=== PATIENT | male | born 1975 | race Caucasian/White ===

== ENCOUNTER → 2017-05-07 09:02 | Outpatient (CLI) | payer BC, SELFPAY ==
[2017-05-07 09:56] LABS: Alanine Aminotransferase 44 U/L (12-78); Albumin Level 3.8 gm/dL (3.4-5.0); Alkaline Phosphatase 127 U/L (46-116); Aspartate Amino Transferase 21 U/L (15-37); Bilirubin,Total 0.7 mg/dL (0.2-1.0); Blood Urea Nitrogen 15 mg/dL (7-18); Carbon Dioxide 30 mmol/L (21.0-32.0); Chloride 100 mmol/L (98-107); Chol/HDL Ratio 3.5 (1-3.5); Cholesterol 161 mg/dL (140-200); Creatinine,Serum 0.96 mg/dL (0.70-1.30); Estimated Glomerular Filt Rate 87 ml/min (>60); GFR (African American) 105 ML/MIN (>60); Glucose 264 mg/dL (74-106); HDL Cholesterol 46 mg/dL (27-67); LDL Cholesterol 102 mg/dL (0-130); Sodium 135 mmol/L (136-145); Thyroid Stimulating Hormone 0.76 uIU/ml (0.358-3.740); Total Protein,Serum 7.8 gm/dL (6.4-8.2); Triglycerides 66 mg/dL (30-200); VLDL Cholesterol 13 mg/dL (0-40)
[2017-05-07 10:59] LABS: Hemoglobin A1C 7.4 % (0.0-7.0)
== END ==
PROVIDERS: PCP Family Medicine; Visit Provider Family Medicine
DX: E10.41 Type 1 diabetes mellitus with diabetic mononeuropathy (principal)
CPT/HCPCS: 36415; 80053; 80061; 83036; 84443

== ENCOUNTER → 2017-08-24 18:02 | Outpatient (REF) | payer BC, SELFPAY ==
[2017-08-24 18:46] LABS: Basophils # 0.1 K/mm3 (0-0.2); Basophils % 0.5 % (0.1-2.0); Eosinophils # 0.1 K/mm3 (0.0-0.4); Eosinophils % 0.5 % (0.1-12.0); Hematocrit 52.7 % (42.0-52.0); Hemoglobin 17.1 g/dL (14.1-18.0); Lymphocytes # 2.8 K/mm3 (0.7-4.5); Lymphocytes % 23.7 K/mm3 (10-50); Mean Corpuscular HGB Conc 32.4 g/dL (31.8-35.4); Mean Corpuscular Hemoglobin 29.4 pg (27.0-31.2); Mean Corpuscular Volume 90.8 fl (80-94); Mean Platelet Volume 7.9 fl (7.4-10.4); Monocytes # 0.6 K/mm3 (0.1-1.0); Monocytes % 5.1 % (1.7-9.3); Neutrophils # 8.2 K/mm3 (1.8-7.8); Neutrophils % 70.2 % (37.0-80.0); Platelet Count 301 K/mm3 (142-424); Red Blood Count 5.81 M/mm3 (4.60-6.20); White Blood Count 11.6 K/mm3 (4.8-10.8)
[2017-08-24 19:20] LABS: Alanine Aminotransferase 52 U/L (12-78); Albumin Level 4.5 gm/dL (3.4-5.0); Albumin/Globulin Ratio 1.2 (1.1-1.8); Alkaline Phosphatase 126 U/L (46-116); Anion Gap 14.3 mEq/L (5-15); Aspartate Amino Transferase 31 U/L (15-37); Bilirubin,Total 0.5 mg/dL (0.2-1.0); Blood Urea Nitrogen 23 mg/dL (7-18); Calcium 9.6 mg/dL (8.5-10.1); Carbon Dioxide 27 mmol/L (21.0-32.0); Chloride 103 mmol/L (98-107); Creatinine,Serum 0.92 mg/dL (0.70-1.30); Estimated Glomerular Filt Rate 91 ml/min (>60); GFR (African American) 110 ML/MIN (>60); Globulin 3.8 gm/dl (1.3-3.2); Glucose 56 mg/dL (74-106); Potassium 4.3 mmoL/L (3.5-5.1); Sodium 140 mmol/L (136-145); Total Protein,Serum 8.3 gm/dL (6.4-8.2)
[2017-08-24 19:44] LABS: Hemoglobin A1C 7.2 % (0.0-7.0)
[2017-08-26 10:32] LABS: Hep A Ab, IgM Negative (Negative); Hepatitis B Core Antibody IgM Negative (Negative); Hepatitis B Surface Antigen Negative (Negative)
[2017-08-26 17:09] LABS: Hepatitis C Antibody <0.1 s/co ratio (0.0-0.9); PSA, Free 0.22 ng/mL; Prostate Specific Ag 0.8 ng/mL (0.0-4.0)
== END ==
LOC: LAB 18:02
PROVIDERS: Visit Provider Nurse Practitioner Family
DX: E10.9 Type 1 diabetes mellitus without complications (principal); R53.83 Other fatigue
CPT/HCPCS: 80053; 80074; 82652; 83036; 84153; 84154; 85025

== ENCOUNTER → 2017-09-07 14:11 | Outpatient (REF) | payer BC, SELFPAY ==
[2017-09-07 18:45] LABS: Basophils % 0.4 % (0.1-2.0); Eosinophils # 0.9 K/mm3 (0.0-0.4); Eosinophils % 10.3 % (0.1-12.0); Hematocrit 47.5 % (42.0-52.0); Hemoglobin 15.7 g/dL (14.1-18.0); Lymphocytes # 1.7 K/mm3 (0.7-4.5); Lymphocytes % 19.4 K/mm3 (10-50); Mean Corpuscular HGB Conc 33.1 g/dL (31.8-35.4); Mean Corpuscular Hemoglobin 29.9 pg (27.0-31.2); Mean Corpuscular Volume 90.5 fl (80-94); Monocytes # 0.4 K/mm3 (0.1-1.0); Monocytes % 4.4 % (1.7-9.3); Neutrophils # 5.9 K/mm3 (1.8-7.8); Neutrophils % 65.6 % (37.0-80.0); Platelet Count 239 K/mm3 (142-424); Red Blood Count 5.25 M/mm3 (4.60-6.20); Red Cell Distribution Width 12.9 % (11.5-17.5); White Blood Count 8.9 K/mm3 (4.8-10.8)
[2017-09-07 19:16] LABS: C-Reactive Protein 1.2 mg/L (0.0-0.9)
[2017-09-07 20:10] LABS: Erythrocyte Sedimentation Rate 6 mm/hr (0-15)
[2017-09-09 18:13] LABS: Peripheral Smear Review Scanned Result
== END ==
LOC: LAB 14:11
PROVIDERS: Visit Provider Nurse Practitioner Family
DX: D72.829 Elevated white blood cell count, unspecified (principal)
CPT/HCPCS: 85025; 85651; 86140

== ENCOUNTER → 2018-03-11 11:03 | Outpatient (CLI) | payer BC, SELFPAY ==
[2018-03-11 12:15] LABS: Basophils % 0.5 % (0.1-2.0); Eosinophils # 0.1 K/mm3 (0.0-0.4); Eosinophils % 0.9 % (0.1-12.0); Hematocrit 52.5 % (42.0-52.0); Hemoglobin 16.7 g/dL (14.1-18.0); Lymphocytes # 2.1 K/mm3 (0.7-4.5); Lymphocytes % 27.2 % (10-50); Mean Corpuscular HGB Conc 31.9 g/dL (31.8-35.4); Mean Corpuscular Hemoglobin 29.3 pg (27.0-31.2); Mean Corpuscular Volume 91.9 fl (80-94); Mean Platelet Volume 7.1 fl (7.4-10.4); Monocytes # 0.4 K/mm3 (0.1-1.0); Monocytes % 5.1 % (1.7-9.3); Neutrophils # 5.2 K/mm3 (1.8-7.8); Neutrophils % 66.3 % (37.0-80.0); Platelet Count 277 K/mm3 (142-424); Red Blood Count 5.72 M/mm3 (4.60-6.20); Red Cell Distribution Width 13.5 % (11.5-17.5); White Blood Count 7.8 K/mm3 (4.8-10.8)
[2018-03-11 12:25] LABS: Hemoglobin A1C 7.8 % (0.0-7.0)
[2018-03-11 14:15] LABS: Alanine Aminotransferase 54 U/L (12-78); Albumin/Globulin Ratio 1.1 (1.1-1.8); Alkaline Phosphatase 114 U/L (46-116); Anion Gap 14.7 mEq/L (5-15); Aspartate Amino Transferase 28 U/L (15-37); Bilirubin,Total 0.8 mg/dL (0.2-1.0); Blood Urea Nitrogen 18 mg/dL (7-18); Calcium 9.2 mg/dL (8.5-10.1); Carbon Dioxide 28 mmol/L (21.0-32.0); Chloride 102 mmol/L (98-107); Chol/HDL Ratio 4.4 (1-3.5); Cholesterol 181 mg/dL (140-200); Creatinine,Serum 0.91 mg/dL (0.70-1.30); Estimated Glomerular Filt Rate 92 ml/min (>60); GFR (African American) 111 ML/MIN (>60); Globulin 3.5 gm/dl (1.3-3.2); Glucose 152 mg/dL (74-106); HDL Cholesterol 41 mg/dL (27-67); LDL Cholesterol 126 mg/dL (0-130); Potassium 4.7 mmoL/L (3.5-5.1); Sodium 140 mmol/L (136-145); T4 (Thyroxine) 8.2 ug/dl (4.7-13.3); Thyroid Stimulating Hormone 0.64 uIU/ml (0.358-3.740); Total Protein,Serum 7.5 gm/dL (6.4-8.2); Triglycerides 70 mg/dL (30-200); VLDL Cholesterol 14 mg/dL (0-40)
[2018-03-12 17:21] LABS: Microalbumin, Urine 6.2 ug/mL (Not Estab.)
[2018-03-13 11:05] LABS: Vitamin D 25 Hydroxy 55.2 ng/mL (30.0-100.0)
== END ==
PROVIDERS: Visit Provider Nurse Practitioner Family
DX: E11.9 Type 2 diabetes mellitus without complications (principal); R53.83 Other fatigue; E55.9 Vitamin D deficiency, unspecified
CPT/HCPCS: 36415; 80053; 80061; 82043; 82652; 83036; 84436; 84443; 85025

== ENCOUNTER → 2019-02-17 08:14 | Outpatient (CLI) | payer BC, SELFPAY ==
[2019-02-17 08:46] LABS: Basophils % 0.4 % (0.1-2.0); Eosinophils # 0.1 K/mm3 (0.0-0.4); Eosinophils % 1.5 % (0.1-12.0); Hematocrit 49.6 % (42.0-52.0); Hemoglobin 15.9 g/dL (14.1-18.0); Lymphocytes # 2.4 K/mm3 (0.7-4.5); Lymphocytes % 31.4 % (10-50); Mean Corpuscular Hemoglobin 29.5 pg (27.0-31.2); Mean Corpuscular Volume 92.2 fl (80-94); Monocytes # 0.4 K/mm3 (0.1-1.0); Monocytes % 4.7 % (1.7-9.3); Neutrophils # 4.8 K/mm3 (1.8-7.8); Neutrophils % 61.9 % (37.0-80.0); Platelet Count 267 K/mm3 (142-424); Red Blood Count 5.38 M/mm3 (4.60-6.20); Red Cell Distribution Width 13.4 % (11.5-17.5); White Blood Count 7.7 K/mm3 (4.8-10.8)
[2019-02-17 09:20] LABS: Hemoglobin A1C 7.2 % (0.0-7.0)
[2019-02-17 10:43] LABS: Alanine Aminotransferase 47 U/L (12-78); Albumin Level 3.6 gm/dL (3.4-5.0); Albumin/Globulin Ratio 1.1 (1.1-1.8); Alkaline Phosphatase 134 U/L (46-116); Anion Gap 14.6 mEq/L (5-15); Aspartate Amino Transferase 21 U/L (15-37); Bilirubin,Total 0.3 mg/dL (0.2-1.0); Blood Urea Nitrogen 20 mg/dL (7-18); Carbon Dioxide 28 mmol/L (21.0-32.0); Chloride 100 mmol/L (98-107); Chol/HDL Ratio 5.5 (1-3.5); Cholesterol 169 mg/dL (140-200); Creatinine,Serum 0.87 mg/dL (0.70-1.30); Estimated Glomerular Filt Rate 96 ml/min (>60); GFR (African American) 116 ML/MIN (>60); Globulin 3.3 gm/dl (1.3-3.2); Glucose 214 mg/dL (74-106); HDL Cholesterol 31 mg/dL (27-67); LDL Cholesterol 103 mg/dL (0-130); Potassium 4.6 mmoL/L (3.5-5.1); Sodium 138 mmol/L (136-145); T4 (Thyroxine) 7.3 ug/dl (4.7-13.3); Thyroid Stimulating Hormone 1.03 uIU/ml (0.358-3.740); Total Protein,Serum 6.9 gm/dL (6.4-8.2); Triglycerides 176 mg/dL (30-200); VLDL Cholesterol 35 mg/dL (0-40)
[2019-02-18 10:36] LABS: Microalbumin, Urine <3.0 ug/mL (Not Estab.)
[2019-02-19 14:49] LABS: Vitamin D 25 Hydroxy 44.5 ng/mL (30.0-100.0)
== END ==
PROVIDERS: Visit Provider Nurse Practitioner Family
DX: E11.9 Type 2 diabetes mellitus without complications (principal); R53.83 Other fatigue; Z79.4 Long term (current) use of insulin
CPT/HCPCS: 36415; 80053; 80061; 82043; 82652; 83036; 84436; 84443; 85025

== ENCOUNTER → 2019-02-24 09:15 | Outpatient (CLI) | payer BC, SELFPAY ==
--- NOTE | 2019-02-24 09:17 | XR_ITS ---
PROCEDURE: XR CHEST 2V CLINICAL HISTORY: elevated alk phos COMPARISON: No exams were available for comparison FINDINGS: The cardiomediastinal silhouette and pulmonary vascularity are within normal limits. The lungs are clear without infiltrates, suspicious nodules, or pleural effusions. No acute bony abnormalities. IMPRESSION: No acute findings. Dictated by: Dr. Jamie Stephen MD 02/24/2019 09:[address] Jamie Stephen MD in [place] 02/24/2019 09:48
--- NOTE | 2019-02-24 09:17 | XR_ITS ---
PROCEDURE: XR SHOULDER LT MIN 2V CLINICAL INDICATION: shoulder pain COMPARISON: No exams were available for comparison FINDINGS: The clavicle is intact and the AC joint appears normal. The humeral head does right somewhat high in the glenoid, suggest clinical correlation for possible rotator cuff pathology. There are no soft tissue calcifications. IMPRESSION: Somewhat high-riding humeral head as noted above, no other significant abnormality noted Dictated by: Dr. Jamie Stephen MD 02/24/2019 09:[address] Jamie Stephen MD in [facility] 02/24/2019 09:50
== END ==
PROVIDERS: PCP Nurse Practitioner Family; Visit Provider Nurse Practitioner Family
DX: R74.8 Abnormal levels of other serum enzymes (principal); M25.512 Pain in left shoulder
CPT/HCPCS: 71046; 73030

== ENCOUNTER 2019-04-06 16:30 | Outpatient (RCR) | payer BC, SELFPAY ==
--- NOTE | 2019-03-22 17:48 | HMH.PTOPEV ---
PT Outpatient Evaluation Rehab PT Outpatient Evaluation Start: 03/22/19 17:15 Freq: Status: Active Protocol: Document 03/22/19 17:15 VALENTINO (Rec: 03/22/19 17:48 VALENTINO [id number]) Electronically Signed By Nasir Berger, PT 03/22/19 17:15 Outpatient Therapy Subjective History Subjective History Patient is a 43 year old male presenting to outpatient PT with reports of B shoulder pain L>R starting approximately 5-6 years ago of insidous onset. Most recent imaging indicates L high- riding humeral head. Comorbidities include HTN, OA and diabetes. Chief Complaint Pain Symptom Type Ache,Throb,Sharp Symptoms Relieved By Rest/Positioning Symptoms Aggravated By Physical Activity Prior Functional Limitations None Current Functional Limitations Reaching,Lifting,Housework, Recreation Activity Symptom Description Intermittent Level of pain today (0-10) 0 Pain scale - at its best (0-10) 0 Pain scale - at its worst (0-10) 8 Shoulder/Elbow Eval Shoulder Objective Measurements Palpation Tenderness tenderness shoulder exam standard bilateral tenderness over the SA bursa shoulder bilateral exam standard Shoulder Palpation Findings Tenderness Shoulder Palpation Overall Comment B upper trap, ACJ, infraspinatus Posture Shoulder Posture Sitting Position (L) Forward,(R) Forward Shoulder Posture Standing Position (L) Forward,(R) Forward Scapula Posture Sitting Position (L) Protracted,(R) Protracted Scapular Posture Standing Position (L) Protracted,(R) Protracted Flexibilty Deficits Pectoralis Minor Muscle Length (R) Moderate Tightness,(L) Moderate Tightness Upper Trapezius Muscle Length (R) Moderate Tightness,(L) Moderate Tightness Shoulder ROM Left Shoulder Abduction Active Range of 152 Motion (degrees) Shoulder Flexion Active Range of Motion 122 (degrees) Query Text: Shoulder External Rotation Active Range 80 of Motion (degrees) Shoulder Internal Rotation Active Range 52 of Motion (degrees) pain with active ROM shoulder exam bilateral standard Right Shoulder Abduction Active Range of 135 Motion (degrees) Shoulder Flexion Active Range of Motion 154 (degrees) Query Text: Shoulder External Rotation Active Range 54 of Motion (degrees)
== END 2019-04-06 17:24 | disposition home or self-care (01) ==
LOC: PT 16:30
PROVIDERS: Visit Provider Orthopaedic Surgery
DX: M75.102 Unspecified rotator cuff tear or rupture of left shoulder, not specified as traumatic (principal); M75.101 Unspecified rotator cuff tear or rupture of right shoulder, not specified as traumatic
CPT/HCPCS: 97110; 97163

== ENCOUNTER → 2019-05-29 08:28 | Outpatient (CLI) | payer BC, SELFPAY ==
[2019-05-29 09:07] LABS: Basophils % 0.5 % (0.1-2.0); Eosinophils # 0.1 K/mm3 (0.0-0.4); Eosinophils % 1.4 % (0.1-12.0); Hematocrit 50.6 % (42.0-52.0); Hemoglobin 16.3 g/dL (14.1-18.0); Lymphocytes # 2.2 K/mm3 (0.7-4.5); Lymphocytes % 31.4 % (10-50); Mean Corpuscular HGB Conc 32.2 g/dL (31.8-35.4); Mean Corpuscular Hemoglobin 29.9 pg (27.0-31.2); Mean Corpuscular Volume 92.8 fl (80-94); Mean Platelet Volume 7.9 fl (7.4-10.4); Monocytes # 0.4 K/mm3 (0.1-1.0); Monocytes % 5.1 % (1.7-9.3); Neutrophils # 4.4 K/mm3 (1.8-7.8); Neutrophils % 61.6 % (37.0-80.0); Platelet Count 271 K/mm3 (142-424); Red Blood Count 5.45 M/mm3 (4.60-6.20); Red Cell Distribution Width 13.1 % (11.5-17.5); White Blood Count 7.1 K/mm3 (4.8-10.8)
[2019-05-29 10:10] LABS: Alanine Aminotransferase 36 U/L (12-78); Albumin Level 4.3 g/dl (3.5-5.0); Albumin/Globulin Ratio 1.4 (1.1-1.8); Alkaline Phosphatase 108 U/L (38-126); Anion Gap 10.3 mEq/L (5-15); Aspartate Amino Transferase 39 U/L (17-59); Bilirubin,Total 0.7 mg/dl (0.2-1.3); Blood Urea Nitrogen 23 mg/dl (9-20); Calcium 9.6 mg/dl (8.4-10.2); Carbon Dioxide 28 mmol/L (22.0-30.0); Chloride 104 mmol/L (98-107); Chol/HDL Ratio 3.5 (1-3.5); Cholesterol 169 mg/dl (140-200); Estimated Glomerular Filt Rate 93 ml/min (>60); GFR (African American) 112 ML/MIN (>60); HDL Cholesterol 48 mg/dl (40-60); Potassium 4.3 mmoL/L (3.5-5.1); Sodium 138 mmol/L (136-145); Total Protein,Serum 7.3 g/dl (6.3-8.2); Triglycerides 126 mg/dl (30-150); VLDL Cholesterol 25 mg/dL (0-40)
[2019-05-29 10:13] LABS: Glucose 43 mg/dl (74-100)
[2019-05-29 10:17] LABS: Hemoglobin A1C 6.1 % (4.0-6.0)
[2019-05-29 10:21] LABS: Direct LDL Cholesterol 111.18 mg/dL (100-129)
[2019-05-29 10:27] LABS: T4 (Thyroxine) 6.1 ug/dl (5.53-11.0)
[2019-05-30 10:51] LABS: Vitamin D 25 Hydroxy 42.7 ng/mL (30.0-100.0)
== END ==
PROVIDERS: Visit Provider Physician Assistant
DX: E11.9 Type 2 diabetes mellitus without complications (principal); Z79.4 Long term (current) use of insulin; Z79.899 Other long term (current) drug therapy
CPT/HCPCS: 36415; 80053; 80061; 82652; 83036; 84436; 84443; 85025

== ENCOUNTER → 2019-09-15 08:17 | Outpatient (CLI) | payer BC, SELFPAY ==
[2019-09-15 08:30] LABS: Basophils # 0.1 K/mm3 (0-0.2); Basophils % 0.7 % (0.1-2.0); Eosinophils # 0.1 K/mm3 (0.0-0.4); Eosinophils % 1.8 % (0.1-12.0); Hemoglobin 16.4 g/dL (14.1-18.0); Lymphocytes # 2.6 K/mm3 (0.7-4.5); Lymphocytes % 32.1 % (10-50); Mean Corpuscular HGB Conc 34.1 g/dL (31.8-35.4); Mean Corpuscular Hemoglobin 31.1 pg (27.0-31.2); Mean Corpuscular Volume 91.1 fl (80-94); Mean Platelet Volume 7.5 fl (7.4-10.4); Monocytes # 0.5 K/mm3 (0.1-1.0); Monocytes % 5.7 % (1.7-9.3); Neutrophils # 4.8 K/mm3 (1.8-7.8); Neutrophils % 59.8 % (37.0-80.0); Platelet Count 256 K/mm3 (142-424); Red Blood Count 5.27 M/mm3 (4.60-6.20); Red Cell Distribution Width 13.3 % (11.5-17.5); White Blood Count 8.1 K/mm3 (4.8-10.8)
[2019-09-15 08:59] LABS: Hemoglobin A1C 6.9 % (4.0-6.0)
[2019-09-15 09:15] LABS: Chloride 104 mmol/L (98-107); Sodium 140 mmol/L (136-145)
[2019-09-15 09:16] LABS: Potassium 4.6 mmoL/L (3.5-5.1)
[2019-09-15 09:18] LABS: Alanine Aminotransferase 37 U/L (12-78); Albumin Level 3.9 g/dl (3.5-5.0); Albumin/Globulin Ratio 1.3 (1.1-1.8); Alkaline Phosphatase 109 U/L (38-126); Anion Gap 10.6 mEq/L (5-15); Aspartate Amino Transferase 31 U/L (17-59); Bilirubin,Total 0.5 mg/dl (0.2-1.3); Blood Urea Nitrogen 17 mg/dl (9-20); Carbon Dioxide 30 mmol/L (22.0-30.0); Cholesterol 157 mg/dl (140-200); Estimated Glomerular Filt Rate 106 ml/min (>60); GFR (African American) 128 ML/MIN (>60); Total Protein,Serum 6.9 g/dl (6.3-8.2); Triglycerides 114 mg/dl (30-150); VLDL Cholesterol 23 mg/dL (0-40)
[2019-09-15 09:19] LABS: Calcium 9.2 mg/dl (8.4-10.2); Chol/HDL Ratio 4.4 (1-3.5); Glucose 103 mg/dl (74-100); HDL Cholesterol 36 mg/dl (40-60)
[2019-09-15 09:29] LABS: Direct LDL Cholesterol 97.69 mg/dL (100-129); Microalbumin < 6.000 mg/L (0-16.7)
[2019-09-15 09:36] LABS: T4 (Thyroxine) 6.2 ug/dl (5.53-11.0)
[2019-09-15 10:30] LABS: Creatinine,Urine Random 146 mg/dL (Not Estab.)
== END ==
PROVIDERS: Visit Provider Nurse Practitioner Family
DX: E11.9 Type 2 diabetes mellitus without complications (principal); F32.9 Major depressive disorder, single episode, unspecified; Z79.4 Long term (current) use of insulin
CPT/HCPCS: 36415; 80053; 80061; 82043; 82570; 83036; 84436; 84443; 85025

== ENCOUNTER 2019-11-09 16:02 | Emergency (ER) | payer BC, SELFPAY ==
[2019-11-09 16:15] VITALS: BP 145/93; PULSE 110; RESP 18; TEMP 36.7; O2SAT 96; BMI 34.8
--- NOTE | 2019-11-09 16:53 | HMH.EDUTC ---
[facility] [place] Impression: Knee swelling Knee pain Qualifiers: Chronicity: acute Laterality: right Qualified Code(s): M25.561 - Pain in right knee Disposition: Home, Self-Care Condition on Discharge: Good Instructions: DI for Knee Pain Additional Instructions: Rest the extremity, Elevate the extremity as tolerated while you are resting. Follow up with Dr. Martinez (orthopedics) if you are not getting better within 48 to 72 hours. I put in a referral but you need to call her office and schedule an appointment. Follow up with your regular doctor. GO TO THE ER FOR ANY WORSENING SYMPTOMS Prescriptions: Sulfamethoxazole/Trimethoprim [Bactrim DS tablet] 1 each PO BID 10 Days #20 tab Transmission Status: Received by [id number] cephALEXin [Keflex 500mg Cap] 500 mg PO Q6H 10 Days #40 cap Transmission Status: Received by [id number] methylPREDNISolone [Medrol] 4 mg PO DIRECTED 6 Days #21 tab.ds.pk Transmission Status: Received by [id number] Referrals: Checo Alicia APRN [Primary Care Provider] - Diane Martinez MD [Physician] - Time of Disposition: 16:57 Medical Decision Making - Medical Records Medical records reviewed: No: I reviewed the patient's medical records. - Marcin Inquiry Pt receiving controlled substance: No Vital Signs: 11/09/19 16:15 11/09/19 17:29 Temperature 98.1 F 98.1 F Temperature Source Oral Oral Pulse Rate 110 H Pulse Rate [Radial] 110 H Respiratory Rate 18 18 Blood Pressure 145/93 H Blood Pressure [Right Arm] 145/93 H Blood Pressure Mean [Right Arm] 110 Blood Pressure Source Automatic Cuff Blood Pressure Source [Right Arm] Automatic Cuff Blood Pressure Position Sitting Blood Pressure Position [Right Arm] Sitting 02 Sat by Pulse Oximetry 96 Oxygen Delivery Method Room Air Room Air Orders (Tests/Meds): ED MEDICATIONS Discontinued Medications Generic Name Dose Route Start Last Admin Trade Name Freq PRN Reason Stop Dose Admin Ceftriaxone Sodium 1 gm 11/09/19 17:07 11/09/19 17:21 Ceftriaxone 1gm Vial IM 11/09/19 17:08 1 gm ONCE ONE Administration Protocol Lidocaine HCl 0 ml 11/09/19 17:07 11/09/19 17:21 Lidocaine 1% 5ml Pf Vial IM 11/09/19 17:08 2.1 ml ONCE ONE Administration Methylprednisolone Sodium Succinate 125 mg 11/09/19 17:07 11/09/19 17:21 Methylprednisolone Sod Succ 125mg Vial IM 11/09/19 17:08 125 mg ONCE ONE [place] [facility] [place] - General Stated complaint: R Knee swollen Time Seen by Provider: 11/09/19 16:53 Mode of Arrival: Ambulatory Source of Information: Patient Limitations: No Limitations Description of Symptoms (Recalled from Triage Doc. by RN): right knee pain. swollen. states he has been crawling aroun on it this past week. HEENT Symptoms (Recalled from RN notes): No Resp Symptoms (Recalled from RN notes): No Skin Symptoms (Recalled from RN notes): Yes MS Symptoms (Recalled from RN notes): No Functional Status (Recalled from RN notes): wnl - History of Present Illness Provider Complaint: He states that he is having right knee pain and swelling. The joint has felt warm to touch also. His symptoms began 2 days ago. He denies any fever or chills. - Related Data Home Medications Medication Instructions Recorded Confirmed cholecalciferol (vitamin D3) 50 2,000 unit PO DAILY cap 08/24/17 11/01/19 mcg (2,000 unit) capsule cinnamon bark 500 mg capsule 1,000 mg PO DAILY cap 08/24/17 11/01/19 sour guardado extract 1,000 mg 1,200 mg PO DAILY cap 08/24/17 11/01/19 capsule vitamin B12 500 mcg-folic acid 400 5 tab PO DAILY tab 08/24/17 11/01/19 mcg tablet Previous Rx's Medication Instructions Recorded aspirin 81 mg tablet,delayed 81 mg PO DAILY #90 tab 06/08/19 release cetirizine 10 mg tablet 10 mg PO QDAY 90 Days #90 tab 08/02/19 insulin glargine 100 unit/mL 72 unit SQ QHS #10 ml 09/13/19 subcutaneous solution i
[2019-11-09 17:29] VITALS: BP 145/93; PULSE 110; RESP 18; TEMP 36.7; O2SAT 96
== END 2019-11-09 17:35 | disposition home or self-care (01) ==
PROVIDERS: Emergency Provider Nurse Practitioner Family; PCP Nurse Practitioner Family
DX: M25.461 Effusion, right knee (principal); M25.561 Pain in right knee; I10 Essential (primary) hypertension; E11.9 Type 2 diabetes mellitus without complications; E78.5 Hyperlipidemia, unspecified; Z88.0 Allergy status to penicillin; Z79.899 Other long term (current) drug therapy
CPT/HCPCS: 96372; 99201

== ENCOUNTER → 2019-11-13 10:51 | Outpatient (CLI) | payer BC, SELFPAY ==
[2019-11-13 12:24] LABS: Prostate Specific Ag Screen 0.6 ng/ml (0.0-4.0)
[2019-11-14 15:50] LABS: Estradiol 31.9 pg/mL (7.6-42.6)
[2019-11-18 21:27] LABS: Testosterone, Total, LC/MS 431.8 ng/dL (264.0-916.0); Testosterone,Free 5.3 pg/mL (6.8-21.5)
== END ==
PROVIDERS: Visit Provider Urology
DX: R35.1 Nocturia (principal); Z12.5 Encounter for screening for malignant neoplasm of prostate
CPT/HCPCS: 36415; 82670; 84402; 84403; G0103

== ENCOUNTER → 2019-11-26 14:36 | Outpatient (CLI) | payer BC, SELFPAY ==
[2019-11-26 14:57] LABS: Uric Acid 3.3 mg/dl (3.5-8.5)
[2019-11-26 15:03] LABS: Basophils % 0.5 % (0.1-2.0); Eosinophils # 0.2 K/mm3 (0.0-0.4); Eosinophils % 1.9 % (0.1-12.0); Hematocrit 51.8 % (42.0-52.0); Hemoglobin 16.5 g/dL (14.1-18.0); Lymphocytes # 1.5 K/mm3 (0.7-4.5); Lymphocytes % 19.4 % (10-50); Mean Corpuscular HGB Conc 31.8 g/dL (31.8-35.4); Mean Corpuscular Hemoglobin 29.5 pg (27.0-31.2); Mean Corpuscular Volume 92.8 fl (80-94); Mean Platelet Volume 7.9 fl (7.4-10.4); Monocytes # 0.5 K/mm3 (0.1-1.0); Monocytes % 6.4 % (1.7-9.3); Neutrophils # 5.5 K/mm3 (1.8-7.8); Neutrophils % 71.7 % (37.0-80.0); Platelet Count 311 K/mm3 (142-424); Red Blood Count 5.59 M/mm3 (4.60-6.20); Red Cell Distribution Width 13.4 % (11.5-17.5); White Blood Count 7.7 K/mm3 (4.8-10.8)
[2019-11-26 15:05] LABS: Erythrocyte Sedimentation Rate 10 mm/hr (0-15)
== END ==
PROVIDERS: Visit Provider Physician Assistant
DX: M25.561 Pain in right knee (principal); M25.461 Effusion, right knee; L02.415 Cutaneous abscess of right lower limb; T14.8XXA Other injury of unspecified body region, initial encounter; E11.9 Type 2 diabetes mellitus without complications; Z79.4 Long term (current) use of insulin
CPT/HCPCS: 84550; 85025; 85651; 87070; 87077; 87186; 87205

== ENCOUNTER → 2020-01-11 07:49 | Outpatient (CLI) | payer BC, SELFPAY ==
--- NOTE | 2020-01-11 07:52 | XR_ITS ---
PROCEDURE: XR ELBOW LT MIN 3V CLINICAL INDICATION: Elbow pain COMPARISON: No exams were available for comparison FINDINGS: No fracture or dislocation. No lytic or blastic change. There is normal mineralization. The joint spaces are well-preserved. No significant degenerative/arthritic changes. No erosive changes evident. Other findings:None. IMPRESSION: Negative left elbow Dictated by: Gera Cleary MD 01/11/2020 15:19 Gera Cleary MD in [place] 01/11/2020 15:19
--- NOTE | 2020-01-11 07:52 | XR_ITS ---
PROCEDURE: XR KNEE RT 4V CLINICAL INDICATION: RT knee pain COMPARISON: No exams were available for comparison FINDINGS: No fracture or dislocation. No lytic or blastic change. There is normal mineralization. The joint spaces are well-preserved. No significant degenerative/arthritic changes. No erosive changes evident. Other findings:May be a small suprapatellar effusion IMPRESSION: Possible small suprapatellar effusion otherwise negative right knee Dictated by: Gera Cleary MD 01/11/2020 15:18 Gera Cleary MD in [place] 01/11/2020 15:18
== END ==
PROVIDERS: PCP Emergency Medicine; Visit Provider Orthopaedic Surgery
DX: M25.522 Pain in left elbow (principal); M25.561 Pain in right knee
CPT/HCPCS: 73080; 73564; 87070; 87205

== ENCOUNTER → 2020-04-11 09:21 | Outpatient (CLI) | payer OTHER, SELFPAY ==
--- NOTE | 2020-04-11 | CA_ITS ---
APPROVED REPORT Exam: Exercise Treadmill Technologist: Michela Alvarado, Ht: 5 ft 11 in Wt: 265 lbs BSA: 2.38 m2 HR: 91 bpm BP: 133/86 mmHg Medical History Medications: Lisinopril,,,,, Simvastatin,,,,, Effexor,,,,, Lexapro,,,,, Allopurinol,,,,, VenALafaxine,,,,, Stress Test Details Test: Barrington HR Resting HR: 100 bpm Max Heart Rate (APMHR): 177 bpm Max HR Achieved: 152 bpm Target HR (85% APMHR): 150 bpm % of APMHR: 85 Recovery HR: 108 bpm BP Resting BP: 134/81 mmHg Max BP: 162/98 mmHg Recovery BP: 154.0/90.0 mmHg ECG Resting ECG: Sinus Rhythm Clinical Exercise duration: 06:49 min Highest Stage Achieved: Exercise capacity: 7.0 METs Stress ECG Conclusion Barrington Protocol completed. Exercised 06:49. Stopped due to shortness of breath, resolved in recovery. Met's: 7.0 Max BP: 162/98 Max HR: 152 % of PM: 86% Symptoms: No CP, (+) SOB during peak exercise. Arrhythmias/Ectopy: No Ectopy ST-T Changes: Less than 1.5mm ST depression. Conclusion: 1.) GTX only 2.) average exercise capacity 3.) No Ectopy 4.) appropriate BP response 5.) Less than 1.5mm ST depression Electronically signed by : Jose Sargent, 04/14/2020 08:43:21
== END ==
PROVIDERS: PCP Family Medicine; Visit Provider Family Medicine
DX: R06.09 Other forms of dyspnea (principal)
CPT/HCPCS: 93017

== ENCOUNTER → 2020-06-04 12:44 | Outpatient (CLI) | payer OTHER, SELFPAY ==
--- NOTE | 2020-06-04 12:47 | CA_ITS ---
APPROVED REPORT EXAM: Comprehensive 2D, Doppler, and color-flow Echocardiogram Knife Machine Operator: Geovanna Bhagat RVT Ht: 5 ft 11 in Wt: 268lbs BSA: 2.39 BP: 132/84 mmHg Indications: SOA,DM,HTN,HLD,ASTHMA 2D Dimensions LVOT 2.40 cm (M/F) 1.5-2.5 LA Volume 21.20 mL LA Volume Index 8.87 mL/m2 (M/F) 16-34 M-Mode Dimensions RVDd 3.08 cm (0.9-2.6) LA Diam 3.39 cm (1.9-4.0) LVDd 4.48 cm (3.5-5.7) Ao Diam 2.86 cm (2.0-3.7) LVDs 2.89 cm (3.5-5.7) IVSd 1.67 cm (0.6-1.1) PWd 1.00 cm (0.6-1.1) EF (Teich) 65.10% FS 35.50% EDV (Teich) 91.50 mL ESV (Teich) 31.90 mL LV Diastology E Decel Time 153.00 (160-240 msec) E/A Ratio 1.0 MED E' 6.20 (< 7 cm/sec) E'/MED E' Ratio 10.94 (>14) LAT E' 8.40 (<10 cm/sec) E/LAT E' Ratio 8.07 (>14) Mitral Valve MV E Max David. 68.00 (40-130 cm/s) MV A Velocity 67.00 (40-130 cm/s) E/A Ratio 1.01 MV Decel. Time 153.00 (160-240 ms) MV PHT 45.00 ms Pulmonary Valve PV Peak Velocity 84.00 (50-150 cm/s) Left Ventricle Left atrium is normal size, left ventricle is normal size, there is no concentric left ventricular hypertrophy, visually estimated ejection fraction 55% with no regional wall motion abnormality, diastolic parameters are inconclusive. Right Ventricle Right atrium and right ventricle are mildly enlarged with normal contractility. Aortic Valve Aortic valve is grossly normal, there is no aortic stenosis or aortic insufficiency. Mitral Valve Mitral valve is grossly normal, there is trace mitral regurgitation. Tricuspid Valve Tricuspid grossly normal, there is trace tricuspid regurgitation, tricuspid regurgitation jet velocity is inadequate for calculation of the right ventricular systolic pressure. Pulmonic Valve Pulmonic valve is poorly visualized. Great Vessels Aortic root is normal size. No significant pericardial effusion noted. Conclusion 1. Normal left ventricular size, preserved left ventricular systolic function, visually estimated ejection fraction 55% with no regional wall motion abnormality, diastolic parameters are inconclusive. 2. Mildly enlarged right ventricle with normal contractility. 3. Trace mitral and tricuspid regurgitation. 4. No significant pericardial effusion noted. Electronically signed by : Thanh Lawton, 06/05/2020 15:07:13
== END ==
PROVIDERS: PCP Nurse Practitioner Family; Visit Provider Nurse Practitioner Family
DX: R06.02 Shortness of breath (principal)
CPT/HCPCS: 93306

== ENCOUNTER → 2020-06-12 14:52 | Outpatient (CLI) | payer OTHER, SELFPAY ==
--- NOTE | 2020-06-12 15:30 | PC.NURSE ---
PFT completed on Pt without incident. Albuterol 0.083% given per written protocol, Pt tolerated tx well.
== END ==
PROVIDERS: PCP Nurse Practitioner Family; Visit Provider Nurse Practitioner Family
DX: R06.02 Shortness of breath (principal)
CPT/HCPCS: 94060; 94726; 94729

== ENCOUNTER → 2020-07-09 15:15 | Outpatient (CLI) | payer OTHER, SELFPAY ==
[2020-07-09 16:02] LABS: Uric Acid 3.5 mg/dl (3.5-8.5)
[2020-07-09 16:07] LABS: C-Reactive Protein 12.4 mg/L (0-4)
[2020-07-09 16:18] LABS: Coronavirus 19 IgG Antibody Positive (Negative); Coronavirus 19 IgM Antibody Negative (Negative)
[2020-07-09 21:28] LABS: Erythrocyte Sedimentation Rate 8 mm/hr (0-15)
[2020-07-11 11:16] LABS: RA Latex Turbid. <10.0 IU/mL (0.0-13.9)
[2020-07-11 17:32] LABS: Cytoplasmic (C-ANCA) <1:20 titer (Neg:<1:20); Perinuclear (P-ANCA) <1:20 titer (Neg:<1:20)
[2020-07-12 18:59] LABS: Antinuclear Antibodies, IFA Negative (.)
[2020-07-27 10:51] LABS: Antinuclear Antibodies (ANA) NEGATIVE
== END ==
PROVIDERS: Visit Provider Internal Medicine Pulmonary Disease
DX: R06.00 Dyspnea, unspecified (principal); J84.9 Interstitial pulmonary disease, unspecified; J98.4 Other disorders of lung; Z86.16 Personal history of COVID-19
CPT/HCPCS: 36415; 84550; 85651; 86038; 86140; 86225; 86235; 86256; 86328; 86431

== ENCOUNTER → 2020-07-18 07:32 | Outpatient (CLI) | payer OTHER, SELFPAY ==
--- NOTE | 2020-07-18 07:32 | CT_ITS ---
PROCEDURE INFORMATION: Exam: CT Chest Without Contrast; Diagnostic; High Resolution Exam date and time: 07/18/2020 7:32 AM Age: 44 years old Clinical indication: Dyspnea; Patient HX: SOA x 1 year. Scans done supine on inspiration and expiration; Prone on inspiration TECHNIQUE: Imaging protocol: Diagnostic computed tomography of the chest without contrast. Exam was performed with high resolution protocol. Radiation optimization: All CT scans at this facility use at least one of these dose optimization techniques: automated exposure control; mA and/or kV adjustment per patient size (includes targeted exams where dose is matched to clinical indication); or iterative reconstruction. COMPARISON: CR XR CHEST 2V 02/24/2019 9:21 AM FINDINGS: Lungs: Atelectatic changes within both lung bases without focal pneumonia. 5 mm pleural based nodule present within the left lower lobe. Other scattered nodules present within the upper lobes bilaterally measuring 1-2 mm. Scattered granulomatous densities present within both lungs. Pleural space: There is no evidence of pneumothorax. There are no pleural effusions present. Heart: Unremarkable. No cardiomegaly. No pericardial effusion. Aorta: Unremarkable. No aortic aneurysm. Lymph nodes: Calcified mediastinal and right hilar lymph nodes present, likely related to granulomatous changes. Diaphragm: There is nonspecific elevation of the right hemidiaphragm. Bones/joints: The thoracic spine demonstrates mild degenerative changes at multiple levels. Soft tissues: Unremarkable. IMPRESSION: 1. Atelectatic changes within both lung bases without focal pneumonia. 2. There is no evidence of pneumothorax. 3. 5 mm pleural based nodule present within the left lower lobe.For patients at low risk (minimal or absent history of smoking and of other known risk factors), no routine follow-up is indicated. For patients at high risk (history of smoking or of other known risk factors), consider optional CT Chest at 12 months. (Reference: Tara) 4. Calcified mediastinal and right hilar lymph nodes present, likely related to granulomatous changes. REFERENCES: Tara H, et al. Guidelines for Management of Incidental Pulmonary Nodules Detected on CT Images: From the Fleischner Society 2017. Radiology. 2017;284(1):228-243.
== END ==
LOC: RAD 07:32
PROVIDERS: PCP Nurse Practitioner Family; Visit Provider Internal Medicine Pulmonary Disease
DX: R06.00 Dyspnea, unspecified (principal); R06.02 Shortness of breath; J84.9 Interstitial pulmonary disease, unspecified; J98.4 Other disorders of lung
CPT/HCPCS: 71250

== ENCOUNTER → 2020-10-01 14:39 | Outpatient (CLI) | payer OTHER, SELFPAY ==
[2020-10-01 15:30] LABS: Creatine Kinase 251 U/L (55-170)
[2020-10-03 12:06] LABS: Anti-Centromere B Antibodies <0.2 AI (0.0-0.9); Anti-DNA (DS) Ab Qn <1 IU/mL (0-9); Antiribosomal P Antibodies <0.2 AI (0.0-0.9); Antiscleroderma-70 Antibodies <0.2 AI (0.0-0.9); RNP Antibodies 0.4 AI (0.0-0.9); Sjogren's Anti-SS-A <0.2 AI (0.0-0.9); Sjogren's Anti-SS-B <0.2 AI (0.0-0.9)
[2020-10-03 17:18] LABS: Cytoplasmic (C-ANCA) <1:20 titer (Neg:<1:20); Perinuclear (P-ANCA) <1:20 titer (Neg:<1:20)
[2020-10-03 23:44] LABS: Anti-Cyclic Citrullinated Pept 8 units (0-19)
[2020-10-10 13:34] LABS: Aspergillus fumigatus IgG Negative (Negative); Pigeon Serum Abs Negative (Negative)
== END ==
LOC: LAB 14:39
PROVIDERS: Visit Provider Internal Medicine Pulmonary Disease
DX: J84.9 Interstitial pulmonary disease, unspecified (principal); J84.10 Pulmonary fibrosis, unspecified; J44.9 Chronic obstructive pulmonary disease, unspecified; J98.4 Other disorders of lung
CPT/HCPCS: 36415; 82085; 82550; 83516; 86200; 86225; 86235; 86256; 86331; 86602; 86606; 86609

== ENCOUNTER → 2020-10-07 09:18 | Outpatient (CLI) | payer OTHER, SELFPAY ==
--- NOTE | 2020-10-07 09:19 | NM_ITS ---
PROCEDURE: NM PUL VENT AND PERFUSE CLINICAL INDICATION: dyspnea COMPARISON: CT CT HR CHEST X3 from 07/18/2020 TECHNIQUE: Dose 35.7 mCi technetium DTPA inhaled 7.64 mCi technetium MAA IV FINDINGS: There is normal perfusion with no segmental or subsegmental defect. Right hemidiaphragm is somewhat elevated as seen on previous chest CT. Ventilation images are unremarkable. IMPRESSION: Normal VQ scan. No evidence of pulmonary embolus. Dictated by: Gera Cleary MD 10/07/2020 17:55 Gera Cleary MD in [place] 10/07/2020 17:55
--- NOTE | 2020-10-07 11:15 | HMH.ITSHM ---
Current Home Medications as stated by this patient Raghav Alicia or medical center representative. []VITAMIN B12 VENLAFAXINE SIMVASTATIN PAROXETINE MONTELUKAST LISINOPRIL INSULIN DICLOFENAC CETIRIZINE ASA ALLOPURINOL
--- NOTE | 2020-10-07 11:21 | XR_ITS ---
PROCEDURE: XR CHEST 2V CLINICAL HISTORY: DYSPNEA, VQ SCAN ALSO DONE TODAY COMPARISON: CR XR CHEST 2V from 02/24/[address] HR CHEST X3 from 07/18/2020 FINDINGS: The cardiomediastinal silhouette and pulmonary vascularity are within normal limits. Lungs are clear. No acute bony abnormalities. IMPRESSION: No acute findings. Dictated by: Gera Cleary MD 10/07/2020 12:27 Gera Cleary MD in [place] 10/07/2020 12:27
== END ==
LOC: RAD 09:18
PROVIDERS: PCP Nurse Practitioner Family; Visit Provider Internal Medicine Pulmonary Disease
DX: R06.00 Dyspnea, unspecified (principal); Z86.16 Personal history of COVID-19
CPT/HCPCS: 71046; 78582; A9540; A9567

== ENCOUNTER → 2020-10-23 14:16 | Outpatient (CLI) | payer BC, SELFPAY | LOC: RT 14:17 | PROVIDERS: PCP Nurse Practitioner Family; Visit Provider Internal Medicine Pulmonary Disease | DX: R06.00 Dyspnea, unspecified (principal) | CPT/HCPCS: 94070; 95070; J7674 ==

== ENCOUNTER → 2021-05-11 19:19 | Outpatient (CLI) | payer BC, SELFPAY ==
[2021-05-11 17:49] LABS: Alanine Aminotransferase 46 U/L (12-78); Albumin Level 4.4 g/dl (3.5-5.0); Albumin/Globulin Ratio 1.5 (1.1-1.8); Alkaline Phosphatase 126 U/L (38-126); Anion Gap 9.7 mEq/L (5-15); Aspartate Amino Transferase 45 U/L (17-59); Bilirubin,Total 0.5 mg/dl (0.2-1.3); Blood Urea Nitrogen 17 mg/dl (9-20); Calcium 9.2 mg/dl (8.4-10.2); Carbon Dioxide 30 mmol/L (22.0-30.0); Chloride 103 mmol/L (98-107); Chol/HDL Ratio 6.3 (1-3.5); Cholesterol 183 mg/dl (140-200); Estimated Glomerular Filt Rate 105 ml/min (>60); GFR (African American) 127 ML/MIN (>60); Glucose 179 mg/dl (74-100); HDL Cholesterol 29 mg/dl (40-60); Potassium 4.7 mmoL/L (3.5-5.1); Sodium 138 mmol/L (136-145); Total Protein,Serum 7.4 g/dl (6.3-8.2)
[2021-05-11 17:52] LABS: Basophils # 0.1 K/mm3 (0-0.2); Basophils % 0.9 % (0.1-2.0); Eosinophils # 0.1 K/mm3 (0.0-0.4); Eosinophils % 0.9 % (0.1-12.0); Hematocrit 49.5 % (42.0-52.0); Hemoglobin 16.3 g/dL (14.1-18.0); Lymphocytes # 2.5 K/mm3 (0.7-4.5); Lymphocytes % 24.9 % (10-50); Mean Corpuscular HGB Conc 32.9 g/dL (31.8-35.4); Mean Corpuscular Hemoglobin 30.7 pg (27.0-31.2); Mean Corpuscular Volume 93.4 fl (80-94); Mean Platelet Volume 8.7 fl (7.4-10.4); Monocytes # 0.6 K/mm3 (0.1-1.0); Monocytes % 5.5 % (1.7-9.3); Neutrophils # 6.7 K/mm3 (1.8-7.8); Neutrophils % 67.9 % (37.0-80.0); Platelet Count 271 K/mm3 (142-424); Red Cell Distribution Width 13.4 % (11.5-17.5); White Blood Count 9.9 K/mm3 (4.8-10.8)
[2021-05-11 17:59] LABS: Triglycerides 598 mg/dl (30-150)
[2021-05-11 18:00] LABS: Direct LDL Cholesterol 82.56 mg/dL (100-129)
[2021-05-11 18:06] LABS: Free T4 (Free Thyroxine) 1.14 ng/dl (0.78-2.19)
[2021-05-11 18:20] LABS: Thyroid Stimulating Hormone 0.65 uIU/mL (0.465-4.68)
[2021-05-11 18:27] LABS: Hemoglobin A1C 6.7 % (4.0-6.0)
[2021-05-11 18:50] LABS: 25-OH Vitamin D, Total 37.6 ng/mL (30-100)
== END ==
PROVIDERS: Visit Provider Nurse Practitioner Family
DX: E10.9 Type 1 diabetes mellitus without complications (principal); Z79.4 Long term (current) use of insulin
CPT/HCPCS: 80053; 80061; 82306; 83036; 84436; 84439; 84443; 85025

== ENCOUNTER → 2021-08-26 07:02 | Outpatient (CLI) | payer OTHER, SELFPAY ==
[2021-08-26 07:39] LABS: Basophils # 0.1 K/mm3 (0-0.2); Basophils % 0.7 % (0.1-2.0); Eosinophils # 0.2 K/mm3 (0.0-0.4); Hematocrit 46.9 % (42.0-52.0); Hemoglobin 15.6 g/dL (14.1-18.0); Lymphocytes # 2.4 K/mm3 (0.7-4.5); Lymphocytes % 26.7 % (10-50); Mean Corpuscular HGB Conc 33.3 g/dL (31.8-35.4); Mean Corpuscular Hemoglobin 30.2 pg (27.0-31.2); Mean Corpuscular Volume 90.6 fl (80-94); Mean Platelet Volume 7.3 fl (7.4-10.4); Monocytes # 0.5 K/mm3 (0.1-1.0); Monocytes % 5.4 % (1.7-9.3); Neutrophils # 5.9 K/mm3 (1.8-7.8); Neutrophils % 65.2 % (37.0-80.0); Platelet Count 293 K/mm3 (142-424); Red Blood Count 5.18 M/mm3 (4.60-6.20); Red Cell Distribution Width 13.4 % (11.5-17.5); White Blood Count 9.1 K/mm3 (4.8-10.8)
[2021-08-26 08:18] LABS: Alanine Aminotransferase 40 U/L (12-78); Albumin/Globulin Ratio 1.4 (1.1-1.8); Alkaline Phosphatase 148 U/L (38-126); Anion Gap 10.2 mEq/L (5-15); Aspartate Amino Transferase 37 U/L (17-59); Blood Urea Nitrogen 25 mg/dl (9-20); Calcium 8.8 mg/dl (8.4-10.2); Carbon Dioxide 29 mmol/L (22.0-30.0); Chloride 102 mmol/L (98-107); Chol/HDL Ratio 7.2 (1-3.5); Cholesterol 216 mg/dl (140-200); Estimated Glomerular Filt Rate 81 ml/min (>60); GFR (African American) 98 ML/MIN (>60); Globulin 2.9 g/dL (1.3-3.2); Glucose 269 mg/dl (74-100); HDL Cholesterol 30 mg/dl (40-60); Potassium 5.2 mmoL/L (3.5-5.1); Sodium 136 mmol/L (136-145); Total Protein,Serum 6.9 g/dl (6.3-8.2); Uric Acid 3.8 mg/dl (3.5-8.5)
[2021-08-26 08:20] LABS: Bilirubin,Total 0.1 mg/dl (0.2-1.3)
[2021-08-26 08:22] LABS: Triglycerides 425 mg/dl (30-150)
[2021-08-26 08:28] LABS: Direct LDL Cholesterol 98.67 mg/dL (100-129)
[2021-08-26 08:43] LABS: Creatinine,Urine Random 102 mg/dL (Not Estab.)
[2021-08-26 08:47] LABS: Thyroid Stimulating Hormone 1.47 uIU/mL (0.465-4.68)
[2021-08-26 08:51] LABS: Microalbumin < 6.000 mg/L (0-16.7)
[2021-08-26 09:23] LABS: Vitamin B12 > 1000 pg/mL (239-931)
[2021-08-27 09:13] LABS: Testosterone,Total 485 ng/dL (264-916)
[2021-08-28 14:11] LABS: Antinuclear Antibodies, IFA Negative (.)
[2021-09-03 20:14] LABS: HLA-B27 Negative (.)
== END ==
PROVIDERS: PCP Nurse Practitioner Family; Visit Provider Nurse Practitioner Family
DX: I10 Essential (primary) hypertension (principal); E10.9 Type 1 diabetes mellitus without complications; R53.82 Chronic fatigue, unspecified; E79.0 Hyperuricemia without signs of inflammatory arthritis and tophaceous disease; M25.50 Pain in unspecified joint; M54.50 Low back pain, unspecified
CPT/HCPCS: 36415; 80053; 80061; 82043; 82570; 82607; 82746; 83036; 84403; 84439; 84443; 84550; 85025; 86038; 86812

== ENCOUNTER → 2021-09-28 19:16 | Outpatient (CLI) | payer OTHER, SELFPAY | PROVIDERS: PCP Nurse Practitioner Family; Visit Provider Nurse Practitioner Family | DX: G47.30 Sleep apnea, unspecified (principal); I10 Essential (primary) hypertension; R40.0 Somnolence; E66.9 Obesity, unspecified | CPT/HCPCS: 95806 ==

== ENCOUNTER → 2021-12-31 10:24 | Outpatient (CLI) | payer OTHER, SELFPAY ==
--- NOTE | 2021-12-31 10:31 | XR_ITS ---
PROCEDURE INFORMATION: Exam: XR Chest Exam date and time: 12/31/2021 10:37 AM Age: 46 years old Clinical indication: Shortness of breath; Patient HX: SOA; Additional info: Difficulty breathing with exertion TECHNIQUE: Imaging protocol: Radiologic exam of the chest. Views: 2 views. COMPARISON: CR XR CHEST 2V 10/07/2020 11:24 AM FINDINGS: Lungs: Unremarkable. No consolidation. Pleural spaces: Unremarkable. No pleural effusion. No pneumothorax. Heart/Mediastinum: Unremarkable. No cardiomegaly. Bones/joints: Unremarkable. IMPRESSION: No acute findings.
--- NOTE | 2021-12-31 10:31 | XR_ITS ---
PROCEDURE INFORMATION: Exam: XR Left Ankle Exam date and time: 12/31/2021 10:37 AM Age: 46 years old Clinical indication: Patient HX: Left ankle pain, no injury TECHNIQUE: Imaging protocol: Radiologic exam of the Left ankle. Views: 3 or more views. COMPARISON: No relevant prior studies available. FINDINGS: Bones/joints: Normal. Soft tissues: Normal. IMPRESSION: No acute findings.
[2021-12-31 11:22] LABS: Microscopic, Urine URINE MICROSCOPIC (MICROSCOPIC)
[2021-12-31 11:23] LABS: Basophils # 0.1 K/mm3 (0-0.2); Basophils % 1.1 % (0.1-2.0); Eosinophils # 0.2 K/mm3 (0.0-0.4); Eosinophils % 2.7 % (0.1-12.0); Hemoglobin 15.9 g/dL (14.1-18.0); Lymphocytes # 2.4 K/mm3 (0.7-4.5); Lymphocytes % 29.4 % (10-50); Mean Corpuscular HGB Conc 31.7 g/dL (31.8-35.4); Mean Corpuscular Volume 94.6 fl (80-94); Mean Platelet Volume 7.7 fl (7.4-10.4); Monocytes # 0.4 K/mm3 (0.1-1.0); Monocytes % 4.6 % (1.7-9.3); Neutrophils % 62.2 % (37.0-80.0); Platelet Count 290 K/mm3 (142-424); Red Blood Count 5.28 M/mm3 (4.60-6.20); Red Cell Distribution Width 13.8 % (11.5-17.5)
[2021-12-31 11:24] LABS: Appearance,Urine CLEAR (Clear); Bilirubin,Urine Negative (Negative); Blood, Urine Negative (Negative); Color,Urine YELLOW (Yellow); Glucose,Urine (UA) 1+ (Negative); Ketones,Urine Negative (Negative); Leukocyte Esterase,Urine Negative (Negative); Nitrate,Urine Negative (Negative); PH,Urine 6.5 (5.0-8.5); Protein,Urine Negative (Negative); Specific Gravity, Urine 1.015 (1.005-1.030); Urobilinogen,Urine 0.2 EU/dl (0.2)
[2021-12-31 11:29] LABS: Chloride 100 mmol/L (98-107); Potassium 4.5 mmoL/L (3.5-5.1); Sodium 137 mmol/L (136-145)
[2021-12-31 11:32] LABS: Alanine Aminotransferase 52 U/L (12-78); Albumin Level 4.4 g/dl (3.5-5.0); Albumin/Globulin Ratio 1.4 (1.1-1.8); Alkaline Phosphatase 134 U/L (38-126); Anion Gap 11.5 mEq/L (5-15); Aspartate Amino Transferase 42 U/L (17-59); Bilirubin,Total 0.8 mg/dl (0.2-1.3); Blood Urea Nitrogen 19 mg/dl (9-20); Calcium 9.4 mg/dl (8.4-10.2); Carbon Dioxide 30 mmol/L (22.0-30.0); Cholesterol 181 mg/dl (140-200); Estimated Glomerular Filt Rate 91 ml/min (>60); GFR (African American) 110 ML/MIN (>60); Globulin 3.1 g/dL (1.3-3.2); Glucose 172 mg/dl (74-100); Total Protein,Serum 7.5 g/dl (6.3-8.2); Triglycerides 138 mg/dl (30-150); VLDL Cholesterol 28 mg/dL (0-40)
[2021-12-31 11:33] LABS: Chol/HDL Ratio 4.5 (1-3.5); HDL Cholesterol 40 mg/dl (40-60)
[2021-12-31 11:38] LABS: Uric Acid 3.1 mg/dl (3.5-8.5)
[2021-12-31 11:39] LABS: Bacteria,Urine Trace /lpf; C-Reactive Protein 9.8 mg/L (0-4); Creatinine,Urine Random 120 mg/dL (Not Estab.)
[2021-12-31 11:42] LABS: Microalbumin < 6.000 mg/L (0-16.7)
[2021-12-31 11:44] LABS: Direct LDL Cholesterol 97.05 mg/dL (100-129)
[2021-12-31 11:47] LABS: Erythrocyte Sedimentation Rate 5 mm/hr (0-15)
[2021-12-31 11:50] LABS: Hemoglobin A1C 6.8 % (4.0-6.0)
[2021-12-31 12:03] LABS: Thyroid Stimulating Hormone 0.76 uIU/mL (0.465-4.68)
[2021-12-31 12:09] LABS: Prostate Specific Ag Screen 0.6 ng/ml (0.0-4.0)
[2021-12-31 12:45] LABS: Vitamin B12 > 1000 pg/mL (239-931)
[2022-01-08 16:54] LABS: Testosterone, Total, LC/MS 670 ng/dL (.)
[2022-01-10 23:25] LABS: 1,25 Dihydroxy Vitamin D 57 pg/mL (.); 1,25-Dihydroxy, Vitamin D-2 <10 pg/mL (.); 1,25-Dihydroxy, Vitamin D-3 49 pg/mL (.)
[2022-01-10 23:27] LABS: Rheumatoid Factor IGA < 7; Rheumatoid Factor IGM < 7
== END ==
LOC: LAB 10:25
PROVIDERS: PCP Family Medicine; Visit Provider Family Medicine
DX: M25.572 Pain in left ankle and joints of left foot (principal); R00.0 Tachycardia, unspecified; I10 Essential (primary) hypertension; M19.90 Unspecified osteoarthritis, unspecified site; E53.8 Deficiency of other specified B group vitamins; E55.9 Vitamin D deficiency, unspecified; E78.5 Hyperlipidemia, unspecified; E11.9 Type 2 diabetes mellitus without complications; M10.9 Gout, unspecified; R94.31 Abnormal electrocardiogram [ECG] [EKG]; Z12.5 Encounter for screening for malignant neoplasm of prostate
CPT/HCPCS: 36415; 71046; 73610; 80053; 80061; 81001; 82043; 82570; 82607; 82652; 82746; 83036; 84403; 84443; 84550; 85025; 85651; 86140; 86431; G0103

== ENCOUNTER → 2022-03-25 10:28 | Outpatient (CLI) | payer OTHER, SELFPAY ==
[2022-03-25 13:58] LABS: Hemoglobin A1C 6.6 % (4.0-6.0)
[2022-03-26 12:34] LABS: Ceruloplasmin 23.7 mg/dL (16.0-31.0)
[2022-03-29 18:09] LABS: Albumin 4.1 g/dL (2.9-4.4); Alpha-1-Globulin 0.2 g/dL (0.0-0.4); Alpha-2-Globulin 0.9 g/dL (0.4-1.0); Gamma Globulin 1.2 g/dL (0.4-1.8); Protein, Total 7.4 g/dL (6.0-8.5)
== END ==
PROVIDERS: PCP Family Medicine; Visit Provider Nurse Practitioner Family
DX: E10.9 Type 1 diabetes mellitus without complications (principal); G47.19 Other hypersomnia; M79.604 Pain in right leg; M79.605 Pain in left leg; M79.641 Pain in right hand; M79.642 Pain in left hand; R25.1 Tremor, unspecified; Z68.37 Body mass index [BMI] 37.0-37.9, adult; Z79.4 Long term (current) use of insulin
CPT/HCPCS: 36415; 82390; 82746; 83036; 84155; 84165; 86334

== ENCOUNTER → 2022-05-11 20:12 | Outpatient (CLI) | payer OTHER, SELFPAY | LOC: SL 20:19 | PROVIDERS: PCP Family Medicine; Visit Provider Nurse Practitioner Family | DX: G47.33 Obstructive sleep apnea (adult) (pediatric) (principal); R09.02 Hypoxemia; R40.0 Somnolence; R06.83 Snoring | CPT/HCPCS: 95810 ==

== ENCOUNTER 2022-05-14 14:18 | Outpatient (RCR) | payer OTHER, SELFPAY | END 2022-05-14 15:30 | disposition home or self-care (01) | LOC: OT 14:18 | PROVIDERS: Visit Provider Nurse Practitioner Family | DX: G56.03 Carpal tunnel syndrome, bilateral upper limbs (principal) | CPT/HCPCS: 97763 ==

== ENCOUNTER → 2022-06-02 18:09 | Outpatient (CLI) | payer OTHER, SELFPAY ==
[2022-06-02 19:04] LABS: Blood Urea Nitrogen 12 mg/dl (9-20); Estimated Glomerular Filt Rate 91 ml/min (>60); GFR (African American) 110 ML/MIN (>60)
== END ==
PROVIDERS: PCP Family Medicine; Visit Provider Internal Medicine
DX: Z01.812 Encounter for preprocedural laboratory examination (principal)
CPT/HCPCS: 82565; 84520

== ENCOUNTER 2022-06-04 07:00 | Outpatient (CLI) | payer OTHER, SELFPAY ==
[2022-06-04 07:34] VITALS: BMI 37.6
[2022-06-04 07:35] VITALS: BP 154/89; PULSE 90; RESP 18; TEMP 36.5; O2SAT 98
[2022-06-04 07:56] LABS: POC Glucose,Bedside 241 (70-110)
[2022-06-04 08:04] LABS: Chloride 101 mmol/L (98-107); Sodium 135 mmol/L (136-145)
[2022-06-04 08:05] LABS: Potassium 4.3 mmoL/L (3.5-5.1)
[2022-06-04 08:07] LABS: Blood Urea Nitrogen 22 mg/dl (9-20); Creatinine Clearance Estimated 180 mL/min (50-200); Estimated Glomerular Filt Rate 91 ml/min (>60); GFR (African American) 110 ML/MIN (>60)
[2022-06-04 08:08] LABS: Anion Gap 10.3 mEq/L (5-15); Calcium 8.7 mg/dl (8.4-10.2); Carbon Dioxide 28 mmol/L (22.0-30.0); Glucose 243 mg/dl (74-100)
--- NOTE | 2022-06-04 08:11 | PC.NURSE ---
per ephraim ALLEN--give the metoprolol.
[2022-06-04 08:15] VITALS: PULSE 81
[2022-06-04 08:39] VITALS: PULSE 90
[2022-06-04 08:45] VITALS: BP 127/68; PULSE 67; RESP 17; O2SAT 100
[2022-06-04 08:54] VITALS: BP 117/68; PULSE 71; RESP 18; O2SAT 98
[2022-06-04 09:00] VITALS: BP 129/73; PULSE 63; RESP 16; O2SAT 100
== END 2022-06-04 09:00 | disposition home or self-care (01) ==
LOC: RAD 07:01
PROVIDERS: PCP Family Medicine; Visit Provider Nurse Practitioner Family
DX: R06.09 Other forms of dyspnea (principal); R07.89 Other chest pain; E10.9 Type 1 diabetes mellitus without complications; E78.5 Hyperlipidemia, unspecified; I10 Essential (primary) hypertension; R94.31 Abnormal electrocardiogram [ECG] [EKG]; Z79.4 Long term (current) use of insulin
CPT/HCPCS: 75574; 80048; 82962; Q9967

== ENCOUNTER → 2022-06-18 09:57 | Outpatient (CLI) | payer OTHER, SELFPAY ==
--- NOTE | 2022-06-18 09:57 | FL_ITS ---
FINAL REPORT CLINICAL HISTORY: .CHEST PAIN - SENSATION OF SOMETHING STUCK IN THROAT ALL THE TIME. FINDINGS: BARIUM SWALLOW HISTORY: Chest pain, sensation of something stuck in throat. TECHNIQUE: The patient ingested barium contrast. Spot and overhead films were performed. A total of 27 images were saved. FINDINGS: The esophagus is unremarkable. There is no gastroesophageal reflux demonstrated. No mucosal defects are seen. Motility appears normal. No changes of esophagitis are evident. 13 mm barium tablet passes easily through the esoophagus and into the stomach. FLUOROSCOPY TIME: 44 seconds. IMPRESSION: Unremarkable esophagram. Reviewed, Interpreted and Dictated by Arabella Echols MD Transcribed by Chiqui Guerrero PA-C Authenticated and [facility]
== END ==
PROVIDERS: PCP Nurse Practitioner Family; Visit Provider Physician Assistant
DX: R06.09 Other forms of dyspnea (principal); R07.89 Other chest pain; E10.9 Type 1 diabetes mellitus without complications; E78.5 Hyperlipidemia, unspecified; I10 Essential (primary) hypertension; R94.31 Abnormal electrocardiogram [ECG] [EKG]
CPT/HCPCS: 74220

== ENCOUNTER → 2022-07-24 08:37 | Outpatient (CLI) | payer OTHER, SELFPAY ==
[2022-07-24 09:04] LABS: Basophils # 0.1 K/mm3 (0-0.2); Basophils % 0.7 % (0.1-2.0); Eosinophils # 0.2 K/mm3 (0.0-0.4); Eosinophils % 1.9 % (0.1-12.0); Hematocrit 49.4 % (42.0-52.0); Hemoglobin 15.8 g/dL (14.1-18.0); Lymphocytes # 2.5 K/mm3 (0.7-4.5); Lymphocytes % 27.6 % (10-50); Mean Corpuscular HGB Conc 31.9 g/dL (31.8-35.4); Mean Corpuscular Hemoglobin 29.4 pg (27.0-31.2); Mean Corpuscular Volume 92.1 fl (80-94); Mean Platelet Volume 7.4 fl (7.4-10.4); Monocytes # 0.5 K/mm3 (0.1-1.0); Monocytes % 5.6 % (1.7-9.3); Neutrophils # 5.9 K/mm3 (1.8-7.8); Neutrophils % 64.2 % (37.0-80.0); Platelet Count 297 K/mm3 (142-424); Red Blood Count 5.36 M/mm3 (4.60-6.20); Red Cell Distribution Width 13.4 % (11.5-17.5); White Blood Count 9.2 K/mm3 (4.8-10.8)
[2022-07-24 09:35] LABS: Hemoglobin A1C 6.3 % (4.0-6.0)
[2022-07-24 09:42] LABS: Alanine Aminotransferase 29 U/L (12-78); Albumin Level 4.1 g/dl (3.5-5.0); Albumin/Globulin Ratio 1.4 (1.1-1.8); Alkaline Phosphatase 139 U/L (38-126); Anion Gap 13.4 mEq/L (5-15); Aspartate Amino Transferase 34 U/L (17-59); Bilirubin,Total 0.2 mg/dl (0.2-1.3); Blood Urea Nitrogen 18 mg/dl (9-20); Calcium 8.9 mg/dl (8.4-10.2); Carbon Dioxide 30 mmol/L (22.0-30.0); Chloride 103 mmol/L (98-107); Chol/HDL Ratio 5.2 (1-3.5); Cholesterol 171 mg/dl (140-200); Estimated Glomerular Filt Rate 91 ml/min (>60); GFR (African American) 110 ML/MIN (>60); Glucose 70 mg/dl (74-100); HDL Cholesterol 33 mg/dl (40-60); Potassium 4.4 mmoL/L (3.5-5.1); Sodium 142 mmol/L (136-145); Total Protein,Serum 7.1 g/dl (6.3-8.2); Triglycerides 334 mg/dl (30-150); VLDL Cholesterol 67 mg/dL (0-40)
[2022-07-24 09:53] LABS: Direct LDL Cholesterol 85.72 mg/dL (100-129)
[2022-07-24 09:58] LABS: 25-OH Vitamin D, Total 62.4 ng/mL (30-100)
== END ==
PROVIDERS: PCP Nurse Practitioner Family; Visit Provider Family Medicine
DX: E11.9 Type 2 diabetes mellitus without complications (principal); E78.5 Hyperlipidemia, unspecified; E55.9 Vitamin D deficiency, unspecified; Z79.4 Long term (current) use of insulin
CPT/HCPCS: 36415; 80053; 80061; 82306; 83036; 85025

== ENCOUNTER 2022-10-20 07:43 | Day surgery (SDC) | payer OTHER, SELFPAY ==
[2022-09-22 13:04] VITALS: BMI 38.7
[2022-10-20 08:03] VITALS: BP 137/78; PULSE 85; RESP 18; O2SAT 95
--- NOTE | 2022-10-20 08:53 | P.PNANES_ITS ---
[facility] Disclaimer: The information contained in this section may have been updated after the patient was seen, as this information can be updated by other users. Medical History Abnormal electrocardiography Arthritis DDD (degenerative disc disease) Depression Dyspnea on exertion Head injury HTN (hypertension) Hyperlipidemia ILD (interstitial lung disease) Knee swelling Major depressive disorder Removal of gregorio Restrictive lung disease Scalp laceration Sinus pressure Sinus tachycardia Vitamin B12 deficiency Vitamin D deficiency Surgical History History of vasectomy Family History (Updated 09/22/22 @ 12:57 by Amber Rubio RN) Other Family history of cancer Family history of diabetes mellitus type I Prostate cancer Social History (Updated 09/22/22 @ 12:57 by Amber Rubio RN) Smoking Status: Never smoker alcohol intake: never substance use type: denies use current occupational status: employed Travel in the last 8 weeks: None household members: family housing: house marital status: number of children: 2 education level: high school service: No mcfp: No current occupational exposures/hazards: Yes caffeine: Yes special reed needs: No agree to transfusion: No do you feel safe at home: Yes victim of physical abuse: No victim of emotional abuse: No victim of sexual abuse: No would you like helpful sources: No [facility] Anesthesia Checklist Patient Identification Patient Identification: Verbal (Name & ) Structural Data Admitted From: Home Planned Operative Procedure/s: egd/colonoscopy Consent for Planned Operative Procedure(s) Verified: Yes Additional verifications Anesthesia Reactions: No Hx Blood Transfusions: No Blood Transfusion Reaction: No Airway Assessment Mallampati Score:: Class II C-Spine Mobility Assessed: Yes TMJ Mobility Assessed: Yes Dentition: Good Dentition Neurological Assessment Level of Consciousness: Awake, Alert and Appropriate Anesthesia Plan Anesthesia Risk discussed: Yes Anesthesia Plan: Verified ASA Class: II Anesthesia Type: MAC
[2022-10-20 09:03] VITALS: O2SAT 97
--- NOTE | 2022-10-20 09:25 | HMH.SCOPE ---
Procedure: Date: 10/20/22 Patient Date of :: 1975 Procedure Performed:: Colonoscopy Indications:: The patient is a 47 year old who presents for screening colonoscopy Performing Provider:: Louis Belcher MD Referring Provider:: Vickie Talley APRN Sedation:: See RN records Procedure:: After placing the patient in the left lateral decubitus position, the colonoscopy was gently inserted into the rectum and under direct visualization advanced to the cecum which was identified by transillumination in the right lower quadrant, identification of the ileocecal valve, appendiceal orifice, and cecal strap. Color, texture, mucosa, and anatomy of the colon were carefully examined with the scope. Preparation was excellent. Findings:: Anal canal: normal Rectum: hemorrhoids Sigmoid colon: normal without polyps or inflammatory changes Descending colon: normal without polyps or inflammatory changes Splenic flexure: normal Transverse colon: normal without polyps or inflammatory changes Hepatic flexure: normal Ascending colon: normal without polyps or inflammatory changes Cecum: normal Terminal ileum: not visualized Impression: Normal appearing colon Recommendations:: Repeat colonoscopy in 10 years for screening or sooner if clinically indicated Complications:: none Estimated blood obtained (mL): 0 Colonoscopy Component Colonoscopy Component Was a colonoscopy performed during today's procedure?: Yes Recommended follow up colonoscopy of at least 10 years?: Yes
[2022-10-20 09:26] VITALS: BP 109/73; PULSE 74; RESP 18; TEMP 36.1; O2SAT 94
--- NOTE | 2022-10-20 09:28 | HMH.SCOPE ---
Procedure: Date: 10/20/22 Patient Date of :: 1975 Procedure Performed:: EGD Indications:: The patient is a 47 year old who presents for EGD evaluation of GERD, dysphagia to liquids and pills, globus sensation. The patient has an unremarkable barium esophagram. There has been some clinical improvement in symptoms with PPI use Performing Provider:: Louis Belcher MD Referring Provider:: Emani Driscoll APRN Sedation:: See RN records Procedure:: The gastroscope was gently passed through the incisoral orifice into the oral cavity and under direct visualization the esophagus was intubated. The endoscope was passed down the esophagus, through the stomach, and into the duodenum. Color, texture, mucosa, and anatomy of the esophagus, stomach, and duodenum were carefully examined with the scope. Findings:: Oropharynx: normal Esophagus: normal. Biopsies obtained. Empiric dilatation performed with 54F bougie dilatation EG Junction: intact at 40 cm Cardia: normal Fundus: normal Body: normal. Biopsy obtained Antrum: gastritis. Biopsy obtained Duodenal bulb: normal Duodenum (second and third portion): normal Impression: Mild distal gastritis Recommendations:: Await pathology results Complications:: None Estimated blood obtained (mL): 0 Colonoscopy Component Colonoscopy Component Was a colonoscopy performed during today's procedure?: No
[2022-10-20 09:36] VITALS: BP 103/64; PULSE 71; RESP 17; O2SAT 93
[2022-10-20 09:46] VITALS: BP 111/65; PULSE 70; RESP 18; O2SAT 95
[2022-10-20 09:56] VITALS: BP 124/70; PULSE 71; RESP 17; O2SAT 96
[2022-10-22 06:51] LABS: POC Glucose,Bedside 132 (70-110)
== END 2022-10-20 10:01 | disposition home or self-care (01) ==
PROVIDERS: PCP Nurse Practitioner Family; Visit Provider Internal Medicine
PROC: 0DJ08ZZ Inspection of Upper Intestinal Tract, Via Natural or Artificial Opening Endoscopic (ICD-10-PCS; CPT 43235; principal; 2022-10-20 09:00)
DX: Z12.11 Encounter for screening for malignant neoplasm of colon (principal); R13.10 Dysphagia, unspecified; K21.9 Gastro-esophageal reflux disease without esophagitis; K31.9 Disease of stomach and duodenum, unspecified; K64.8 Other hemorrhoids; E11.9 Type 2 diabetes mellitus without complications
CPT/HCPCS: 43239; 43248; 45378; 82962; J2704

== ENCOUNTER → 2022-11-06 10:04 | Outpatient (CLI) | payer OTHER, SELFPAY ==
[2022-11-06 10:47] LABS: Basophils # 0.1 K/mm3 (0-0.2); Basophils % 0.8 % (0.1-2.0); Eosinophils # 0.1 K/mm3 (0.0-0.4); Eosinophils % 2.3 % (0.1-12.0); Hematocrit 49.9 % (42.0-52.0); Hemoglobin 15.7 g/dL (14.1-18.0); Lymphocytes # 2.1 K/mm3 (0.7-4.5); Lymphocytes % 32.1 % (10-50); Mean Corpuscular HGB Conc 31.3 g/dL (31.8-35.4); Mean Corpuscular Hemoglobin 28.9 pg (27.0-31.2); Mean Corpuscular Volume 92.4 fl (80-94); Mean Platelet Volume 8.1 fl (7.4-10.4); Monocytes # 0.4 K/mm3 (0.1-1.0); Monocytes % 5.5 % (1.7-9.3); Neutrophils # 3.8 K/mm3 (1.8-7.8); Neutrophils % 59.3 % (37.0-80.0); Platelet Count 302 K/mm3 (142-424); Red Blood Count 5.41 M/mm3 (4.60-6.20); Red Cell Distribution Width 14.2 % (11.5-17.5); White Blood Count 6.4 K/mm3 (4.8-10.8)
[2022-11-06 10:55] LABS: Hemoglobin A1C 6.7 % (4.0-6.0)
[2022-11-06 11:19] LABS: Free T4 (Free Thyroxine) 0.93 ng/dl (0.78-2.19)
[2022-11-06 12:02] LABS: Thyroid Stimulating Hormone 0.62 uIU/mL (0.465-4.68)
[2022-11-06 12:38] LABS: Folate > 20.00 ng/mL; Vitamin B12 > 1000 pg/mL (239-931)
[2022-11-08 08:52] LABS: Chol/HDL Ratio 4.3 (1-3.5); Cholesterol 165 mg/dl (140-200); HDL Cholesterol 38 mg/dl (40-60); Triglycerides 76 mg/dl (30-150); Uric Acid 3.4 mg/dl (3.5-8.5); VLDL Cholesterol 15 mg/dL (0-40)
[2022-11-08 09:03] LABS: Direct LDL Cholesterol 97.73 mg/dL (100-129)
[2022-11-08 10:26] LABS: Vitamin B12 > 1000 pg/mL (239-931)
[2022-11-08 10:27] LABS: Hemoglobin A1C 6.7 % (4.0-6.0)
[2022-11-13 19:12] LABS: Free Testosterone (Direct) 6.8 pg/mL (6.8-21.5); Testosterone, Total, LC/MS 568.3 ng/dL (264.0-916.0)
[2022-11-14 11:25] LABS: Antinuclear Antibodies (ANA) Negative
[2022-11-16 00:05] LABS: 1,25 Dihydroxy Vitamin D 61 pg/mL (.); 1,25-Dihydroxy, Vitamin D-2 <10 pg/mL (.); 1,25-Dihydroxy, Vitamin D-3 55 pg/mL (.)
== END ==
PROVIDERS: Nurse Practitioner Family; PCP Nurse Practitioner Family; Visit Provider Nurse Practitioner Family
DX: E10.9 Type 1 diabetes mellitus without complications (principal); R53.83 Other fatigue; M10.9 Gout, unspecified; E78.5 Hyperlipidemia, unspecified; E53.8 Deficiency of other specified B group vitamins; M19.90 Unspecified osteoarthritis, unspecified site; E66.9 Obesity, unspecified; Z68.38 Body mass index [BMI] 38.0-38.9, adult; Z79.4 Long term (current) use of insulin
CPT/HCPCS: 36415; 80061; 82607; 82652; 82746; 83036; 84439; 84443; 84550; 85025; 86038; 86140; 86225; 86235

== ENCOUNTER 2023-01-07 14:49 | Emergency (ER) | payer OTHER, SELFPAY ==
--- NOTE | 2023-01-07 14:54 | XR_ITS ---
FINAL REPORT CLINICAL HISTORY: FALL COMPARISON: 12/31/2021 FINDINGS: Left ankle Three views were obtained. There is a vertical fracture of the posterior malleolus with intra-articular extension. This is seen on the lateral view only. There is soft tissue swelling, more evident than previous. IMPRESSION: Fracture as above. Reviewed, Interpreted and Dictated by Cl Corley MD Transcribed by Mitzi Bah Authenticated and [facility]
[2023-01-07 16:00] VITALS: BP 138/98; PULSE 89; RESP 18; TEMP 37; O2SAT 100; BMI 40.1
--- NOTE | 2023-01-07 16:10 | EXP.UTC ---
Discharge Plan Disposition Patient Disposition: Home, Self-Care Condition: Good Prescriptions Prescriptions: New ibuprofen [IBU] 800 mg tablet 800 mg PO Q8HP PRN (Reason: Moderate Pain) Qty: 30 0RF No Action (DME) Dexcom G7 Sensor Device See Rx Instructions .ROUTE .COMPLEX Qty: 1 12RF Rx Instructions: CHANGE EVERY 10 DAYS armodafinil [Nuvigil] 150 mg tablet 150 mg PO AM Qty: 30 1RF sour massey extract [Tart Massey Extract] 1,000 mg capsule 1,200 mg PO DAILY fluticasone propionate [Flonase Allergy Relief] 50 mcg/actuation spray,suspension 1 spray INTRANASAL QDAY PRN (Reason: allergies) Rx Instructions: administer into each nostril albuterol sulfate 90 mcg/actuation HFA aerosol inhaler 2 inh inhalation Q4-6H PRN (Reason: shortness of breath or wheezing) Qty: 8.5 1RF diclofenac sodium 75 mg tablet,delayed release (DR/EC) 75 mg PO BID PRN (Reason: pain) Qty: 60 0RF losartan 50 mg tablet 50 mg PO DAILY fluoxetine [Prozac] 40 mg capsule 40 mg PO DAILY cyanocobalamin (vitamin B-12) [Vitamin B-12] 2,500 mcg tablet, sublingual 2,500 mcg sublingual DAILY (DME) blood-glucose meter [Accu-Chek Sherrill Plus Meter] Mis See Rx Instructions .Route Rx Instructions: As directed cetirizine [Zyrtec] 10 mg tablet 10 mg PO QDAY (DME) Accu-Chek Sherrill Plus test strp Strip See Rx Instructions .Route Rx Instructions: As directed aspirin [Adult Low Dose Aspirin] 81 mg tablet,delayed release (DR/EC) 81 mg PO DAILY (DME) lancets [Accu-Chek Fastclix Lancet Drum] Misc See Rx Instructions .Route Rx Instructions: As directed simvastatin 5 mg tablet 5 mg PO DAILY pantoprazole 40 mg tablet,delayed release (DR/EC) 40 mg PO DAILY allopurinol 300 mg tablet 300 mg PO DAILY Novolin R FlexPen 100 unit/mL (3 mL) insulin pen 70 unit SQ QID omega-3 acid ethyl esters [Lovaza] 1 gram capsule 2 cap PO DAILY Levemir FlexTouch U100 Insulin 100 unit/mL (3 mL) insulin pen 100 unit SQ HS fenofibrate nanocrystallized 145 mg tablet 145 mg PO DAILY cholecalciferol (vitamin D3) 50 mcg (2,000 unit) capsule 2,000 unit PO DAILY (DME) Dexcom G7 Dining Car [employer] Misc See Rx Instructions .ROUTE .COMPLEX Rx Instructions: USE DIRECTED Referrals Follow up/Referrals: Blake Guevara DO [Staff Physician] - See instructions Vickie Talley APRN [Primary Care Provider] - See instructions Activity Restrictions/Add. Instructions Additional Instructions/Restrictions: Rest the extremity, apply ice for 15 minutes as tolerated three or four times per day, Elevate the extremity as tolerated while you are resting. Take ibuprofen for pain. I sent in a prescription to your pharmacy. Follow up with Dr. Guevara (orthopedics). I put in a referral but you need to call his office and schedule an appointment. His office phone number will be on this paperwork. Follow up with your regular doctor. 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 When he slipped he twisted his left ankle and foot outwards. He is now having left lower leg pain and left ankle pain and swelling. Trying to walk or bear weight on the affected extremity makes his pain worse. He denies any other injury. Related Data Home Medications Medication Instructions Recorded Confirmed sour massey extract 1,000 mg 1,200 mg PO DAILY . 08/24/17 12/13/22 capsule (Tart Massey Extract) fluticasone propio
[2023-01-07 17:45] VITALS: BP 138/98; PULSE 89; RESP 18; TEMP 37; O2SAT 100
== END 2023-01-07 17:45 | disposition home or self-care (01) ==
PROVIDERS: Emergency Provider Nurse Practitioner Family; PCP Nurse Practitioner Family
DX: S82.302A Unspecified fracture of lower end of left tibia, initial encounter for closed fracture (principal); I10 Essential (primary) hypertension; E78.5 Hyperlipidemia, unspecified; J84.9 Interstitial pulmonary disease, unspecified; W01.198A Fall on same level from slipping, tripping and stumbling with subsequent striking against other object, initial encounter
CPT/HCPCS: 73610; 99204; 99212; G0463

== ENCOUNTER → 2023-01-13 13:43 | Outpatient (CLI) | payer OTHER, SELFPAY ==
--- NOTE | 2023-01-13 13:58 | CT_ITS ---
FINAL REPORT TECHNIQUE: Thin section axial CT images with coronal and sagittal reformats were performed. This study was performed with techniques to keep radiation doses as low as reasonably achievable (ALARA). Individualized dose reduction techniques using automated exposure control or adjustment of mA and/or kV according to the patient''s size were employed. CLINICAL HISTORY: lt tib fracture FINDINGS: There is a nondisplaced fracture of the distal tibia oriented in the coronal plane. Fracture line extends to the tibiotalar joint. No other fracture is identified. There is circumferential edema at the ankle. IMPRESSION: Nondisplaced fracture of the distal tibia. Reviewed, Interpreted and Dictated by Dave Zavala III, MD Transcribed by Mitzi Bah Authenticated and [facility]
== END ==
PROVIDERS: PCP Nurse Practitioner Family; Visit Provider Orthopaedic Surgery
DX: S82.302A Unspecified fracture of lower end of left tibia, initial encounter for closed fracture (principal)
CPT/HCPCS: 73700

== ENCOUNTER 2023-01-19 07:32 | Day surgery (SDC) | payer OTHER, SELFPAY ==
[2023-01-18 10:35] VITALS: BMI 39.0
[2023-01-19] VITALS (7 sets, daily range): BP systolic 119–159; BP diastolic 64–99; PULSE 79–95; RESP 12–18; TEMP 36.2–36.5; O2SAT 94–97
--- NOTE | 2023-01-19 07:49 | XR_ITS ---
FINAL REPORT CLINICAL HISTORY: HTN COMPARISON: 12/31/2021 FINDINGS: TWO-VIEW CHEST The heart size is normal. The mediastinum is normal. The lungs are clear. There is no pneumothorax. IMPRESSION: No acute cardiopulmonary process. Reviewed, Interpreted and Dictated by Cl Corley MD Transcribed by Mitzi Bah Authenticated and [facility]
[2023-01-19 08:21] LABS: Basophils # 0.1 K/mm3 (0-0.2); Basophils % 0.9 % (0.1-2.0); Chloride 106 mmol/L (98-107); Eosinophils # 0.2 K/mm3 (0.0-0.4); Eosinophils % 2.2 % (0.1-12.0); Hematocrit 48.1 % (42.0-52.0); Hemoglobin 15.8 g/dL (14.1-18.0); Lymphocytes # 2.6 K/mm3 (0.7-4.5); Lymphocytes % 30.5 % (10-50); Mean Corpuscular HGB Conc 32.8 g/dL (31.8-35.4); Mean Corpuscular Hemoglobin 30.9 pg (27.0-31.2); Mean Corpuscular Volume 94.3 fl (80-94); Mean Platelet Volume 7.9 fl (7.4-10.4); Monocytes # 0.5 K/mm3 (0.1-1.0); Monocytes % 6.3 % (1.7-9.3); Platelet Count 347 K/mm3 (142-424); Sodium 142 mmol/L (136-145); White Blood Count 8.4 K/mm3 (4.8-10.8)
--- NOTE | 2023-01-19 08:22 | ECG_ITS ---
APPROVED REPORT Exam: Resting ECG HR:86 bpm ECG Measurements Heart Rate 86 AXES NH 174 P 43 QRSd 93 QRS 46 QT 350 T 46 QTc 393 Conclusion SINUS RHYTHM NORMAL ECG UNCONFIRMED REPORT Electronically signed by : Izaiah Chaparro MD 01/19/2023 17:32:58
[2023-01-19 08:24] LABS: Alanine Aminotransferase 50 U/L (12-78); Albumin Level 4.6 g/dl (3.5-5.0); Albumin/Globulin Ratio 1.4 (1.1-1.8); Alkaline Phosphatase 119 U/L (38-126); Aspartate Amino Transferase 43 U/L (17-59); Bilirubin,Total 0.5 mg/dl (0.2-1.3); Blood Urea Nitrogen 20 mg/dl (9-20); Calcium 9.2 mg/dl (8.4-10.2); Carbon Dioxide 30 mmol/L (22.0-30.0); Creatinine Clearance Estimated 166 mL/min (50-200); Estimated Glomerular Filt Rate 80 ml/min (>60); GFR (African American) 97 ML/MIN (>60); Globulin 3.4 g/dL (1.3-3.2); Glucose 69 mg/dl (74-100)
[2023-01-19] MEDS: LACTATED RINGERS 1000ML 1,000 ML 25 ML IV (09:01)
[2023-01-19 09:06] LABS: POC Glucose,Bedside 66 (70-110)
[2023-01-19] MEDS: DEXTROSE 5%-LACTATED RINGERS 1,000 ML 25 ML IV (09:54)
--- NOTE | 2023-01-19 10:11 | SUR.PREOP ---
0905- Contlucinda Adams updating on FSBS= 66. Ordered D5LR to bolus 500cc.
[2023-01-19] MEDS: BUPIVACAINE 0.5% 30ML VIAL 150 MG (10:42)
[2023-01-19] MEDS: CLINDAMYCIN PHOSPHATE 900 MG in 0.9 % SODIUM CHLORIDE 50 ML 50 MG IV (10:42)
[2023-01-19] MEDS: LIDOCAINE 1% 30ML PF VIAL 30 ML (10:43)
--- NOTE | 2023-01-19 11:03 | EXP.ANES.CKL ---
[facility] Disclaimer: The information contained in this section may have been updated after the patient was seen, as this information can be updated by other users. Medical History Abnormal electrocardiography Arthritis BMI 37.0-37.9, adult DDD (degenerative disc disease) Depression Dyspnea on exertion Head injury HTN (hypertension) Hyperlipidemia ILD (interstitial lung disease) Knee swelling Major depressive disorder Removal of gregorio Restrictive lung disease Scalp laceration Sinus pressure Sinus tachycardia Vitamin B12 deficiency Vitamin D deficiency Surgical History History of colonoscopy History of vasectomy Family History Other Family history of cancer Family history of diabetes mellitus type I Prostate cancer Social History Smoking Status: Never smoker alcohol intake: never substance use type: denies use current occupational status: employed Travel in the last 8 weeks: None household members: family housing: house marital status: number of children: 2 education level: high school service: No residential: No current occupational exposures/hazards: Yes caffeine: Yes special reed needs: No agree to transfusion: No do you feel safe at home: Yes victim of physical abuse: No victim of emotional abuse: No victim of sexual abuse: No would you like helpful sources: No [facility] Anesthesia Checklist Patient Identification Patient Identification: Verbal (Name & ) Structural Data Admitted From: Home Planned Operative Procedure/s: orif l tibia Consent for Planned Operative Procedure(s) Verified: Yes NPO Status Verified Time NPO: 00:00 Additional verifications Anesthesia Reactions: No Hx Blood Transfusions: No Blood Transfusion Reaction: No Airway Assessment Mallampati Score:: Class I C-Spine Mobility Assessed: Yes TMJ Mobility Assessed: Yes Dentition: Good Dentition Neurological Assessment Level of Consciousness: Awake, Alert and Appropriate Anesthesia Plan Anesthesia Risk discussed: Yes Anesthesia Plan: Verified ASA Class: III Anesthesia Type: General
--- NOTE | 2023-01-19 11:17 | XR_ITS ---
FINAL REPORT CLINICAL HISTORY: ORIF IN OR, 0.7mi. 1.67mgy FINDINGS: FLUOROSCOPY LESS THAN 1 HOUR HISTORY: Fluoroscopy guidance. FINDINGS: Fluoroscopic guidance was provided for left ankle ORIF. Three spot films were obtained. A total of 0.7 minutes of fluoroscopy time were used. DAP: 1.67 mGy IMPRESSION: As above. Reviewed, Interpreted and Dictated by Cl Corley MD Transcribed by America Valdez Authenticated and [facility]
--- NOTE | 2023-01-19 11:27 | P.PNANES_ITS ---
[facility] Anesthesia Record Part I Anesthesia Record I Intake, IV Amount: 1,400 Hydration: Adequate Estimated blood loss (mL): 0 Urine output (mL): 0 Blood Pressure: 158/95 SaO2: 95 Pulse Rate: 81 Airway Patency: Patent Respiratory Rate: 12 Temperature: 97.2 F Patient is:: Drowsy and Stable Stable to PACU at:: 11:27
--- NOTE | 2023-01-19 11:31 | P.OP_ITS ---
Date of procedure: 01/19/23 Pre-op Diagnosis:: Left distal tibia fracture Post-op Diagnosis:: Same Procedure performed:: Open reduction internal fixation left distal tibia fracture Surgeon:: Blake Guevara DO MANAGEMENT ACCOUNTS MANAGER:: Ronald Adams Anesthesia: GETA Estimated blood loss (mL): 5 Clinical Note:: Implants 4.0 mm Synthes cannulated screws Operative findings:: See dictation Operative note:: Patient was identified preoperatively. Left leg marked with yes my initials. Transported operative suite placed upon the operating bed. General anesthesia was administered airway secured. Left lower extremity prepped and draped normal sterile fashion. Once prepped and draped final operative timeout performed to identify proper patient procedure and extremity. Everyone involved the case agreed. There is no counter indications beginning. Did receive preoperative antibiotics. C arm was brought into identify the nature of the fracture this is a large posterior malleoli are type fracture that was nondisplaced of the distal tibia. I evaluated this area move the ankle and confirm the nondisplaced nature of this distal tibia fracture. Esmarch was used to exsanguinate the extremity pneumatic tourniquet inflated to 300 mmHg. Skin knife was used to make incisions anteriorly on the tibia small incisions were taken down to the bone retractors were placed and guidewires were selected from 4.0 mm cannulated screw set. The guidewire was then placed anterior to posterior under direct visualization on the C arm. Additional wire was placed and a third wire was placed in a triangle configuration of the distal tibia this gave good spread within the fracture also maintain reduction with ankle range of motion. These were overdrilled and the 4.0 mm cannulated screws were placed with appropriate depth C arm was used for confirmation 3 screws were placed they gave good fixation of this nondisplaced distal tibia fracture posterior malleolus type injury. Irrigation of the wound performed x-rays taken AP and lateral views. Skin closed with nylon stitch sterile dressing placed with a posterior splint patient waken anesthesia taken recovery in stable condition. Condition: stable Disposition: PACU Complications:: None apparent
[2023-01-19 11:37] LABS: POC Glucose,Bedside 181 (70-110)
--- NOTE | 2023-01-20 07:18 | EXP.ANES.II ---
[facility] Anesthesia Record Part II Anesthesia Record Part II Discharge Time: 11:57 Destination: Surgical Day Care (OP Surgery) PACU nurse assessment reviewed?: Yes Patient Condition:: Good Anesthesia Complications:: None Swallowing reflex intact?: Yes Airway Patency: Patent Cyanosis?: No Blood Pressure: 132/79 SaO2: 96 Respiratory Rate: 14 Pulse Rate: 80 Temperature: 97.5 F Mental Status: Alert & Oriented Pain level:: 0 Nausea and/or vomitting:: None Intake, IV Amount: 0 Hydration: Adequate
[2023-01-20 07:20] VITALS: BP 132/79; PULSE 80; RESP 14; TEMP 36.4; O2SAT 96
== END 2023-01-19 12:27 | disposition home or self-care (01) ==
PROVIDERS: PCP Nurse Practitioner Family; Visit Provider Orthopaedic Surgery
PROC: (CPT 27827; principal; 2023-01-19 09:45)
DX: S82.55XA Nondisplaced fracture of medial malleolus of left tibia, initial encounter for closed fracture (principal); W01.0XXA Fall on same level from slipping, tripping and stumbling without subsequent striking against object, initial encounter; Y92.73 Farm field as the place of occurrence of the external cause; E11.9 Type 2 diabetes mellitus without complications; Z79.4 Long term (current) use of insulin; I10 Essential (primary) hypertension; E55.9 Vitamin D deficiency, unspecified; J84.9 Interstitial pulmonary disease, unspecified; E53.8 Deficiency of other specified B group vitamins; Z79.899 Other long term (current) drug therapy
CPT/HCPCS: 27827; 36415; 71046; 73600; 76000; 80053; 82962; 85025; 93005; 96374; C1713; J2405

== ENCOUNTER → 2023-01-27 08:50 | Outpatient (CLI) | payer OTHER, SELFPAY ==
--- NOTE | 2023-01-27 08:53 | XR_ITS ---
FINAL REPORT CLINICAL HISTORY: Left ankle post op COMPARISON: 01/07/2023 FINDINGS: Left ankle Three views were obtained. There has been interval placement of 3 orthopedic screws in the anterior distal tibia. Screws secure a vertical posterior malleolar fracture fragment. Fragments are near anatomic alignment. The mortise is intact. There is soft tissue swelling about the ankle. IMPRESSION: Postsurgical changes as above. Reviewed, Interpreted and Dictated by Cl Corley MD Transcribed by Mitzi Bah Authenticated and . [facility]
== END ==
PROVIDERS: PCP Nurse Practitioner Family; Visit Provider Orthopaedic Surgery
DX: S99.912D Unspecified injury of left ankle, subsequent encounter (principal); Y99.9 Unspecified external cause status
CPT/HCPCS: 73610

== ENCOUNTER 2023-01-27 10:21 | Outpatient (RCR) | payer OTHER, SELFPAY | END 2023-01-27 12:00 | disposition home or self-care (01) | LOC: PT 10:21 | PROVIDERS: Visit Provider Orthopaedic Surgery | DX: S82.302A Unspecified fracture of lower end of left tibia, initial encounter for closed fracture (principal); M25.572 Pain in left ankle and joints of left foot | CPT/HCPCS: 97760 ==

== ENCOUNTER 2023-03-03 08:35 | Outpatient (CLI) | payer OTHER, SELFPAY ==
--- NOTE | 2023-03-03 08:44 | XR_ITS ---
FINAL REPORT CLINICAL HISTORY: left tib fib fx COMPARISON: Ankle radiograph 01/27/2023 FINDINGS: 2 views of the left tibia/fibula were obtained. Orthopedic hardware is present securing a vertical fracture through the distal tibia. Hardware appears intact. Overlying cast has been removed. Bridging callus formation is noted. There is no acute fracture or dislocation. The joint spaces are intact. There is no soft tissue abnormality. IMPRESSION: Tibial fracture with callus formation and intact orthopedic hardware. Reviewed, Interpreted and Dictated by Cl Corley MD Transcribed by America Valdez Authenticated and [facility]
== END 2023-03-03 23:59 ==
PROVIDERS: PCP Nurse Practitioner Family; Visit Provider Orthopaedic Surgery
DX: S82.302D Unspecified fracture of lower end of left tibia, subsequent encounter for closed fracture with routine healing (principal)
CPT/HCPCS: 73590

== ENCOUNTER 2023-04-07 07:51 | Outpatient (CLI) | payer OTHER, SELFPAY ==
--- NOTE | 2023-04-07 08:01 | XR_ITS ---
FINAL REPORT CLINICAL HISTORY: lt ankle pain FINDINGS: AP, oblique, and lateral views of the left ankle were obtained. There is no prior exam for comparison. There is no fracture or dislocation. There are postoperative changes in the distal tibia. There is presumed old fracture deformity of the medial distal tibia. Mild soft tissue edema is identified. IMPRESSION: Edema without acute osseous abnormality. Reviewed, Interpreted and Dictated by Cee Kee MD Transcribed by Mitzi Bah Authenticated and [facility]
[2023-04-07 08:28] LABS: Hemoglobin A1C 6.5 % (4.0-6.0)
[2023-04-07 09:04] LABS: Alanine Aminotransferase 52 U/L (12-78); Albumin Level 3.9 g/dl (3.5-5.0); Albumin/Globulin Ratio 1.4 (1.1-1.8); Alkaline Phosphatase 137 U/L (38-126); Anion Gap 7.6 mEq/L (5-15); Aspartate Amino Transferase 43 U/L (17-59); Bilirubin,Total 0.7 mg/dl (0.2-1.3); Blood Urea Nitrogen 15 mg/dl (9-20); Calcium 8.9 mg/dl (8.4-10.2); Carbon Dioxide 32 mmol/L (22.0-30.0); Chloride 107 mmol/L (98-107); Chol/HDL Ratio 3.9 (1-3.5); Cholesterol 158 mg/dl (140-200); Estimated Glomerular Filt Rate 104 ml/min (>60); GFR (African American) 126 ML/MIN (>60); Globulin 2.7 g/dL (1.3-3.2); Glucose 93 mg/dl (74-100); HDL Cholesterol 41 mg/dl (40-60); Potassium 4.6 mmoL/L (3.5-5.1); Sodium 142 mmol/L (136-145); Total Protein,Serum 6.6 g/dl (6.3-8.2); Triglycerides 91 mg/dl (30-150); VLDL Cholesterol 18 mg/dL (0-40)
[2023-04-07 09:13] LABS: Erythrocyte Sedimentation Rate 4 mm/hr (0-15)
[2023-04-07 09:15] LABS: Direct LDL Cholesterol 86.23 mg/dL (100-129)
== END 2023-04-07 23:59 ==
LOC: LAB 07:52
PROVIDERS: PCP Nurse Practitioner Family; Visit Provider Orthopaedic Surgery
DX: S82.302D Unspecified fracture of lower end of left tibia, subsequent encounter for closed fracture with routine healing (principal); E10.9 Type 1 diabetes mellitus without complications; E78.5 Hyperlipidemia, unspecified; M10.9 Gout, unspecified; M19.90 Unspecified osteoarthritis, unspecified site; Z79.4 Long term (current) use of insulin
CPT/HCPCS: 36415; 73610; 80053; 80061; 83036; 85651

== ENCOUNTER 2023-04-15 12:10 | Outpatient (CLI) | payer OTHER, SELFPAY ==
[2023-04-15 12:54] LABS: Basophils # 0.1 K/mm3 (0-0.2); Eosinophils # 0.2 K/mm3 (0.0-0.4); Hematocrit 48.9 % (42.0-52.0); Hemoglobin 15.6 g/dL (14.1-18.0); Lymphocytes # 2.6 K/mm3 (0.7-4.5); Lymphocytes % 24.5 % (10-50); Mean Corpuscular HGB Conc 31.8 g/dL (31.8-35.4); Mean Corpuscular Hemoglobin 30.3 pg (27.0-31.2); Mean Corpuscular Volume 95.2 fl (80-94); Mean Platelet Volume 7.7 fl (7.4-10.4); Monocytes # 0.6 K/mm3 (0.1-1.0); Monocytes % 5.8 % (1.7-9.3); Neutrophils # 7.1 K/mm3 (1.8-7.8); Neutrophils % 66.7 % (37.0-80.0); Platelet Count 293 K/mm3 (142-424); Red Blood Count 5.14 M/mm3 (4.60-6.20); Red Cell Distribution Width 13.9 % (11.5-17.5); White Blood Count 10.6 K/mm3 (4.8-10.8)
[2023-04-15 13:16] LABS: Anion Gap 11.5 mEq/L (5-15); Blood Urea Nitrogen 24 mg/dl (9-20); Calcium 9.6 mg/dl (8.4-10.2); Carbon Dioxide 32 mmol/L (22.0-30.0); Chloride 103 mmol/L (98-107); Estimated Glomerular Filt Rate 80 ml/min (>60); GFR (African American) 97 ML/MIN (>60); Magnesium 2.1 mg/dl (1.6-2.3); Potassium 4.5 mmoL/L (3.5-5.1); Sodium 142 mmol/L (136-145)
[2023-04-15 13:21] LABS: Glucose 46 mg/dl (74-100); NT Pro Brain Natriuretic Pep. < 20.0 pg/mL (0-125)
== END 2023-04-15 23:59 ==
LOC: LAB 12:10
PROVIDERS: PCP Nurse Practitioner Family; Visit Provider Nurse Practitioner
DX: R60.0 Localized edema (principal); R06.09 Other forms of dyspnea
CPT/HCPCS: 36415; 80048; 83735; 83880; 85025

== ENCOUNTER 2023-04-15 12:45 | Outpatient (CLI) | payer OTHER, SELFPAY | END 2023-04-15 14:28 | disposition home or self-care (01) | PROVIDERS: PCP Nurse Practitioner Family; Visit Provider Nurse Practitioner Family | DX: Z02.4 Encounter for examination for driving license (principal) ==

== ENCOUNTER 2023-04-15 14:28 | Outpatient (CLI) | payer OTHER, SELFPAY ==
--- NOTE | 2023-04-15 14:28 | CA_ITS ---
APPROVED REPORT EXAM: Comprehensive 2D, Doppler, and color-flow Echocardiogram Search And Rescue Officer: Joan Bonilla CRT Ht: 5 ft 11 in Wt: 290lbs BSA: 2.47 BP: 128/79 mmHg Indications: Abnormal ECG, Chest Pain, Shortness of Breath, Diabetes, Peripheral Edema, Hyperlipidemia, Hypertension/HDD 2D Dimensions LA Volume 43.30 mL LA Volume Index 17.10 mL/m2 (M/F) 16-34 M-Mode Dimensions RVDd 2.40 cm (0.9-2.6) LA Diam 3.36 cm (1.9-4.0) LVDd 5.03 cm (3.5-5.7) LVDs 2.97 cm (3.5-5.7) IVSd 1.64 cm (0.6-1.1) PWd 0.76 cm (0.6-1.1) EF (Teich) 71.50% FS 41.00% EDV (Teich) 119.90 mL TAPSE 3.06 (<1.7) ESV (Teich) 34.20 mL LV Diastology E Decel Time 183 (160-240 msec) E/A Ratio 0.79 MED A' 14.10 cm/s LAT A' 12.40 cm/s Aortic Valve AO Peak GR. 6.90 mmHg Mitral Valve MV E Max David. 60.0 (40-130 cm/s) MV A Velocity 76.0 (40-130 cm/s) E/A Ratio 0.79 MV PHT 54.0 ms Pulmonary Valve PV Peak Velocity 131.0 (50-150 cm/s) Tricuspid Valve TR P. Velocity 212.00 cm/s RAP Estimate 10.00 mmHg RVSP 28.00 mmHg Left Ventricle The left ventricle is normal size. The left ventricular systolic function is normal. The left ventricular ejection fraction is within the normal range. There is increased LV wall thickness. There is normal LV segmental wall motion. The left ventricular diastolic function is normal. LVEF is 55%. Right Ventricle The right ventricle is mildly dilated. The right ventricular systolic function is normal. Atria The left atrium size is normal. The right atrium size is normal. There is no Doppler evidence of interatrial shunt. Aortic Valve The aortic valve opens well. There is no aortic valvular stenosis. No aortic regurgitation is present. Mitral Valve The mitral valve is normal in structure. No evidence of mitral valve stenosis. There is no mitral valve regurgitation noted. Tricuspid Valve The tricuspid valve leaflets are thin and pliable. Trace tricuspid regurgitation. There is insufficient TR jet to estimate RVSP. Pulmonic Valve Pulmonic valve is not well-visualized. Trace pulmonic regurgitation. Great Vessels The aortic root is normal in size. The ascending aorta is normal in size. IVC is normal in size and collapses >50% with inspiration. Pericardium There is no pericardial effusion. Other Information Study Quality: Technically Difficult Conclusion Technically difficult study due to poor accoustic windows. Normal biventricular systolic function. Mild RV dilation. No significant valvular stenosis or regurgitation. Electronically signed by : Whit Fajardo MD 04/19/2023 12:27:14
== END 2023-04-15 23:59 ==
LOC: RT 14:28
PROVIDERS: PCP Nurse Practitioner Family; Visit Provider Nurse Practitioner
DX: R06.09 Other forms of dyspnea (principal); R07.89 Other chest pain; R60.0 Localized edema; R94.31 Abnormal electrocardiogram [ECG] [EKG]; I10 Essential (primary) hypertension; E78.5 Hyperlipidemia, unspecified
CPT/HCPCS: 93306

== ENCOUNTER 2023-05-27 07:58 | Day surgery (SDC) | payer OTHER, SELFPAY ==
[2023-05-27] VITALS (10 sets, daily range): BP systolic 111–151; BP diastolic 63–88; PULSE 81–99; RESP 16–20; TEMP 36.6; O2SAT 92–97; BMI 39.7
--- NOTE | 2023-05-27 07:06 | IR_ITS ---
APPROVED REPORT Patient Location: Outpatient Auto Design Detailer: JANAE Rutledge RT (R) PROCEDURES Left heart catheterization Left ventriculogram Selective coronary angiogram INDICATION Angina pectoris, Abnormal stress test Informed consent was obtained prior to the procedure. COMPLICATIONS None Estimated Blood Loss: Less than 10 mls TECHNIQUE One percent lidocaine used to anesthetize the right anterior aspect of the wrist. The right radial artery was accessed via the Seldinger technique. A 6 Romanian sheath was placed in the right radial artery. 2.5 mg of Verapamil, 800 mcg of nitroglycerin, 1mg Lidocaine and 5000 U Heparin were given through the arterial sheath. The papa catheter was also used to perform left heart catheterization, left ventriculogram and selective coronary angiogram. At the end of the procedure the sheath was removed good hemostasis was achieved using Traclet band, patient was transferred to the postop holding area in stable condition. ANGIOGRAPHIC RESULTS The left main artery Normal The left anterior descending artery Normal The circumflex artery Dominant normal The right coronary artery Normal The LUNA ventriculogram reveals Normal 65% The left ventricular end-diastolic pressure 10 mmHg IMPRESSION Normal coronary arteries Normal ejection fraction Normal LVEDP PLAN 1. Evaluation of noncardiac symptoms Electronically signed by : Jose Sargent MD 05/27/2023 10:25:16
[2023-05-27] MEDS: LIDOCAINE 1% 10ML MDV 20 ML IJ (08:24)
[2023-05-27] MEDS: HEPARIN 1,000 UNITS/500ML NS (CATH LAB) 3000 UNIT IV (08:24)
[2023-05-27] MEDS: 0.9 % SODIUM CHLORIDE 500 ML 25 ML IV (08:24)
[2023-05-27] MEDS: HEPARIN 1,000 UNITS/ML 10ML VIAL (CATH LAB) 10000 UNIT IV (08:25)
[2023-05-27] MEDS: NITROGLYCERIN 800MCG/8ML SYR (CATH LAB) 800 MCG IA (08:25)
[2023-05-27] MEDS: diphenhydrAMINE 50MG/ML VIAL 50 MG IV (08:25)
[2023-05-27 08:30] LABS: Chloride 101 mmol/L (98-107); Potassium 4.2 mmoL/L (3.5-5.1); Sodium 136 mmol/L (136-145)
[2023-05-27 08:33] LABS: Anion Gap 11.2 mEq/L (5-15); Blood Urea Nitrogen 24 mg/dl (9-20); Carbon Dioxide 28 mmol/L (22.0-30.0); Creatinine Clearance Estimated 188 mL/min (50-200); Estimated Glomerular Filt Rate 91 ml/min (>60); GFR (African American) 110 ML/MIN (>60)
[2023-05-27 08:34] LABS: Calcium 8.3 mg/dl (8.4-10.2); Glucose 318 mg/dl (74-100)
[2023-05-27] MEDS: MIDAZOLAM HCL 1MG/1ML 5ML VIAL 1 MG IV (08:41)
[2023-05-27] MEDS: FENTANYL 100MCG/2ML VIAL 50 MCG IV (08:42)
[2023-05-27 09:09] LABS: Basophils # 0.1 K/mm3 (0-0.2); Basophils % 0.5 % (0.1-2.0); Eosinophils # 0.1 K/mm3 (0.0-0.4); Eosinophils % 0.6 % (0.1-12.0); Hematocrit 51.6 % (42.0-52.0); Hemoglobin 16.2 g/dL (14.1-18.0); Lymphocytes # 1.1 K/mm3 (0.7-4.5); Lymphocytes % 10.1 % (10-50); Mean Corpuscular HGB Conc 31.5 g/dL (31.8-35.4); Mean Corpuscular Volume 95.5 fl (80-94); Mean Platelet Volume 7.9 fl (7.4-10.4); Monocytes # 0.5 K/mm3 (0.1-1.0); Monocytes % 4.6 % (1.7-9.3); Neutrophils # 9.1 K/mm3 (1.8-7.8); Neutrophils % 84.1 % (37.0-80.0); Platelet Count 266 K/mm3 (142-424); Red Blood Count 5.41 M/mm3 (4.60-6.20); Red Cell Distribution Width 14.4 % (11.5-17.5); White Blood Count 10.8 K/mm3 (4.8-10.8)
[2023-05-27] MEDS: IOPAMIDOL-370 (76%);100ML BOTTLE 50 ML IV (09:17)
== END 2023-05-27 11:46 | disposition home or self-care (01) ==
LOC: CATHLAB 07:59
PROVIDERS: PCP Nurse Practitioner Family; Visit Provider Internal Medicine
DX: I20.0 Unstable angina (principal); R94.31 Abnormal electrocardiogram [ECG] [EKG]; E78.5 Hyperlipidemia, unspecified; R06.09 Other forms of dyspnea; I10 Essential (primary) hypertension; R07.89 Other chest pain; E11.9 Type 2 diabetes mellitus without complications; Z79.4 Long term (current) use of insulin; Z79.899 Other long term (current) drug therapy; E55.9 Vitamin D deficiency, unspecified
CPT/HCPCS: 80048; 85025; 93458; 99152; C1725; C1760; C1769; J1644; Q9967

== ENCOUNTER 2023-06-23 14:45 | Outpatient (POV) | payer OTHER, SELFPAY ==
[2023-06-23 14:56] VITALS: BP 141/68; PULSE 75; RESP 18; O2SAT 98; BMI 35.4
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
== END 2023-06-23 23:59 | disposition home or self-care (01) ==
LOC: SC.PAIN 14:46
PROVIDERS: PCP Nurse Practitioner Family; Visit Provider Nurse Practitioner Family
DX: M54.50 Low back pain, unspecified (principal); G89.29 Other chronic pain; M54.16 Radiculopathy, lumbar region; M54.2 Cervicalgia; M54.12 Radiculopathy, cervical region
CPT/HCPCS: 99202; G0463

== ENCOUNTER 2023-07-12 07:50 | Day surgery (SDC) | payer OTHER, SELFPAY ==
[2023-07-12 09:02] VITALS: BP 130/73; PULSE 85; RESP 18; TEMP 36.2; O2SAT 96; BMI 39.7
[2023-07-12 09:05] VITALS: BP 128/66; PULSE 74; RESP 18; O2SAT 98
[2023-07-12] MEDS: methylPREDNISolone ACETATE 80MG/ML VIAL 80 MG (09:07)
[2023-07-12 09:08] VITALS: BP 116/67; PULSE 62; PULSE 65; RESP 18; O2SAT 93
--- NOTE | 2023-07-12 09:10 | EXP.PAIN.PRO ---
Procedure Date: 07/12/23 Time: 09:00 Anesthesiologist:: Mike Esparza CRNA Complications:: None Pre-procedure Diagnosis:: Degenerative disc lumbar spine multilevels. Lumbar radiculopathy. Lumbar back pain. Post-procedure Diagnosis:: Same. Indications for Procedure:: Patient is a very pleasant 47-year-old male comes to clinic today for lumbar epidural steroid injection at L4-5 level. Patient reports low back pain as well as bilateral hip and leg radicular symptoms. He rates his pain 6/10. Procedure Details:: Procedure: Lumbar epidural steroid injection under fluoroscopy Informed consent was obtained and the risks and benefits of the procedure were explained to the patient. The patient was taken to the procedure room and noninvasive monitors placed, including noninvasive blood pressure cuff and pulse oximeter. The back was viewed using C-arm Fluoroscopy and prepped using Chloraprep as a cleansing solution and the L4-L5 interspace was palpated. Skin and subcutaneous tissues were anesthetized using lidocaine 1.5% and a 25-gauge needle. After this, an 18-gauge Touhy epidural needle was placed into the L4-L5 interspace and advanced using fluoroscopic guidance and loss of resistance to air until the epidural space was encountered. After confirmation of needle placement in the epidural space, with dye, a solution containing normal saline, 3 mL and Depo-Medrol 80 mg were incrementally injected into the lumbar epidural space. The patient tolerated the procedure well with no complications. The patient was observed in the Pain Clinic and then discharged home neurologically intact. Plan and Disposition:: Patient was discharged without incident.
== END 2023-07-12 09:05 | disposition home or self-care (01) ==
PROVIDERS: PCP Nurse Practitioner Family; Visit Provider Nurse Anesthetist, Certified Registered
DX: M51.16 Intervertebral disc disorders with radiculopathy, lumbar region (principal); M54.50 Low back pain, unspecified
CPT/HCPCS: 62323; J1010

== ENCOUNTER 2023-07-27 09:48 | Outpatient (CLI) | payer OTHER, SELFPAY ==
--- OUTSIDE RECORDS SUMMARY | 2023-07-27 09:53 | XMS_ITS | Patient Health Record ---
Author Name Unknown Organization [facility] Address [address] [place] [address] Care Team Providers Care Implementation Advisor Name Role Phone Ayse Gusman Primary Care Provider [phone] AYSE GUSMAN Unavailable Unavaila ble ALLERGIES Allergen (clinical drug ingredient) Drug/Non Drug Allergy documented on EMR Reaction Allergy Type Onset Date Status penicillin Unknown Drug Allergy Active REASON FOR REFERRAL No Information MEDICATIONS Medication SIG (Take, Route, Frequency, Duration) Notes Start Date End Date Status NovoLOG FlexPen 100 units/mL 40 units subcutaneously 3 times a day (before meals) for 90 days Active DULoxetine 60 mg 1 cap(s) orally once a day for 30 day(s) Betsy Tobias Active Dexcom G6 Sensor 3 pack blood-glucose sensor - 08/31/2021 Active Centrum Men's Therapeutic Multiple Vitamins with Minerals 1 tab(s) orally once a day for 30 day(s) Active Dexcom G6 Glue Jointer Operator - 08/31/2021 Active allopurinol 300 mg 1 tab(s) orally once a day for 90 days Active Dexcom G6 blood-glucose transmitter - 08/31/2021 Active diclofenac sodium 75 mg 1 tab(s) orally 2 times a day for 90 days Active lisinopril 10 mg 1 tab(s) orally once a day for 90 days Active simvastatin 5 mg 1 tab(s) orally once a day (at bedtime) for 90 days Active Levemir 100 units/mL 90 units subcutaneo usly once a day for 90 days Active Vitamin D3 1250 mcg 1 cap(s) orally once a week for 90 days 2500mcg Active Vitamin B12 2500 mcg 1 tab(s) sublingual ly once a day for 90 days Active SOCIAL HISTORY Tobacco Use: Social History Observation Description Date Details (start date - stop date) Never Smoker NA - NA Sex Assigned At : Social History Observation Description Sex Assigned At Unknown Smoking: Question Answer Notes Are you a: nonsmoker PROBLEMS Problem Type ICD Code Onset Dates Problem Status W/U Status Risk SNOMED Code Notes Problem HTN (hypertension), benign (I10) Active confirmed 10766410 Problem Other chronic pain (G89.29) Active confirmed 61778229 Problem Chronic fatigue (R53.82) Active confirmed 97163503 Problem Hyperuricemia (E79.0) Active confirmed 25445692 Problem Type 1 diabetes mellitus without complication (E10.9) Active confirmed 942304383 PLAN OF TREATMENT Pending Test Test Name Order Date Y-Rpzv-Wvxzgbu Antibody Titer 08/24/2021 M-Vitamin B12 08/24/2021 M-Folate 08/24/2021 M-Microalb/Creat Ratio, Randm Ur 022 Insurance Providers Payer Name Payer Address Payer Phone Subscriber Number Group Number Insured Name Patient Relationship to Insured Coverage Start Date Coverage End Date [employer] [address] [address] [place] [address] [id number] Raghav Alicia Self - patient is the insured MEDICAL (GENERAL) HISTORY Medical History History ICD Code Diabetic Hyperlipidemia HTN Gout Arthritis Surgical History Surgery Date(Month/Year) vascetomy 2004 Hospitalization History Reason Date(Month/Year) Diabetes 1994
--- NOTE | 2023-07-27 10:43 | XR_ITS ---
FINAL REPORT TECHNIQUE: 5 views CLINICAL HISTORY: neck and lower back pain , bilateral arm tingling and numbness, leg pain COMPARISON: None FINDINGS: CERVICAL SPINE: 5 views of the cervical spine were obtained with no prior films available for comparison purposes. There is mild degenerative disc disease present as well as mild facet arthropathy. No prevertebral soft tissue swelling is present. No acute bony abnormality is identified. IMPRESSION: Degenerative change as described without acute bony abnormality identified. LUMBAR SPINE: 5 views of the lumbar spine were obtained with no prior films available for comparison purposes. There is moderate degenerative disc disease, most pronounced at the L4-5 level. There is probable canal stenosis and neural foraminal narrowing present in the lower lumbar spine. No acute bony abnormality is identified. IMPRESSION: Degenerative change as described without acute bony abnormality identified. Reviewed, Interpreted and Dictated by Arabella Echols MD Transcribed by Alem Person Authenticated and . [facility]
[2023-07-27 11:34] LABS: Magnesium 1.9 mg/dl (1.6-2.3); Potassium 4.3 mmoL/L (3.5-5.1)
== END 2023-07-27 23:59 | disposition home or self-care (01) ==
PROVIDERS: PCP Nurse Practitioner Family; Visit Provider Internal Medicine
DX: M54.50 Low back pain, unspecified (principal); R20.2 Paresthesia of skin; R20.0 Anesthesia of skin; R60.0 Localized edema
CPT/HCPCS: 36415; 72084; 83735; 84132

== ENCOUNTER 2023-07-27 09:59 | Outpatient (POV) | payer OTHER, SELFPAY ==
[2023-07-27 10:11] VITALS: BP 115/70; PULSE 82; RESP 18; O2SAT 96; BMI 39.7
--- NOTE | 2023-07-27 10:32 | EXP.PAIN.SOA ---
[facility] Pain Management SOAP Note Subjective:: Patient is a pleasant 47-year-old male who presents today for follow-up of lumbar epidural steroid injection L4-L5 on 07/12/2023. Today he rates his pain a 7 out of 10. He denies any new trauma or injury. Patient states he did have approximately 50% relief however it only really lasted while the numbing medication was working about 3 hours. Patient states that he immediately went back to his baseline. Patient states he continues to have the chronic low back pain into his lower extremities and neck pain with pain into his upper extremities. Patient has tried and failed conservative therapies such as oral medication, heat and ice, topicals, prior physical therapy and continued at home stretching and exercise for longer than 6 weeks. Patient states the compounded cream we ordered did not really seem to do much either. His Marcin has been reviewed and is appropriate. Review of Systems: General: No recent weight changes, no fever, no sleep disturbances Respiratory: No cough, no shortness of air, no recurring pulmonary infections Cardiovascular/peripheral vascular: No chest pain, no palpitations, no edema, no shortness of breath Gastrointestinal: No new onset incontinence, normal bowel movements reported Genitourinary: No new onset incontinence Musculoskeletal: Low back pain, neck pain Psychiatric: [Normal mood/affect] Neurological: [Denies weakness in extremities], [denies balance issues] Objective:: Physical Exam: General: Alert and oriented x3, no acute distress, pleasant and cooperative Lungs: Respirations even and unlabored, symmetrical chest expansion Eyes: PERRL Musculoskeletal: Flexion and extension of lumbar [spine] somewhat guarded secondary to pain, [antalgic gait noted] Neurological: Speech clear, no gross sensory deficit Assessment:: Degenerative disc disease of cervical and lumbar spine with cervical and lumbar radiculopathy symptoms Plan:: Patient has been diagnosed with degenerative disc both in his neck and low back in the past however it has been years since he had updated imaging. I have counseled the patient that we will order x-ray imaging of his cervical and lumbar spine with the plan to proceed forward and order MRI of cervical and lumbar spine without contrast. Patient will return to clinic for reevaluation of symptoms and plan of care after having the advanced imaging in 1 month. Patient has been instructed to contact the clinic with any concerns before the next appointment. Dr. Flowers has reviewed this note and agrees with this plan of care. This note was dictated using voice recognition software and make contain errors or omissions. [facility] Disclaimer: The information contained in this section may have been updated after the patient was seen, as this information can be updated by other users. Medical History Dyspnea on exertion Restrictive lung disease ILD (interstitial lung disease) BMI 37.0-37.9, adult Ankle pain Vitamin D deficiency Depression Arthritis Vitamin B12 deficiency Hyperlipidemia DDD (degenerative disc disease) Major depressive disorder HTN (hypertension) Abnormal electrocardiography Sinus tachycardia Knee swelling Knee pain Removal of gregorio Head injury Scalp laceration Sinus pressure Surgical History History of colonoscopy History of vasectomy Family History Other Family history of cancer Family history of diabetes mellitus type I Prostate cancer Social History Smoking Status: Never smoker alcohol intake: never substance use type: denies use current occupational status: employed Travel in the last 8 weeks: None household members: family housing: house marital status: number of children: 2 education level: high school service: No assisted: No current occupational exposures/hazards: Yes caffeine: Yes special reed needs: No agree to transfusion: No do you feel safe at home: Yes victim of physical abuse: No victim of emotional abuse: No victim of sexual abuse: No would you like helpful sources: No
== END 2023-07-27 23:59 | disposition home or self-care (01) ==
LOC: SC.PAIN 10:00
PROVIDERS: PCP Nurse Practitioner Family; Visit Provider Nurse Practitioner Family
DX: M50.10 Cervical disc disorder with radiculopathy, unspecified cervical region (principal); M51.16 Intervertebral disc disorders with radiculopathy, lumbar region
CPT/HCPCS: 99212; G0463

== ENCOUNTER 2023-08-23 16:56 | Outpatient (CLI) | payer OTHER, SELFPAY ==
--- NOTE | 2023-08-23 16:59 | MR_ITS ---
FINAL REPORT TECHNIQUE: Multiplanar and multisequence imaging of the lumbar spine was obtained without contrast. CLINICAL HISTORY: NECK AND LOW BACK PAIN. NECK AND LOW BACK PAIN. BILATERAL ARM AND LEG PAIN, NUMBNESS AND TINGLING. FINDINGS: There is normal alignment of the lumbar vertebral bodies. Vertebral body height is preserved. The spinal cord ends at the level of L1. There is normal signal intensity within the substance of the distal spinal cord. There are degenerative marrow changes at the endplates of L4 -5. No acute paraspinal abnormality is identified. L1-2: There is no focal disc herniation, central canal stenosis or neuroforaminal narrowing. L2-3: An annular disc bulge is present with degenerative endplate changes and facet osteoarthropathy. Mild central stenosis. Mild, left greater than right neural foraminal narrowing. L3-4: An annular disc bulge is present with degenerative endplate changes and facet osteoarthropathy. Mild central stenosis and mild bilateral neural foraminal narrowing. L4-5: An annular disc bulge is present with degenerative endplate changes and facet osteoarthropathy. Mild central stenosis. Mild right and moderate left neural foraminal narrowing. L5-S1: An annular disc bulge is present with degenerative endplate changes and facet osteoarthropathy. Mild central stenosis. Moderate right and severe left neural foraminal narrowing. IMPRESSION: Multilevel degenerative disc disease, most pronounced in the lower lumbar spine. Reviewed, Interpreted and Dictated by Cee Kee MD Transcribed by Mitzi Bah Authenticated and [facility]
--- NOTE | 2023-08-23 16:59 | MR_ITS ---
FINAL REPORT TECHNIQUE: Multiplanar and multisequence imaging of the cervical spine was obtained. CLINICAL HISTORY: NECK AND LOW BACK PAIN. BILATERAL ARM AND LEG PAIN, NUMBNESS AND TINGLING. FINDINGS: Alignment is normal. Vertebral body height is preserved. Signal intensity within the substance of the spinal cord is normal. Bone marrow signal intensity is within normal limits. No acute paraspinal abnormality. C2/3: An annular disc bulge is present with degenerative endplate change. No central stenosis or neural foraminal narrowing. C3/4: Small central disc protrusion. No central stenosis or neural foraminal narrowing. C4/5: Small central protrusion superimposed on an annular disc bulge. Mild central stenosis. C5/6: An annular disc bulge is present with degenerative endplate change and facet osteoarthropathy. Mild central stenosis. Moderate right, greater than left neural foraminal narrowing. C6/7: An annular disc bulge is present with degenerative endplate change and facet osteoarthropathy. Mild central stenosis. Severe right and moderate left neural foraminal narrowing. C7/T1: Central disc protrusion is present. Mild central stenosis and mild left neural foraminal narrowing. IMPRESSION: Multilevel degenerative disc disease with multilevel central disc protrusions and areas of central canal stenosis. Reviewed, Interpreted and Dictated by Cee Kee MD Transcribed by Mitzi Bah Authenticated and [facility]
== END 2023-08-23 23:59 | disposition home or self-care (01) ==
LOC: RAD 16:57
PROVIDERS: PCP Nurse Practitioner Family; Visit Provider Nurse Practitioner Family
DX: M54.2 Cervicalgia (principal); M54.50 Low back pain, unspecified
CPT/HCPCS: 72141; 72148

== ENCOUNTER 2023-08-25 09:17 | Outpatient (POV) | payer OTHER, SELFPAY ==
--- OUTSIDE RECORDS SUMMARY | 2023-08-25 09:19 | XMS_ITS | Patient Health Record ---
Author Name Unknown Organization [facility] Address [address] [place] [address] Care Team Providers Care Mortgage Loan Reviewer Name Role Phone Ayse Gusman Primary Care Provider [phone] AYSE GUSMAN Unavailable Unavaila ble ALLERGIES Allergen [...] day for 30 day(s) Active Dexcom G6 Patient Access Registrar - 08/31/2021 Active allopurinol 300 mg 1 [...] Problem HTN (hypertension), benign (I10) Active confirmed 51389007 Problem Other chronic pain (G89.29) Active confirmed 45728356 Problem Chronic fatigue (R53.82) Active confirmed 08665257 Problem Hyperuricemia (E79.0) Active confirmed 23359250 Problem Type 1 diabetes mellitus without complication (E10.9) Active confirmed 395866118 PLAN OF TREATMENT Pending Test Test Name Order Date W-Xyss-Flkknsl Antibody Titer 08/24/2021 M-Vitamin B12 08/24/2021 M-Folate 08/24/2021 M-Microalb/Creat Ratio, Randm Ur 022 Insurance Providers Payer Name Payer Address Payer Phone Subscriber Number Group Number Insured Name Patient Relationship to Insured Coverage Start Date Coverage End Date [employer] [address] [address] [place] [address] [id number] [phone] Raghav Alicia Self - patient is the insured MEDICAL (GENERAL) HISTORY Medical History History ICD Code Diabetic Hyperlipidemia HTN Gout Arthritis Surgical History Surgery Date(Month/Year) vascetomy 2004 Hospitalization History Reason Date(Month/Year) Diabetes 1994
--- NOTE | 2023-08-25 09:26 | EXP.PAIN.SOA ---
[facility] Disclaimer: The information contained in this section may have been updated after the patient was seen, as this information can be updated by other users. Medical History Dyspnea on exertion Restrictive lung disease ILD (interstitial lung disease) BMI 37.0-37.9, adult Ankle pain Vitamin D deficiency Depression Arthritis Vitamin B12 deficiency Hyperlipidemia DDD (degenerative disc disease) Major depressive disorder HTN (hypertension) Abnormal electrocardiography Sinus tachycardia Knee swelling Knee pain Removal of gregorio Head injury Scalp laceration Sinus pressure Surgical History History of colonoscopy History of vasectomy Family History Other Family history of cancer Family history of diabetes mellitus type I Prostate cancer Social History Smoking Status: Never smoker alcohol intake: never substance use type: denies use current occupational status: other Travel in the last 8 weeks: None household members: family housing: house marital status: number of children: 2 education level: high school service: No residential: No current occupational exposures/hazards: Yes caffeine: Yes special reed needs: No agree to transfusion: No do you feel safe at home: Yes victim of physical abuse: No victim of emotional abuse: No victim of sexual abuse: No would you like helpful sources: No PM Subjective & Objective Subjective Subjective:: Patient is a pleasant 47-year-old male who presents today for follow-up of cervical and lumbar MRI. Today he rates his pain a 10 out of 10. Patient denies any new trauma or injury. He states he continues to have chronic neck and low back pain that is severe and interferes with his ability to perform activities of daily living such as cooking and cleaning. Patient does feel like the injection he had prior to helped some however feels like he has had worsening symptoms of numbness and tingling into his upper extremities. Patient states he would like to do any type of physical intervention or treatment to get overall improvements. He states he just feels like he cannot do anything without the severe pain and feels like with all his other health issues he is on the way to having to file for disability. Patient is prescribed compounded cream however felt like it really did not give significant improvement. Patient does have a heart history. His Marcin has been reviewed and is appropriate. Review of Systems: General: No recent weight changes, no fever, no sleep disturbances Respiratory: No cough, no shortness of air, no recurring pulmonary infections Cardiovascular/peripheral vascular: No chest pain, no palpitations, no edema, no shortness of breath Gastrointestinal: No new onset incontinence, normal bowel movements reported Genitourinary: No new onset incontinence Musculoskeletal: Low back pain, neck pain Psychiatric: [Normal mood/affect] Neurological: [Denies weakness in extremities], [denies balance issues] Pain at rest (0-10 scale): 10 Objective Objective:: Physical Exam: General: Alert and oriented x3, no acute distress, pleasant and cooperative Lungs: Respirations even and unlabored, symmetrical chest expansion Eyes: PERRL Musculoskeletal: Flexion and extension of lumbar [spine] somewhat guarded secondary to pain, [antalgic gait noted] Neurological: Speech clear, no gross sensory deficit FINDINGS: Alignment is normal. Vertebral body height is preserved. Signal intensity within the substance of the spinal cord is normal. Bone marrow signal intensity is within normal limits. No acute paraspinal abnormality. C2/3: An annular disc bulge is present with degenerative endplate change. No central stenosis or neural foraminal narrowing. C3/4: Small central disc protrusion. No central stenosis or neural foraminal narrowing. C4/5: Small central protrusion superimposed on an annular disc bulge. Mild central stenosis. C5/6: An annular disc bulge is present with degenerative endplate change and facet osteoarthropathy. Mild central stenosis. Moderate right, greater than left neural foraminal narrowing. C6/7: An annular disc bulge is present with degenerative endplate change and facet osteoarthropathy. Mild central stenosis. Severe right and moderate left neural foraminal narrowing. C7/T1: Central disc protrusion is present. Mild central stenosis and mild left neural foraminal narrowing. IMPRESSION: Multilevel degenerative disc disease with multilevel central disc protrusions and areas of central canal stenosis. Reviewed, Interpreted and Dictated by Cee Kee MD Transcribed by Mitzi Bah Authenticated and [facility] FINDINGS: There is normal alignment of the lumbar vertebral bodies. Vertebral body height is preserved. The spinal cord ends at the level of L1. There is normal signal intensity within the substance of the distal spinal cord. There are degenerative marrow changes at the endplates of L4 -5. No acute paraspinal abnormality is identified. L1-2: There is no focal disc herniation, central canal stenosis or neuroforaminal narrowing. L2-3: An annular disc bulge is present with degenerative endplate changes and facet osteoarthropathy. Mild central stenosis. Mild, left greater than right neural foraminal narrowing. L3-4: An annular disc bulge is present with degenerative endplate changes and facet osteoarthropathy. Mild central stenosis and mild bilateral neural foraminal narrowing. L4-5: An annular disc bulge is present with degenerative endplate changes and facet osteoarthropathy. Mild central stenosis. Mild right and moderate left neural foraminal narrowing. L5-S1: An annular disc bulge is present with degenerative endplate changes and facet osteoarthropathy. Mild central stenosis. Moderate right and severe left neural foraminal narrowing. IMPRESSION: Multilevel degenerative disc disease, most pronounced in the lower lumbar spine. Reviewed, Interpreted and Dictated by Cee Kee MD Transcribed by Mitzi Bah Authenticated and [facility] Has patient had previous pain injection?: No Conservative treatment options previously tried: Home exercise plan Length of treatment: Longer than 6 weeks Meds Home Medications and Allergies Home Medications Medication Instructions Recorded Confirmed Type sour massey extract 1,000 mg 1,200 mg PO DAILY . 08/24/17 08/25/23 History capsule (Tart Massey Extract) fluticasone propionate 50 1 spray intranasal QDAY PRN 05/26/22 08/25/23 History mcg/actuation nasal allergies spray,suspension (Flonase Allergy Relief) blood sugar diagnostic (Accu-Chek 10/20/22 08/25/23 History Sherrill Plus test strips) blood-glucose meter (Accu-Chek 10/20/22 08/25/23 History Sherrill Plus Meter) lancets (Accu-Chek Fastclix Lancet 10/20/22 08/25/23 History Drum) blood-glucose meter,continuous #1 ea 02/01/23 08/25/23 Rx (Dexcom G6 Hand Decorator) blood-glucose sensor (To8tocom G6 #3 ea 02/01/23 08/25/23 Rx Sensor device) blood-glucose transmitter (Dexcom #1 ea 02/01/23 08/25/23 Rx G6 Transmitter device) insulin pump cartridge,automated #1 ea 03/03/23 08/25/23 Rx dose,BT with controller subcutaneous (Omnipod 5 G6 Intro Kit (Gen 5) subcutaneous cartridge with controller) allopurinol 300 mg tablet See Rx Instructions .Route 03/07/23 08/25/23 Rx .COMPLEX #90 tabs cetirizine 10 mg tablet See Rx Instructions .Route 03/07/23 08/25/23 Rx .COMPLEX #90 tabs omega-3 acid ethyl esters 1 gram See Rx Instructions .Route 03/07/23 08/25/23 Rx capsule .COMPLEX #180 caps simvastatin 5 mg tablet See Rx Instructions .Route 03/07/23 08/25/23 Rx .COMPLEX #90 tabs insulin pump cart,automated,BT #5 ea 03/16/23 08/25/23 Rx (Omnipod 5 G6 Pods (Gen 5) subcutaneous cartridge) furosemide 40 mg tablet (Lasix) 40 mg PO DAILY #30 tabs 04/13/23 08/25/23 Rx empagliflozin 10 mg tablet 10 mg PO DAILY #90 tabs 04/20/23 08/25/23 Rx (Jardiance) isosorbide mononitrate 30 mg 30 mg PO DAILY #90 tabs 04/20/23 08/25/23 Rx tablet,extended release 24 hr spironolactone 25 mg tablet 25 mg PO DAILY #90 tabs 04/20/23 08/25/23 Rx (Aldactone) insulin regular human 100 unit/mL 1 sliding scale dose SQ 05/01/23 08/25/23 Rx injection solution (Humulin R USEASDIRECTD Omnipod insulin pump Regular U-100 Insulin) #40 mL losartan 50 mg tablet 50 mg PO DAILY BP #90 tabs 05/04/23 08/25/23 Rx nifedipine 30 mg tablet,extended 30 mg PO DAILY #90 tabs 06/21/23 08/25/23 Rx release 24 hr diclofenac sodium 75 mg See Rx Instructions .Route 06/29/23 08/25/23 Rx tablet,delayed release .COMPLEX #60 tabs fenofibrate nanocrystallized 145 See Rx Instructions .Route 06/29/23 08/25/23 Rx mg tablet .COMPLEX #90 tabs pantoprazole 40 mg tablet,delayed See Rx Instructions .Route 06/30/23 08/25/23 Rx release .COMPLEX #90 tabs cholecalciferol (vitamin D3) 50 See Rx Instructions .Route 08/01/23 08/25/23 Rx mcg (2,000 unit) capsule (Vitamin .COMPLEX #90 caps D3) fluoxetine 40 mg capsule See Rx Instructions .Route 08/01/23 08/25/23 Rx .COMPLEX #90 caps amlodipine 5 mg tablet (Norvasc) 5 mg PO DAILY #30 tabs 08/25/23 08/25/23 Rx New Prescriptions to Start Prescriptions: Allergies Allergy/AdvReac Type Severity Reaction Status Date / Time Penicillins Allergy Intermediate Rash Verified 08/25/23 10:02 metoprolol AdvReac Mild nausea Verified 08/25/23 10:02 bisoprolol AdvReac lowered Verified 08/25/23 10:02 sugar level Assessment and Plan *Assessment and plan (1) Cervical radiculopathy: Status: Acute Category: Medical Code(s): M54.12 - Radiculopathy, cervical region (2) Degenerative disc disease, lumbar: Status: Acute Category: Medical Code(s): M51.36 - Other intervertebral disc degeneration, lumbar region (3) Degenerative disc disease, cervical: Status: Acute Category: Medical Code(s): M50.30 - Other cervical disc degeneration, unspecified cervical region (4) Chronic pain syndrome: Status: Acute Category: Medical Code(s): G89.4 - Chronic pain syndrome (5) Lumbar radiculopathy: Status: Acute Category: Medical Code(s): M54.16 - Radiculopathy, lumbar region Plan I did review with the patient at length over his cervical and lumbar MRI findings. Patient does have multilevel degenerative disc disease with varying degrees of stenosis and multilevel disc bulges and facet arthropathy. Due to the extent of some narrowing that is more severe I have discussed with the patient that it may be beneficial to talk to neurosurgery. We will send a referral to [facility] with Dr. Heriberto chen for evaluation of his cervical and lumbar spine. I have also discussed with the patient at length that he may benefit from a intrathecal pain pump trial. Risk and benefits were explained to the patient and he would like to proceed forward with this plan of care. I will order the patient a psychological evaluation and if he is deemed an appropriate patient for the pump trial we will plan to do this at a later date. Patient will return to clinic in 1 month for reevaluation of symptoms and plan of care. We wore out of the [employer] pump booklets at today's visit however he states that his works down in Dr. Sargent's office. We will plan on trying to get 1 of these pamphlets to her within the next couple of days. Patient has been instructed to contact the clinic with any concerns before the next appointment. Dr. Flowers has reviewed this note and agrees with this plan of care. This note was dictated using voice recognition software and make contain errors or omissions.
[2023-08-25 09:31] VITALS: BP 122/59; PULSE 80; RESP 16; O2SAT 97; BMI 40.4
== END 2023-08-25 23:59 | disposition home or self-care (01) ==
LOC: SC.PAIN 09:18
PROVIDERS: PCP Nurse Practitioner Family; Visit Provider Nurse Practitioner Family
DX: M50.10 Cervical disc disorder with radiculopathy, unspecified cervical region (principal); M51.16 Intervertebral disc disorders with radiculopathy, lumbar region; G89.4 Chronic pain syndrome; Z73.89 Other problems related to life management difficulty; Z79.899 Other long term (current) drug therapy
CPT/HCPCS: 99212; G0463

== ENCOUNTER 2024-07-10 09:15 | Outpatient (CLI) | payer OTHER, SELFPAY ==
[2024-07-10 13:15] LABS: Microscopic, Urine URINE MICROSCOPIC (MICROSCOPIC)
[2024-07-10 13:30] LABS: Basophils # 0.1 K/mm3 (0-0.2); Eosinophils # 0.2 Kmm3 (0.0-0.4); Eosinophils % 2.3 % (0.1-12.0); Hematocrit 49.1 % (42.0-52.0); Hemoglobin 16.3 g/dL (14.1-18.0); Immature Granulocytes # 0.03 10^3uL; Immature Granulocytes % 0.4 %; Lymphocytes # 1.8 K/mm3 (0.7-4.5); Lymphocytes % 22.6 % (10-50); Mean Corpuscular HGB Conc 33.2 g/dL (31.8-35.4); Mean Corpuscular Hemoglobin 29.6 pg (27.0-31.2); Mean Corpuscular Volume 89.3 fl (80-94); Mean Platelet Volume 10.2 fl (7.4-10.4); Monocytes # 0.7 K/mm3 (0.1-1.0); Monocytes % 8.2 % (1.7-9.3); Neutrophils # 5.3 K/mm3 (1.8-7.8); Neutrophils % 65.5 % (37.0-80.0); Nucleated Red Blood Cells # 0 10^3/uL; Nucleated Red Blood Cells % 0 %; Platelet Count 348 K/mm3 (142-424); Red Cell Distribution Width 14.9 % (11.5-17.5); Red Cell Distribution Width-SD 48.7 fL; White Blood Count 8.1 K/mm3 (4.8-10.8)
[2024-07-10 13:34] LABS: Appearance,Urine CLEAR (Clear); Bilirubin,Urine Negative (Negative); Blood, Urine Negative (Negative); Color,Urine YELLOW (Yellow); Glucose,Urine (UA) 3+ (Negative); Ketones,Urine Negative (Negative); Leukocyte Esterase,Urine Negative (Negative); Nitrate,Urine Negative (Negative); Protein,Urine Negative (Negative); Specific Gravity, Urine 1.015 (1.005-1.030); Urobilinogen,Urine 0.2 EU/dl (0.2)
[2024-07-10 13:45] LABS: Creatinine,Urine Random 197 mg/dL (Not Estab.)
[2024-07-10 13:51] LABS: Microalbumin < 6.000 mg/L (0-16.7)
[2024-07-10 14:13] LABS: Alanine Aminotransferase 29 U/L (12-78); Albumin Level 4.8 g/dl (3.5-5.0); Albumin/Globulin Ratio 1.7 (1.1-1.8); Alkaline Phosphatase 107 U/L (38-126); Anion Gap 13.8 mEq/L (5-15); Aspartate Amino Transferase 41 U/L (17-59); Bilirubin,Total 0.9 mg/dl (0.2-1.3); Blood Urea Nitrogen 19 mg/dl (9-20); Calcium 9.1 mg/dl (8.4-10.2); Carbon Dioxide 29 mmol/L (22.0-30.0); Chloride 103 mmol/L (98-107); Chol/HDL Ratio 2.6 (1-3.5); Cholesterol 144 mg/dl (140-200); Estimated Glomerular Filt Rate 72 ml/min (>60); GFR (African American) 87 ML/MIN (>60); Globulin 2.9 g/dL (1.3-3.2); Glucose 110 mg/dl (74-100); HDL Cholesterol 55 mg/dl (40-60); Potassium 4.8 mmoL/L (3.5-5.1); Sodium 141 mmol/L (136-145); Total Protein,Serum 7.7 g/dl (6.3-8.2); Triglycerides 56 mg/dl (30-150); VLDL Cholesterol 11 mg/dL (0-40)
[2024-07-10 14:22] LABS: Iron 102 ug/dL (49-181)
[2024-07-10 14:24] LABS: Direct LDL Cholesterol 64.38 mg/dL (100-129)
[2024-07-10 14:26] LABS: Free T4 (Free Thyroxine) 1.18 ng/dl (0.78-2.19)
[2024-07-10 14:27] LABS: 25-OH Vitamin D, Total 50.1 ng/mL (30-100)
[2024-07-10 14:31] LABS: Total Iron Binding Capacity 354 ug/dL (261-462)
[2024-07-10 14:43] LABS: Thyroid Stimulating Hormone 1.11 uIU/mL (0.465-4.68)
[2024-07-10 14:58] LABS: Ferritin 162 ng/ml (17.9-464)
[2024-07-10 15:10] LABS: Vitamin B12 > 1000 pg/mL (239-931)
== END 2024-07-10 23:59 | disposition home or self-care (01) ==
LOC: LAB.DROPOF 07-11 11:10
PROVIDERS: PCP Nurse Practitioner Family; Visit Provider Nurse Practitioner Family
DX: E55.9 Vitamin D deficiency, unspecified (principal); E53.8 Deficiency of other specified B group vitamins; E10.9 Type 1 diabetes mellitus without complications; E66.9 Obesity, unspecified; E78.5 Hyperlipidemia, unspecified; F33.9 Major depressive disorder, recurrent, unspecified; F41.1 Generalized anxiety disorder; G47.19 Other hypersomnia; G47.33 Obstructive sleep apnea (adult) (pediatric); G56.03 Carpal tunnel syndrome, bilateral upper limbs; G62.9 Polyneuropathy, unspecified; G89.4 Chronic pain syndrome; I10 Essential (primary) hypertension; M10.9 Gout, unspecified; M51.16 Intervertebral disc disorders with radiculopathy, lumbar region; M50.10 Cervical disc disorder with radiculopathy, unspecified cervical region
CPT/HCPCS: 80053; 80061; 81001; 82043; 82306; 82570; 82607; 82728; 83036; 83540; 83550; 84156; 84439; 84443; 84550; 85025; 87086

== ENCOUNTER 2024-08-22 13:36 | Outpatient (POV) | payer OTHER, SELFPAY ==
--- OUTSIDE RECORDS SUMMARY | 2024-08-22 13:47 | XMS_ITS | Clinical Summary ---
Author Organization [facility] Address [address] [place] [address] Care Team Providers Care Bread Oven Operator Name Role Phone Myles Segovia MD Primary Care Provider [phone] Family History Medical History Relation Name Comments Liver disease Father Diabetes Maternal Grandfather Diabetes Maternal Grandmother Relation Name Status Comments Father Maternal Grandfather Maternal Grandmother Social History Tobacco Use Types Packs/Day Years Used Date Smoking Tobacco: Never Alcohol Use Standard Drinks/Week Comments No 0 (1 standard drink = 0.6 oz pur e alcohol) Sex and Gender Information Value Date Recorded Sex Assigned at Not on file Legal Sex Male 8:42 PM EDT Gender Identity Not on file Sexual Orientation Not on file Last Filed Vital Signs Vital Sign Reading Time Taken Comments Blood Pressure - - Pulse - - Temperature - - Respiratory Rate - - Oxygen Saturation - - Inhaled Oxygen Concentration - - Weight 108 kg (237 lb 7 oz) 12/16/2015 7:[address] Height 180.3 cm (5' 11 ) 07/23/2014 1:15 PM EDT Body Mass Index 33.12 07/23/2014 1:15 PM EDT Plan of Treatment Health Maintenance Due Date Last Done Comments [facility]-Depression Screening 1975 [facility]-HIV Screening 1975 [facility]-Hepatitis C Screening 1975 [facility]-Infant/Child/Adol SDOH Screenings 1975 [facility]- SDOH Screenings 1994 [facility]-Adult SDOH Screenings 1994 [facility]-Hepatitis B Vaccines (1 of 3 - 19+ 3-dose series) 08/28/1995 CT Colonography 2021 Colonoscopy 2021 FIT-DNA 2021 FIT 2021 FOBT 2021 Sigmoidoscopy 2021 [facility]-Colorectal Cancer Screening 2021 [id number] Vaccine (2 - season) 2023 05/14/2020 [facility]-Influenza Vaccine (#1) 2024 11/26/2019 [facility]-Zoster Vaccines (1 of 2) 2026 [facility]-DTaP,Tdap,and Td Vaccine s (3 - Td or Tdap) 11/27/2028 11/27/2018, 09/20/2018 [facility]-Hepatitis A Vaccines Aged Out 019, 01/05/2018 No longer eligible based on patient's age to complete this topic HPV Vaccines Aged Out No longer eligi ble based on patient's age to complete this topic [facility]-HIB Vaccines Aged Out No longer e ligible based on patient's age to complete this topic [facility]-IPV Vaccines Aged Out No longer e ligible based on patient's age to complete this topic [facility]-Pneumococcal Vaccine: Pediatrics (0 to 5 Years) and At-Risk Patients (6 to 49 Years) Aged Out No longer eligible b ased on patient's age to complete this topic [facility]-Rotavirus Vaccines Aged Out No lo nger eligible based on patient's age to complete this topic Insurance [place] [id number] [facility] Care Teams Bread Oven Operator Relationship Specialty Start Date End Date Myles Segovia MD [address] [place] [address] PCP - General 06/20/20
--- OUTSIDE RECORDS SUMMARY | 2024-08-22 13:47 | XMS_ITS | Referral Summary ---
Author Organization [employer] ([place], [place], [place], [place]) Address [address] [place] [address] Care Team Providers Care Remote Computer Terminal Operator Name Role Phone Unavailable Primary Care Provider Unavailabl e Active Problems Problem Noted Date Diagnosed Date Encounter for general adult medical examination without abnormal findings 08/16/2023 08/16/2023 Social History Tobacco Use Types Packs/Day Years Used Date Smoking Tobacco: Never Assessed Food Insecurity Answer Date Recorded Food run out past 12 months Not on file 07/08 Food did not last past 12 months Not on file 07/27/2023 Employment Answer Date Recorded Help finding and keeping a job Not on file 0 07/27/2023 Family and Community Support Answer Danny e Recorded Help with Day to Day Activities Not on file 07/27/2023 Feeling Lonely or Isolated Not on file 07/26 Educational Attainment Answer Date Sergey rded Speak language other than Greenlandic at home Not on file 07/27/2023 Want help with school or training Not on file 07/27/2023 Substance Use Answer Date Recorded Used prescription meds for non-medical reasons N ot on file 07/27/2023 Used illegal drugs past 12 months Not on file 07/27/2023 Sex and Gender Information Value Date Recorded Sex Assigned at Male 05/04/2022 4:36 PM CDT Legal Sex Male 5:54 PM CDT Gender Identity Male 05/04/2022 4:36 PM CDT Sexual Orientation Not on file Plan of Treatment Not on file Insurance [employer]
--- OUTSIDE RECORDS SUMMARY | 2024-08-22 13:47 | XMS_ITS | Clinical Summary ---
Author Organization [employer] ([place], [place], [place], [place]) Address [address] [place] [address] Care Team Providers Care Plant Mechanic Name Role Phone Unavailable Primary Care Provider [...] Date Sergey rded Speak language other than Latvian at home Not on file 07/27/2023 Want [...] Orientation Not on file Plan of Treatment Health Maintenance Due Date Last Done Comments CT Colonography 1975 Colonoscopy 1975 Colorectal Cancer Screening 1976 FOBT/FIT 1976 Fit-DNA (Cologuard) 1975 Sigmoidoscopy 1975 Depression Screening (12+) 1988 Tobacco Cessation Counseling and Screening (12+) 1988 COVID-19 VACCINE (2 - 2023-2 5 season) 2023 05/14/2020 Influenza Vaccine (#1) 2024 DTAP/TDAP/TD VACCINES (3 - T d or Tdap) 11/27/2028 11/27/2018, 09/20/2018 Pneumococcal Vaccine: 0-49 Years Aged Out No longer eligible b ased on patient's age to complete this topic Insurance
[2024-08-22 14:41] VITALS: BP 126/71; PULSE 105; RESP 14; O2SAT 95; BMI 39.6
--- NOTE | 2024-08-22 16:32 | EXP.PAIN.SOA ---
[facility] Disclaimer: The information contained in this section may have been updated after the patient was seen, as this information can be updated by other users. Medical History Closed fracture of distal end of left tibia Status post ORIF BMI 38.0-38.9,adult BMI 40.0-44.9, adult Advised to follow-up with PCP to discuss weight loss therapy. Herpes zoster dermatitis Generalized anxiety disorder Hypersomnia Dyspnea on exertion Restrictive lung disease ILD (interstitial lung disease) BMI 37.0-37.9, adult Ankle pain Vitamin D deficiency Depression Arthritis Vitamin B12 deficiency Hyperlipidemia DDD (degenerative disc disease) Major depressive disorder HTN (hypertension) Abnormal electrocardiography Sinus tachycardia Knee swelling Knee pain Removal of gregorio Head injury Scalp laceration Sinus pressure Surgical History History of colonoscopy History of vasectomy Family History Other Family history of cancer Family history of diabetes mellitus type I Prostate cancer Social History Smoking Status: Never smoker alcohol intake: never substance use type: denies use current occupational status: other Travel in the last 8 weeks?: None household members: family housing: house marital status: number of children: 2 education level: high school service: No group home: No current occupational exposures/hazards: Yes caffeine: Yes special reed needs: No agree to transfusion: No do you feel safe at home: Yes victim of physical abuse: No victim of emotional abuse: No victim of sexual abuse: No would you like helpful sources: No PM Subjective & Objective Subjective Subjective:: Patient is a pleasant 48-year-old male who presents to our office for worsening back and neck pain. He rates his pain an 8 out of 10. Patient did see our office back in 2023 and did have A lumbar epidural L4-L5 that provided 50% relief however really only lasted while he was nice and numb for about 3 hours. Patient states that he is still that same pain we saw him for previously. Patient had at the last visit been discussed the possibility of a pump to help with his chronic neck and back however he states with the work he does he does not think that would be a good option. Patient has continued conservative treatment with minimal changes. He does state that his primary care did give him some muscle relaxers and those have seemed to help some. Patient is interested in any options we may be able to provide. His Marcin has been reviewed and is appropriate. Review of Systems: General: No recent weight changes, no fever, no sleep disturbances Respiratory: No cough, no shortness of air, no recurring pulmonary infections Cardiovascular/peripheral vascular: No chest pain, no palpitations, no edema, no shortness of breath Gastrointestinal: No new onset incontinence, normal bowel movements reported Genitourinary: No new onset incontinence Musculoskeletal: Back pain, neck pain Psychiatric: [Normal mood/affect] Neurological: [Denies weakness in extremities], [denies balance issues] Pain at rest (0-10 scale): 8 Objective Objective:: Physical Exam: General: Alert and oriented x3, no acute distress, pleasant and cooperative Lungs: Respirations even and unlabored, symmetrical chest expansion Eyes: PERRL Musculoskeletal: Flexion and extension of lumbar [spine] somewhat guarded secondary to pain Neurological: Speech clear, no gross sensory deficit Has patient had previous pain injection?: No Conservative treatment options previously tried: Home exercise plan Length of treatment: Longer than 12 weeks Meds Home Medications and Allergies Home Medications ?Medication ?Instructions ?Recorded ?Confirmed ?Type blood sugar diagnostic (Accu-Chek #100 08/30/23 08/22/24 Rx Sherrill Plus test strips) blood-glucose meter #1 08/30/23 08/22/24 Rx blood-glucose sensor (Dexcom G6 #3 08/30/23 08/22/24 Rx Sensor device) blood-glucose transmitter (Dexcom #1 08/30/23 08/22/24 Rx G6 Transmitter device) blood-glucose,lumber piler,cont #1 08/30/23 08/22/24 Rx (Dexcom G6 Elevator Service Technician) lancets (Accu-Chek Fastclix Lancet #200 08/30/23 08/22/24 Rx Drum) omega-3 acid ethyl esters 1 gram 2 cap PO DAILY #180 caps 08/30/23 08/22/24 Rx capsule sour guardado extract 1,000 mg 1,200 mg (1.2 x 1,000 mg) PO DAILY 08/30/23 08/22/24 Rx capsule (Tart Guardado Extract) . #90 caps pen needle, diabetic 32 gauge x #100 ea 01/19/24 08/22/24 Rx 1/4 (BD Ultra-Fine Micro Pen Needle) insulin pump cart,auto,BT,G6/L #30 ea 01/27/24 08/22/24 Rx (Omnipod 5 (G6/Gwyn 2 Plus) subcutaneous cartridge) insulin syringe,safety needle 1 mL #100 ea 03/07/24 08/22/24 Rx 30 gauge x 1/2 nifedipine 30 mg tablet,extended 30 mg PO BID #180 tabs 05/02/24 08/22/24 Rx release 24 hr insulin regular human 100 unit/mL 1 sliding scale dose SQ 05/10/24 08/22/24 History injection solution cartridge USEASDIRECTD fluticasone propionate 50 1 spray intranasal DIRECTED PRN 06/01/24 08/22/24 History mcg/actuation nasal Allergy Symptoms spray,suspension insulin pump cart,auto,BT,G6/7 #5 ea 06/01/24 08/22/24 History (Omnipod 5 G6-G7 Pods (Gen 5) subcutaneous cartridge) multivitamin 1 tab PO DAILY 06/01/24 08/22/24 History simvastatin 5 mg tablet 5 mg PO HS 06/01/24 08/22/24 History ondansetron 8 mg disintegrating 8 mg PO Q8H PRN nausea and 06/14/24 08/22/24 Rx tablet vomiting #20 tabs glucagon 1 mg solution for 1 mg SQ Q20M PRN hypoglycemia #1 ea 06/18/24 08/22/24 Rx injection (Glucagon Emergency Kit) Ultra-Thin II Ins Pen Baldwyn 29 #100 ea 07/10/24 08/22/24 Rx gauge x 1/2 (pen needle, diabetic) cyclobenzaprine 10 mg tablet 10 mg PO BID PRN muscle spasm #60 07/10/24 08/22/24 Rx tabs diclofenac sodium 75 mg 75 mg PO BID #60 tabs 07/10/24 08/22/24 Rx tablet,delayed release insulin glargine 100 unit/mL (3 70 unit (0.7 mL) SQ HS #15 mL 07/10/24 08/22/24 Rx mL) subcutaneous pen (Lantus Solostar U-100 Insulin) cetirizine 10 mg tablet See Rx Instructions .Route 08/18/24 08/22/24 Rx .COMPLEX #90 tabs fenofibrate nanocrystallized 145 See Rx Instructions .Route 08/18/24 08/22/24 Rx mg tablet .COMPLEX #90 tabs furosemide 40 mg tablet See Rx Instructions .Route 08/18/24 08/22/24 Rx .COMPLEX #90 tabs isosorbide mononitrate 30 mg See Rx Instructions .Route 08/18/24 08/22/24 Rx tablet,extended release 24 hr .COMPLEX #90 tabs losartan 50 mg tablet See Rx Instructions .Route 08/18/24 08/22/24 Rx .COMPLEX #90 tabs pantoprazole 40 mg tablet,delayed See Rx Instructions .Route 08/18/24 08/22/24 Rx release .COMPLEX #90 tabs cholecalciferol (vitamin D3) 50 See Rx Instructions .Route 08/19/24 08/22/24 Rx mcg (2,000 unit) capsule .COMPLEX #90 caps empagliflozin 10 mg tablet See Rx Instructions .Route 08/19/24 08/22/24 Rx (Jardiance) .COMPLEX #90 tabs New Prescriptions to Start Prescriptions: Allergies Allergy/AdvReac Type Severity Reaction Status Date / Time Penicillins Allergy Intermediate Rash Verified 08/22/24 13:04 metoprolol AdvReac Mild nausea Verified 08/22/24 13:04 bisoprolol AdvReac lowered Verified 08/22/24 13:04 sugar level Assessment and Plan *Assessment and plan (1) Degenerative disc disease, cervical: Status: Acute Category: Medical Code(s): M50.30 - Other cervical disc degeneration, unspecified cervical region (2) Degenerative disc disease, lumbar: Status: Acute Category: Medical Code(s): M51.369 - Other intervertebral disc degeneration, lumbar region without mention of lumbar back pain or lower extremity pain (3) Cervical radiculopathy: Status: Acute Category: Medical Code(s): M54.12 - Radiculopathy, cervical region (4) Lumbar radiculopathy: Status: Acute Category: Medical Code(s): M54.16 - Radiculopathy, lumbar region Plan I did discuss with the patient that we would still be offering the same interventions as we did last year such as injection therapy. I did discuss with him that he still would be a beneficial candidate of a spinal cord stimulator or a pump trial in future. Patient does have hesitation regarding this. We did discuss that it is completely at his discretion. I will send in a prescription of lidocaine 5% patches and follow-up with him in 2 weeks. Patient agrees with this plan of care. Patient has been instructed to contact the clinic with any concerns before the next appointment. Dr. Flowers has reviewed this note and agrees with this plan of care. This note was dictated using voice recognition software and make contain errors or omissions. All injections are used with Lidocaine, Bupivacaine and dexamethasone. Occasionally urine drug screen is needed to verify patient's compliance with our office pain contract. This is ordered based off specific treatments related to chronic pain with the potential to abuse certain medications.
[2024-08-23 08:13] LABS: Testosterone,Total 523 ng/dL (264-916)
[2024-08-25 07:57] LABS: Testosterone,Free 4.3 pg/mL (6.8-21.5)
== END 2024-08-22 23:59 | disposition home or self-care (01) ==
PROVIDERS: Physician Assistant; PCP Nurse Practitioner Family; Visit Provider Nurse Practitioner Family
DX: M50.10 Cervical disc disorder with radiculopathy, unspecified cervical region (principal); M51.16 Intervertebral disc disorders with radiculopathy, lumbar region
CPT/HCPCS: 36415; 84402; 84403; 93225; 93227; 99212; G0463

== ENCOUNTER 2024-09-06 08:30 | Outpatient (POV) | payer OTHER, SELFPAY ==
--- OUTSIDE RECORDS SUMMARY | 2024-05-12 17:30 | XMS_ITS ---
Author Organization [facility] Address [address] [place] [address] Care Team Providers Care Die Storage Worker Name Role Phone Ayse Gusman Primary Care Provider AYSE GUSMAN Unavailable Unavaila ble Migration, Provider Unavailable Unavailable Allergies Allergen (clinical drug ingredient) Drug/Non Drug Allergy documented on EMR Reaction Allergy Type Onset Date Status Penicillin Unknown Drug Allergy Active REASON FOR VISIT Mult To [facility] Conversion Encounter Medications Medication SIG [...] drug interaction check* 08/31/2021 Active Dexcom G6 Data Entry Specialist - *Please revie w and pick correct strength[facility]ulati [facility]. If intended option is not [...] review and pick correct strength-formulati on from [employer] options. If intended option is not shown, discontinue and re-order from Quick Search* Active Encounters Encounter Location Date Provider Diagnosis [facility] P[facility] [address] [facility] [address] [place] [address] 05/12/2024 Provider Migration Plan Of Treatment Medication [...] *Please review and pick correct strength-formulation from [employer] options. If intended option is not shown, discontinue and re-order from Quick Search* Progress Notes * Raghav ALICIADOB:1975 (49 yo M)Acc No.[id number]:05/12/2024 Patient: Vidal NOEMYSHARLENERaghav Provider: George tyler Migration :1975 A ge:48 Y S ex:Male Date:05/12/2024 Address:[address] [place], [id number] Pcp:Ayse Gusman Subjective: * Chief Complaints: * [...] and drug interaction check*, Taking Dexcom G6 Data Entry Specialist - , Notes to Pharmacist: *Please [...] Electronic signature of Brigido lazo Migration on 09/06/2024 at 08:37 AM EDT Sign off status: Pending * Provider: George tyler Migration Date: 0 05/12/2024 Generated for Annabella arteaga/Demetria/Anushaitting on: 0 09/06/2024 08:37 AM EDT
--- OUTSIDE RECORDS SUMMARY | 2024-09-06 08:37 | XMS_ITS | Patient Health Record ---
Author Organization [facility] Address [address] [place] [address] Care Team Providers Care Habitat Management Coordinator Name Role Phone Ayse Gusman Primary Care Provider AYSE GUSMAN Unavailable Unavaila ble Migration, Provider Unavailable Unavailable Allergies Allergen (clinical drug ingredient) Drug/Non Drug Allergy documented on EMR Reaction Allergy Type Onset Date Status Penicillin Unknown Drug Allergy Active Reason For Referral No Information Medications Medication SIG (Take, Route, Frequency, Duration) Notes Start Date End Date Status Diclofenac Sodium 75 MG 1 tab(s) orally 2 times a day; Duration: 90 days Active Centrum Men - 1 tab(s) orally once a day; Duration: 30 day(s) Active LEVEMIR 100 UNITS/ML 90 UNITS SUBCUTANEOUSLY ONCE A DAY; Duration: 90 DAYS *Please review for potential replacement for e-prescription and drug interaction check* Active Lisinopril 10 MG 1 tab(s) orally once a day; Duration: 90 days Active DULoxetine HCl 60 MG 1 cap(s) orally once a day; Duration: 30 day(s) Betsy Tobias Active NovoLOG FlexPen 100 UNIT/ML 40 units subcutaneously 3 times a day (before meals); Duration: 90 days Active Simvastatin 5 MG 1 tab(s) orally once a day (at bedtime); Duration: 90 days Active Vitamin D3 1250 MCG 1 CAP(S) ORALLY ONCE A WEEK; Duration: 90 DAYS 2500mcg *Please review and pick correct strength-formulati on from [employer] options. If intended option is not shown, discontinue and re-order from Quick Search* Active DEXCOM G6 SENSOR 3 PACK BLOOD-GLUCOSE SENSOR - *Please review for potential replacement for e-prescription and drug interaction check* 08/31/2021 Active Dexcom G6 Respiratory Director - *Please revie w and pick correct strength-formulati on from [employer] options. If intended option is not shown, discontinue and re-order from Quick Search* 08/31/2021 Active Allopurinol 300 MG 1 tab(s) orally once a day; Duration: 90 days Active DEXCOM G6 BLOOD-GLUCOSE TRANSMITTER - *Please review for potential replacement for e-prescription and drug interaction check* 08/31/2021 Active B-12 2500 MCG 1 tab(s) sublinguall y once a day; Duration: 90 days Active Social History Tobacco Use: Social History Observation Description Date Details (start date - stop date) Never Smoker NA - NA Smoking: Question Answer Notes Are you a: nonsmoker Problems Problem Type SNOMED Code ICD Code Onset Dates Problem Status W/U Status Risk Notes Problem Essential hypertension (36090816) HTN (hypertension), benign (I10) Active confirmed Problem Chronic pain (45520985) Other chronic pain (G89.29) Active confirmed Problem Chronic fatigue syndrome (35613477) Chronic fatigue (R53.82) Active confirmed Problem Hyperuricemia (12618000) Hyperuricemia (E79.0) Active confirmed Problem Type I diabetes mellitus without complication (742190572) Type 1 diabetes mellitus without complication (E10.9) Active confirmed Encounters Encounter Location Date Provider Diagnosis [facility] [address] [facility] [address] [facility] [place] [address] 05/12/2024 Provider Migration Plan Of Treatment Pending Test Test Name Order Date W-Vmvm-Objtbtp Antibody Titer 08/24/2021 M-Vitamin B12 08/24/2021 M-Folate 08/24/2021 M-Microalb/Creat Ratio, Randm Ur 022 Insurance Providers Payer Name Payer Address Payer Phone Subscriber Number Group Number Insured Name Patient Relationship to Insured Coverage Start Date Coverage End Date R P Violetta VIR[place] [id number] [place] [address] [id number] Raghav Alicia Self - patient is the insured Medical (General) History Medical History History ICD Code Diabetic Hyperlipidemia HTN Gout Arthritis Surgical History Surgery Date(Month/Year) vascetomy 2005 Hospitalization History Reason Date(Month/Year) Diabetes 1995
--- OUTSIDE RECORDS SUMMARY | 2024-09-06 08:37 | XMS_ITS | Clinical Summary ---
Author Organization [facility] Address [address] [place] [address] Care Team Providers Care Transformer Assembly Supervisor Name Role Phone Myles Segovia MD Primary Care Provider [phone] Family History Medical History Relation Name Comments [...] 2021 Sigmoidoscopy 2021 [facility]-Colorectal Cancer Screening 2021 [id number] Vaccine (2 - season) 2023 05/14/2020 [facility]-Influenza [...] to complete this topic Insurance [place]ESI[place] [id number] [facility] Care Teams Transformer Assembly Supervisor Relationship Specialty Start Date End Date Myles Segovia MD [address] [place] [address] PCP - General 06/20/20
--- OUTSIDE RECORDS SUMMARY | 2024-09-06 08:37 | XMS_ITS | Referral Summary ---
Author Organization [employer] ([place], [place], [place], [place]) Address [address] [place] [address] Care Team Providers Care Licensing Registration Examiner Name Role Phone Unavailable Primary Care Provider [...] Date Sergey rded Speak language other than Korean at home Not on file 07/27/2023 Want [...]
--- OUTSIDE RECORDS SUMMARY | 2024-09-06 08:37 | XMS_ITS | Clinical Summary ---
Author Organization [employer] [facility] ([place], [place], [place], [place]) Address [address] [place] [address] Care Team Providers Care Field Sales Specialist Name Role Phone Unavailable Primary Care Provider [...] Date Sergey rded Speak language other than Spanish at home Not on file 07/27/2023 Want [...] patient's age to complete [place] [address]
[2024-09-06 09:50] VITALS: BP 120/71; PULSE 81; RESP 14; O2SAT 95; BMI 39.0
--- NOTE | 2024-09-06 10:21 | EXP.PAIN.SOA ---
[facility] Disclaimer: The information contained in this section may have been updated after the patient was seen, as this information can be updated by other users. Medical History Closed fracture of distal end of left tibia Status post ORIF BMI 38.0-38.9,adult BMI 40.0-44.9, adult Advised to follow-up with PCP to discuss weight loss therapy. Herpes zoster dermatitis Generalized anxiety disorder Hypersomnia Dyspnea on exertion Restrictive lung disease ILD (interstitial lung disease) BMI 37.0-37.9, adult Ankle pain Vitamin D deficiency Depression Arthritis Vitamin B12 deficiency Hyperlipidemia DDD (degenerative disc disease) Major depressive disorder HTN (hypertension) Abnormal electrocardiography Sinus tachycardia Knee swelling Knee pain Removal of gregorio Head injury Scalp laceration Sinus pressure Surgical History History of colonoscopy History of vasectomy Family History Other Family history of cancer Family history of diabetes mellitus type I Prostate cancer Social History Smoking Status: Never smoker alcohol intake: never substance use type: denies use current occupational status: other Travel in the last 8 weeks?: None household members: family housing: house marital status: number of children: 2 education level: high school service: No detention: No current occupational exposures/hazards: Yes caffeine: Yes special reed needs: No agree to transfusion: No do you feel safe at home: Yes victim of physical abuse: No victim of emotional abuse: No victim of sexual abuse: No would you like helpful sources: No PM Subjective & Objective Subjective Subjective:: Patient is a pleasant 49-year-old male who presents today for 2-week follow-up. Patient did get the lidocaine patches and he did state that they may help however with the weather like it he is he sweats too much and they just slide off. Patient does state it still the same pain he has been dealing with and rates it today a 9 out of 10. He states the pain is all in his low back and radiates down his legs. Patient did previously have an epidural back in 2023 that did provide 50% relief but only lasted about 3 hours. Patient does state due to that only temporary relief he is interested in other options. Patient states the pain is constant and does interfere with his ability perform activities of daily living such as cooking and cleaning. Patient does state from our last discussion that he has thought more about the stimulator or the pump and would like to proceed forward with the stimulator trial. His Marcin has been reviewed and is appropriate. Review of Systems: General: No recent weight changes, no fever, no sleep disturbances Respiratory: No cough, no shortness of air, no recurring pulmonary infections Cardiovascular/peripheral vascular: No chest pain, no palpitations, no edema, no shortness of breath Gastrointestinal: No new onset incontinence, normal bowel movements reported Genitourinary: No new onset incontinence Musculoskeletal: Chronic back pain, leg pain Psychiatric: [Normal mood/affect] Neurological: [Denies weakness in extremities], [denies balance issues] Pain at rest (0-10 scale): 9 Objective Objective:: Physical Exam: General: Alert and oriented x3, no acute distress, pleasant and cooperative Lungs: Respirations even and unlabored, symmetrical chest expansion Eyes: PERRL Musculoskeletal: Flexion and extension of lumbar [spine] somewhat guarded secondary to pain, [antalgic gait noted] Neurological: Speech clear, no gross sensory deficit Has patient had previous pain injection?: No Conservative treatment options previously tried: Home exercise plan Length of treatment: Longer than 12 weeks Meds Home Medications and Allergies Home Medications ?Medication ?Instructions ?Recorded ?Confirmed ?Type blood sugar diagnostic (Accu-Chek #100 ea 08/30/23 09/06/24 Rx Sherrill Plus test strips) blood-glucose meter #1 ea 08/30/23 09/06/24 Rx blood-glucose sensor (Dexcom G6 #3 ea 08/30/23 09/06/24 Rx Sensor device) blood-glucose transmitter (Dexcom #1 ea 08/30/23 09/06/24 Rx G6 Transmitter device) blood-glucose,chief of production,cont #1 ea 08/30/23 09/06/24 Rx (Dexcom G6 Medical Assembly) lancets (Accu-Chek Fastclix Lancet #200 ea 08/30/23 09/06/24 Rx Drum) omega-3 acid ethyl esters 1 gram 2 cap PO DAILY #180 caps 08/30/23 09/06/24 Rx capsule sour massey extract 1,000 mg 1,200 mg (1.2 x 1,000 mg) PO DAILY 08/30/23 09/06/24 Rx capsule (Tart Massey Extract) . #90 caps pen needle, diabetic 32 gauge x #100 ea 01/19/24 09/06/24 Rx 1/4 (BD Ultra-Fine Micro Pen Needle) insulin pump cart,auto,BT,G6/L #30 ea 01/27/24 09/06/24 Rx (Omnipod 5 (G6/Gwyn 2 Plus) subcutaneous cartridge) insulin syringe,safety needle 1 mL #100 ea 03/07/24 09/06/24 Rx 30 gauge x 1/2 nifedipine 30 mg tablet,extended 30 mg PO BID #180 tabs 05/02/24 09/06/24 Rx release 24 hr insulin regular human 100 unit/mL 1 sliding scale dose SQ 05/10/24 09/06/24 History injection solution cartridge USEASDIRECTD fluticasone propionate 50 1 spray intranasal DIRECTED PRN 06/01/24 09/06/24 History mcg/actuation nasal Allergy Symptoms spray,suspension insulin pump cart,auto,BT,G6/7 #5 ea 06/01/24 09/06/24 History (Omnipod 5 G6-G7 Pods (Gen 5) subcutaneous cartridge) multivitamin 1 tab PO DAILY 06/01/24 09/06/24 History simvastatin 5 mg tablet 5 mg PO HS 06/01/24 09/06/24 History ondansetron 8 mg disintegrating 8 mg PO Q8H PRN nausea and 06/14/24 09/06/24 Rx tablet vomiting #20 tabs glucagon 1 mg solution for 1 mg SQ Q20M PRN hypoglycemia #1 ea 06/18/24 09/06/24 Rx injection (Glucagon Emergency Kit) Ultra-Thin II Ins Pen Guthrie 29 #100 ea 07/10/24 09/06/24 Rx gauge x 1/2 (pen needle, diabetic) cyclobenzaprine 10 mg tablet 10 mg PO BID PRN muscle spasm #60 07/10/24 09/06/24 Rx tabs diclofenac sodium 75 mg 75 mg PO BID #60 tabs 07/10/24 09/06/24 Rx tablet,delayed release insulin glargine 100 unit/mL (3 70 unit (0.7 mL) SQ HS #15 mL 07/10/24 09/06/24 Rx mL) subcutaneous pen (Lantus Solostar U-100 Insulin) cetirizine 10 mg tablet See Rx Instructions .Route 08/18/24 09/06/24 Rx .COMPLEX #90 tabs fenofibrate nanocrystallized 145 See Rx Instructions .Route 08/18/24 09/06/24 Rx mg tablet .COMPLEX #90 tabs furosemide 40 mg tablet See Rx Instructions .Route 08/18/24 09/06/24 Rx .COMPLEX #90 tabs isosorbide mononitrate 30 mg See Rx Instructions .Route 08/18/24 09/06/24 Rx tablet,extended release 24 hr .COMPLEX #90 tabs losartan 50 mg tablet See Rx Instructions .Route 08/18/24 09/06/24 Rx .COMPLEX #90 tabs pantoprazole 40 mg tablet,delayed See Rx Instructions .Route 08/18/24 09/06/24 Rx release .COMPLEX #90 tabs cholecalciferol (vitamin D3) 50 See Rx Instructions .Route 08/19/24 09/06/24 Rx mcg (2,000 unit) capsule .COMPLEX #90 caps empagliflozin 10 mg tablet See Rx Instructions .Route 08/19/24 09/06/24 Rx (Jardiance) .COMPLEX #90 tabs lidocaine 5 % topical patch 1 patch topical DAILY #30 ea 08/22/24 09/06/24 Rx New Prescriptions to Start Prescriptions: Allergies Allergy/AdvReac Type Severity Reaction Status Date / Time Penicillins Allergy Intermediate Rash Verified 09/06/24 09:55 metoprolol AdvReac Mild nausea Verified 09/06/24 09:55 bisoprolol AdvReac lowered Verified 09/06/24 09:55 sugar level Assessment and Plan *Assessment and plan (1) Lumbar radiculopathy: Status: Acute Category: Medical Code(s): M54.16 - Radiculopathy, lumbar region (2) Chronic low back pain: Status: Acute Qualifiers: Back pain laterality: bilateral Sciatica presence: without sciatica Qualified Code(s): M54.50 - Low back pain, unspecified; G89.29 - Other chronic pain Category: Medical Code(s): M54.50 - Low back pain, unspecified; G89.29 - Other chronic pain Plan I did discuss with him regarding the risk and benefits of the spinal cord stimulator trial and he would like to proceed forward with this plan of care. Patient will be ordered a psychological evaluation and if he is deemed an appropriate candidate we will proceed forward with the trial at a later date. I did also discuss with patient due to not having recent imaging within the last 6 months I will put in a x-ray order of his lumbar spine with the plan to proceed forward with MRI without contrast of his lumbar spine and we will plan on sending him to neurosurgery for consult. Patient agrees with this plan of care. Patient will return to clinic in 1 month for reevaluation of symptoms and plan of care. Patient has been instructed to contact the clinic with any concerns before the next appointment. Dr. Flowers has reviewed this note and agrees with this plan of care. This note was dictated using voice recognition software and make contain errors or omissions. All injections are used with Lidocaine, Bupivacaine and dexamethasone. Occasionally urine drug screen is needed to verify patient's compliance with our office pain contract. This is ordered based off specific treatments related to chronic pain with the potential to abuse certain medications.
== END 2024-09-06 23:59 | disposition home or self-care (01) ==
LOC: SC.PAIN 08:31 → RT 09:26 → SC.PAIN 09:48
PROVIDERS: PCP Nurse Practitioner Family; Visit Provider Physician Assistant
DX: M54.16 Radiculopathy, lumbar region (principal); G89.29 Other chronic pain
CPT/HCPCS: 93270; 99212; G0463

== ENCOUNTER 2024-09-07 07:45 | Outpatient (CLI) | payer OTHER, SELFPAY ==
--- OUTSIDE RECORDS SUMMARY | 2024-05-12 17:30 | XMS_ITS ---
Author Organization [facility] Address [address] [place] [address] Care Team Providers Care Manager Real Estate Name Role Phone Ayse Gusman Primary Care Provider [phone] AYSE GUSMAN Unavailable Unavaila ble Migration, Provider Unavailable Unavailable Allergies Allergen (clinical drug ingredient) Drug/Non Drug Allergy documented on EMR Reaction Allergy Type Onset Date Status Penicillin Unknown Drug Allergy Active REASON FOR VISIT Mult To [facility] Conversion Encounter Medications Medication SIG (Take, Route, [...] drug interaction check* 08/31/2021 Active Dexcom G6 Rn Social Work - *Please revie w and pick correct strength-formulati on [facility] options. If intended option is [...] review and pick correct strength-formulati on from [employer] options. If intended option is not shown, discontinue and re-order from Quick Search* Active Encounters Encounter Location Date Provider Diagnosis [facility] [address] [facility] [address] [place] [address] 05/12/2024 Provider Migration Plan Of Treatment Medication [...] *Please review and pick correct strength-formulation from [employer] options. If intended option is not shown, discontinue and re-order from Quick Search* Progress Notes * Raghav ALICIADOB:1975 (49 yo M)Acc No.[id number]:05/12/2024 Patient: Vidal NOEMYSHARLENERaghav Provider: George tyler Migration :1975 A ge:48 Y S ex:Male Date:05/12/2024 Address:[address], [id number] Pcp:Ayse Gusman Subjective: * Chief Complaints: * [...] and drug interaction check*, Taking Dexcom G6 Rn Social Work - , Notes to Pharmacist: *Please review [...] Electronic signature of Brigido lazo Migration on 09/07/2024 at 07:47 AM EDT Sign off status: Pending * Provider: George tyler Migration Date: 0 05/12/2024 Generated for Annabella arteaga/Demetria/Anushaitting on: 0 09/07/2024 07:47 AM EDT
--- OUTSIDE RECORDS SUMMARY | 2024-09-07 07:47 | XMS_ITS | Referral Summary ---
Author Organization [employer] ([place], [place], [place], [place]) Address [address] [place] [address] Care Team Providers Care Precision Inspector Name Role Phone Unavailable Primary Care Provider [...] Date Sergey rded Speak language other than Khmer at home Not on file 07/27/2023 Want [...]
--- OUTSIDE RECORDS SUMMARY | 2024-09-07 07:47 | XMS_ITS | Clinical Summary ---
Author Organization [employer] ([place], [place], [place], [place]) Address [address] [place] [address] Care Team Providers Care Superintendent Menagerie Name Role Phone Unavailable Primary Care Provider [...] Date Sergey rded Speak language other than Pashto at home Not on file 07/27/2023 Want [...]
--- OUTSIDE RECORDS SUMMARY | 2024-09-07 07:47 | XMS_ITS | Clinical Summary ---
Author Organization [facility] Address [address] [place] [address] Care Team Providers Care Food Crops Farm Hand Name Role Phone Myles Segovia MD Primary Care Provider Family History Medical History Relation Name Comments [...] [facility]-HIV Screening 1976 [facility]-Hepatitis C Screening 1976 [facility]-/Child/Adol SDOH Screenings 1976 [facility]- SDOH Screenings 1994 [facility]-Adult SDOH Screenings 1994 [facility]-Hepatitis B Vaccines (1 of 3 - 19+ 3-dose series) 08/28/1995 CT Colonography 2021 Colonoscopy 2021 FIT-DNA 2021 FIT 2021 FOBT 2021 Sigmoidoscopy 2021 [facility]-Colorectal Cancer Screening 2021 [id number] Vaccine (2 - season) 2023 05/14/2020 [facility]-Influenza [...] to complete this topic Insurance [place] [id number] [facility] Care Teams Food Crops Farm Hand Relationship Specialty Start Date End Date Myles Segovia MD [address] [place] [address] PCP - General 06/20/20
--- OUTSIDE RECORDS SUMMARY | 2024-09-07 07:47 | XMS_ITS | Patient Health Record ---
Author Organization [facility] Address [address] [place] [address] Care Team Providers Care Administrative Services Assistant Name Role Phone Ayse Gusman Primary Care [...] drug interaction check* 08/31/2021 Active Dexcom G6 Advertising Assistant Manager - *Please revie w and pick correct [...] W/U Status Risk Notes Problem Essential hypertension (45808321) HTN (hypertension), benign (I10) Active confirmed Problem Chronic pain (09553408) Other chronic pain (G89.29) Active confirmed Problem Chronic fatigue syndrome (19751700) Chronic fatigue (R53.82) Active confirmed Problem Hyperuricemia (45351023) Hyperuricemia (E79.0) Active confirmed Problem Type I diabetes mellitus without complication (319752160) Type 1 diabetes mellitus without complication (E10.9) Active confirmed Encounters Encounter Location Date Provider Diagnosis [facility] P[facility] [address] [facility] [address] [facility] [place] [address] 05/12/2024 Provider Migration Plan Of Treatment Pending Test Test Name Order Date K-Kcrm-Ukxrkfd Antibody Titer 08/24/2021 M-Vitamin B12 08/24/2021 M-Folate 08/24/2021 M-Microalb/Creat Ratio, Randm Ur 022 Insurance Providers Payer Name Payer Address Payer Phone Subscriber Number Group Number Insured Name Patient Relationship to Insured Coverage Start Date Coverage End Date R P Violetta VIRGEN [address] [place] [address] [phone] [id number] [phone] Raghav Alicia Self - patient is the insured Medical (General) History Medical History History ICD Code Diabetic Hyperlipidemia HTN Gout Arthritis Surgical History Surgery Date(Month/Year) vascetomy 2005 Hospitalization History Reason Date(Month/Year) Diabetes 1995
== END 2024-09-07 23:59 | disposition home or self-care (01) ==
LOC: LAB 07:46
PROVIDERS: Physician Assistant; PCP Nurse Practitioner Family; Visit Provider Internal Medicine
DX: I10 Essential (primary) hypertension (principal); R00.2 Palpitations; R07.89 Other chest pain; R06.09 Other forms of dyspnea; R53.82 Chronic fatigue, unspecified; R60.0 Localized edema
CPT/HCPCS: 36415; 84402; 84403

== ENCOUNTER 2024-09-12 11:11 | Outpatient (CLI) | payer OTHER, SELFPAY ==
--- OUTSIDE RECORDS SUMMARY | 2024-09-12 11:14 | XMS_ITS | Clinical Summary ---
Author Organization [facility] Address [address] [place] [address] Care Team Providers Care Box Maker Name Role Phone Myles Segovia MD Primary Care Provider [phone] Family History Medical History Relation Name Comments [...] 2021 Sigmoidoscopy 2021 [facility]-Colorectal Cancer Screening 2021 [id number] Vaccine (2 - season) 2023 05/14/2020 [facility]-Influenza [...] to complete this topic Insurance [place] IGLESIAS [id number] [facility] Care Teams Box Maker Relationship Specialty Start Date End Date Myles Segovia MD [address] [place] [address] PCP - General 06/20/20
--- NOTE | 2024-09-12 11:15 | XR_ITS ---
FINAL REPORT CLINICAL HISTORY: Chronic back pain FINDINGS: LUMBAR SPINE Three views were obtained. There is no acute fracture. There is moderate disc space narrowing at L3-4 and L4-5 with anterior osteophyte formation at these levels. There is no malalignment. IMPRESSION: Degenerative changes as above. Reviewed, Interpreted and Dictated by Cl Corley MD Transcribed by Mitzi Bah Authenticated and [facility]
--- OUTSIDE RECORDS SUMMARY | 2024-09-12 11:15 | XMS_ITS | Clinical Summary ---
Author Organization [employer] ([place], [place], [place], [place]) Address [address] [place] [address] Care Team Providers Care Apartment Community Manager Name Role Phone Unavailable Primary Care Provider [...] Date Sergey rded Speak language other than Azeri at home Not on file 07/27/2023 Want [...]
--- OUTSIDE RECORDS SUMMARY | 2024-09-12 11:15 | XMS_ITS | Referral Summary ---
Author Organization [employer] ([place], [place], [place], [place]) Address [address] [place] [address] Care Team Providers Care Airport Refueling Handler Name Role Phone Unavailable Primary Care Provider [...]
== END 2024-09-12 23:59 | disposition home or self-care (01) ==
LOC: RAD 11:12
PROVIDERS: PCP Nurse Practitioner Family; Visit Provider Nurse Practitioner Family
DX: M51.369 Other intervertebral disc degeneration, lumbar region without mention of lumbar back pain or lower extremity pain (principal); G89.4 Chronic pain syndrome
CPT/HCPCS: 72100

== ENCOUNTER 2024-10-05 08:50 | Outpatient (CLI) | payer OTHER, SELFPAY ==
[2024-10-05 10:43] LABS: Chloride 105 mmol/L (98-107); Potassium 4.5 mmoL/L (3.5-5.1); Sodium 138 mmol/L (136-145)
[2024-10-05 10:46] LABS: Anion Gap 9.5 mEq/L (5-15); Blood Urea Nitrogen 23 mg/dl (9-20); Carbon Dioxide 28 mmol/L (22.0-30.0); Creatinine,Serum 1.00 mg/dl (0.66-1.25); Estimated Glomerular Filt Rate 80 ml/min (>60); GFR (African American) 97 ML/MIN (>60); Total Protein,Serum 6.9 g/dl (6.3-8.2)
[2024-10-05 10:47] LABS: Calcium 9.1 mg/dl (8.4-10.2); Glucose 106 mg/dl (74-100)
[2024-10-09 16:19] LABS: Albumin 3.7 g/dL (2.9-4.4); Alpha-1-Globulin 0.2 g/dL (0.0-0.4); Alpha-2-Globulin 0.7 g/dL (0.4-1.0); Gamma Globulin 1.1 g/dL (0.4-1.8)
== END 2024-10-05 23:59 | disposition home or self-care (01) ==
LOC: LAB 08:51
PROVIDERS: Internal Medicine; PCP Nurse Practitioner Family; Visit Provider Nurse Practitioner
DX: I10 Essential (primary) hypertension (principal); E78.5 Hyperlipidemia, unspecified; R00.2 Palpitations; R07.89 Other chest pain; R53.82 Chronic fatigue, unspecified; R94.31 Abnormal electrocardiogram [ECG] [EKG]; R60.0 Localized edema; R79.89 Other specified abnormal findings of blood chemistry
CPT/HCPCS: 36415; 80048; 82565; 82784; 83521; 84155; 84156; 84165; 84166; 84402; 84403; 84520; 86335

== ENCOUNTER 2024-10-07 10:51 | Outpatient (CLI) | payer OTHER, SELFPAY ==
--- OUTSIDE RECORDS SUMMARY | 2024-05-12 17:30 | XMS_ITS ---
Author Organization [facility] Address [address] [place] [address] Care Team Providers Care Government Relations Manager Name Role Phone Ayse Gusman Primary Care Provider AYSE GUSMAN Unavailable Unavaila ble Migration, Provider Unavailable Unavailable Allergies Allergen (clinical drug ingredient) Drug/Non Drug Allergy documented on EMR Reaction Allergy Type Onset Date Status Information temporarily unavailable Penicillin Unknown Drug Allergy Active [facility] Encounter Medications Medication SIG (Take, Route, [...] drug interaction check* 08/31/2021 Active Dexcom G6 Medical Reception Specialist - *Please revie w and pick correct strength-[facility]ulati [facility]. If intended option is not shown, [...] review and pick correct strength-formulati on from [employer] options. If intended option is not shown, discontinue and re-order from Quick Search* Active Encounters Encounter Location Date Provider Diagnosis [facility] [address] [facility] [address] [place] [address] 05/12/2024 Provider Migration Plan Of Treatment Medication [...] *Please review and pick correct strength-formulation from [employer] options. If intended option is not shown, discontinue and re-order from Quick Search* Progress Notes * Raghav ALICIADOB:1975 (49 yo M)Acc No.[id number]:05/12/2024 Patient: Vidal NOEMYSHARLENE Raghav Provider: P rovider Migration :1975 A ge:48 Y S ex:Male Date:05/12/2024 Address:[place], [id number] Pcp:Ayse Gusman Subjective: * Chief Complaints: * [...] and drug interaction check*, Taking Dexcom G6 Medical Reception Specialist - , Notes to Pharmacist: *Please review and pick correct [facility]. If intended option is not shown, discontinue and re-order from Quick Search*, Taking DEXCOM G6 SENSOR 3 PACK BLOOD-GLUCOSE SENSOR - , Notes to Pharmacist: *Please review for potential replacement for e-prescription and drug interaction check* * Allergies: P enicillin. Objective: * Vitals: Assessment: Plan: * Treatment: * * Electronic signature of Prov violet Migration on 10/07/2024 at 10:53 AM EDT Sign off status: Pending * Provider: George tyler Migration Date: 0 05/12/2024 Generated for Annabella arteaga/Demetria/Anushaitting on: 0 10/07/2024 10:53 AM EDT
--- OUTSIDE RECORDS SUMMARY | 2024-10-07 10:53 | XMS_ITS | Clinical Summary ---
Author Organization [employer] ([place], [place], [place], [place]) Address [address] [place] [address] Care Team Providers Care Broadcast Designer Name Role Phone Unavailable Primary Care Provider [...] Date Sergey rded Speak language other than Urdu at home Not on file 07/27/2023 Want [...]
--- OUTSIDE RECORDS SUMMARY | 2024-10-07 10:53 | XMS_ITS | Referral Summary ---
Author Organization [employer] ([place], [place], [place], [place]) Address [address] [place] [address] Care Team Providers Care Family Preservation Officer Name Role Phone Unavailable Primary Care Provider [...] Date Sergey rded Speak language other than Divehi at home Not on file 07/27/2023 Want [...]
--- OUTSIDE RECORDS SUMMARY | 2024-10-07 10:53 | XMS_ITS | Clinical Summary ---
Author Organization [facility] Address [address] [place] [address] Care Team Providers Care Deep Sea Diver Name Role Phone Myles Segovia MD Primary Care Provider [phone] Family History Medical History Relation Name Comments [...] 2021 Sigmoidoscopy 2021 [facility]-Colorectal Cancer Screening 2021 [id number] Vaccine (2 - season) 2023 05/14/2020 [facility]-Influenza [...] to complete this topic Insurance [place] IGLESIAS [id number] [facility] Care Teams Deep Sea Diver Relationship Specialty Start Date End Date Myles Segovia MD [address] [place] [address] PCP - General 06/20/20
--- OUTSIDE RECORDS SUMMARY | 2024-10-07 10:53 | XMS_ITS | Patient Health Record ---
Author Organization [facility] Address [address] [place] [address] Care Team Providers Care Donor Recruitment Manager Name Role Phone Ayse Gusman Primary Care Provider AYSE GUSMAN Unavailable Unavaila ble Migration, Provider Unavailable Unavailable Allergies Allergen (clinical drug ingredient) Drug/Non Drug Allergy documented on EMR Reaction Allergy Type Onset Date Status Information temporarily unavailable Penicillin Unknown Drug Allergy Active Reason For [...] review and pick correct strength-formulati on from [employer] options. If intended option is not shown, discontinue and re-order from Quick Search* Active DEXCOM G6 SENSOR 3 PACK BLOOD-GLUCOSE SENSOR - *Please review for potential replacement for e-prescription and drug interaction check* 08/31/2021 Active Dexcom G6 Animal Humane Agent Supervisor - *Please revie w and pick correct [...] Problem Status W/U Status Risk Notes Problem Information temporarily unavailable HTN (hypertension), benign (I10) Active confirmed Problem Information temporarily unavailable Other chronic pain (G89.29) Active confirmed Problem Information temporarily unavailable Chronic fatigue (R53.82) Active confirmed Problem Information temporarily unavailable Hyperuricemia (E79.0) Active confirmed Problem Information temporarily unavailable Type 1 diabetes mellitus without complication (E10.9) Active confirmed Encounters Encounter Location Date Provider Diagnosis [facility] [address] [facility] [address] [place] [address] 05/12/2024 Provider Migration Plan Of Treatment Pending Test Test Name Order Date Z-Yfzr-Mkmnyqp Antibody Titer 08/24/2021 M-Vitamin B12 08/24/2021 M-Folate 08/24/2021 M-Microalb/Creat Ratio, Randm Ur 022 Insurance Providers Payer Name Payer Address Payer Phone Subscriber Number Group Number Insured Name Patient Relationship to Insured Coverage Start Date Coverage End Date R P Violetta VIRGEN [address] [place] [address] [id number] [phone] Raghav Alicia Self - patient is the insured Medical (General) History Medical History History ICD Code Diabetic Hyperlipidemia HTN Gout Arthritis Surgical History Surgery Date(Month/Year) vascetomy 2004 Hospitalization History Reason Date(Month/Year) Diabetes 1994
[2024-10-10 16:33] LABS: Albumin, U 24.0 % (.); Alpha-1-Globulin, U 6.5 % (.); Alpha-2-Globulin, U 17.9 % (.); Beta Globulin, U 28.4 % (.); Gamma Globulin, U 23.2 % (.); Prot,24hr calculated 125 mg/24 hr (30-150)
[2024-10-14 11:25] LABS: PDF: SCANNED IMAGE
== END 2024-10-07 23:59 | disposition home or self-care (01) ==
LOC: LAB 10:51
PROVIDERS: PCP Nurse Practitioner Family; Visit Provider Nurse Practitioner
DX: R00.2 Palpitations (principal); R07.89 Other chest pain; R53.83 Other fatigue; I10 Essential (primary) hypertension; E78.5 Hyperlipidemia, unspecified; R06.09 Other forms of dyspnea; R94.31 Abnormal electrocardiogram [ECG] [EKG]; R60.0 Localized edema
CPT/HCPCS: 84156; 84166

== ENCOUNTER 2024-10-19 08:16 | Outpatient (CLI) | payer OTHER, SELFPAY ==
--- NOTE | 2024-10-19 08:23 | XR_ITS ---
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 No fracture is identified. The sinuses are clear. No radiopaque foreign body identified. IMPRESSION: No radiopaque foreign body identified. Reviewed, Interpreted and Dictated by Cee Kee MD Transcribed by Dia Cotter Authenticated and [facility]
--- NOTE | 2024-10-19 10:30 | MR_ITS ---
APPROVED REPORT Community Relations Officer: CLINICAL INDICATION Dyspnea TECHNIQUE Image Acquisition: Cardiac magnetic resonance (CMR) was performed on Siemens Espree MRI 1.5T scanner. Software platform sequences were performed using the Siemens [employer] MR B19 platform. A set of three-plane, low-resolution, large [id number]-mu-[id number] localizers were initially acquired. Then axial, coronal, sagittal TrueFISP, as well as axial HASTE images, were obtained. These were followed by gated TrueFISP breathold cinematic sequences obtained in the short axis with 8 mm slices and 2 mm gaps, 2-chamber (vertical long axis), 3-chamber, 4-chamber (horizontal long axis). A bolus of contrast was injected intravenously with first-pass sequences obtained in the short axis and four-chamber planes. After approximately 10 minutes, a TI respiratory therapy aide sequence was performed to determine the optimal TI time. Using the optimized TI time, delayed contrast enhancement segmented inversion???recovery TurboFLASH sequences were obtained in the short axis, 2-chamber, 3-chamber, and 4-chamber projections. 2D-velocity phase mapping was performed. Functional parameters were calculated by offline analysis on an independent workstation ([employer] Platform, [employer]). Contrast: ProHance??? (Gadoteridol) FINDINGS MORPHOLOGY AND FUNCTION Left ventricle: The left ventricle is normal in size. The indexed left ventricular end-diastolic volume (LVEDVi) is 65 ml/m2 (reference range 57-105 ml/m2 in males, 56-96 ml/m2 in females). Normal left ventricular systolic function is present. There is normal left ventricular wall thickness. There are no regional wall motion abnormalities noted. LVEF is calculated at 65.9% (reference range 57-77%). Right ventricle: The right ventricle is mildly dilated. The indexed right ventricular end-diastolic volume (RVEDVi) is 85 ml/m2 (reference range 61-121 ml/m2 in males, 48-112 ml/m2 in females). Normal right ventricular systolic function is present. No evidence of RV aneurysms or RV regional wall motion abnormalities. RVEF is calculated at 52.3% (reference range 52-72% in males, 51-71% in females). Atria: The left atrium is normal in size. The maximum indexed left atrial volume is 27 ml/m2 (reference range 26-52 ml/m2 in males, 27-53 ml/m2 in females). The right atrium is normal in size. The maximum indexed right atrial volume is 26 ml/m2 (reference range 18-90 ml/m2). Aorta: The diameter of the aortic annulus is normal, measuring 30 mm (coronal view reference range 21-30 mm in males, 19-27 mm in females). The diameter of the aortic sinus is normal, measuring 33 mm (coronal view reference range 25-42 mm in males, 24-36 mm in females). The diameter of the sinotubular junction is normal, measuring 25 mm (coronal view reference range 18-32 mm in males, 18-28 mm in females). The diameters of the ascending and descending thoracic aorta are normal. Main pulmonary artery: The main pulmonary artery diameter is normal. Pericardium: The pericardial thickness is normal. The pericardial thickness measures 2.0 mm (normal < 4.0 mm). There is no pericardial effusion. VALVES The valvular morphologies in the visualized sequences appear normal. There is no significant valvular stenosis or regurgitation of the mitral, aortic, tricuspid, or pulmonic valve noted visually. Systolic anterior motion of the mitral valve is not visualized. Ratio of pulmonary to systemic flow, Qp:Qs ratio = 0.9 (normal < or = 1.2, hemodynamically significant shunt > 1.5), demonstrating no evidence of hemodynamically significant shunt. TISSUE CHARACTERIZATION Resting Perfusion: Normal myocardial blood flow at rest. No evidence of resting hypoperfusion. Myocardial Fibrosis and/or edema: Normal gadolinium kinetics are present. No evidence of late gadolinium enhancement is noted, consistent with absence of myocardial scarring, infarction, or necrosis. T2-weighted imaging demonstrates no evidence of myocardial edema or inflammation. OTHER No other significant findings are noted. However, this exam is focused on the cardiac structure and function. IMPRESSION Normal LV size with normal LV systolic function. LVEDVi= 65 ml/m2 and LVEF= 65.9%. Mild RV dilation with normal RV systolic function. RVEDVi= 85 ml/m2 and RVEF= 52.3%. No atrial enlargement. No CMR evidence of myocardial scarring, infarction, or necrosis. No evidence of myocardial edema or inflammation. Perfusion analysis demonstrates normal blood flow at rest with no evidence of resting hypoperfusion. Ratio of pulmonary to systemic flow, Qp:Qs ratio = 0.9 (normal < or = 1.2, hemodynamically significant shunt > 1.5), demonstrating no evidence of hemodynamically significant shunt. This CMR demonstrates normal biventricular systolic function with presence of mild RV dilation. No evidence of LV cardiomyopathy or ARVC. No evidence of infiltrative disease. No evidence of prior myocardial scarring, fibrosis, or infarct. In the setting of RV dilation, further evaluation with pulmonary and/or sleep work-up is suggested. COMPARISON None CRITICAL RESULT None COMMUNICATION As above The findings of this cardiac MR were reviewed, reported, and signed by Kael Fajardo MD (Ceramic Restorer). Conclusion Electronically signed by : Whit Fajardo MD 10/28/2024 19:49:48
[2024-10-19] MEDS: 0.9 % SODIUM CHLORIDE 50 ML VIAL 20 ML IV (11:51)
[2024-10-19] MEDS: GADOTERIDOL INJ 10ML SYRINGE 7 ML IV (11:52)
[2024-10-19] MEDS: SODIUM CHLORIDE 0.9% 10ML SYR (RAD ONLY) 10 ML IV (11:52)
[2024-10-19] MEDS: GADOTERIDOL INJ 20ML SYRINGE 20 ML IV (11:52)
--- NOTE | 2024-10-19 13:00 | MR_ITS ---
FINAL REPORT TECHNIQUE: Multiplanar MR without gadolinium enhancement CLINICAL HISTORY: DDD, chronic low back pain FINDINGS: Sagittal images show normal vertebral height. Alignment is normal. Marrow signal pattern is unremarkable.. Discogenic and but signal changes are seen at L3-4 and L4-5. L1-2: Unremarkable L2-3: Unremarkable L3-4: Moderate annular disc bulge. Facet arthropathy. Moderate central canal stenosis. Mild bilateral neural foraminal narrowing. L4-5: Moderate annular disc bulge and facet arthropathy. Mild central canal stenosis. Mild neural foraminal narrowing. L5-S1: Mild annular disc bulge. Facet arthropathy. Moderate bilateral neural foraminal narrowing. Mild central canal stenosis. IMPRESSION: 1. Multilevel degenerative changes lower lumbar spine as above most pronounced at L3-4. Authenticated and ERN
== END 2024-10-19 23:59 | disposition home or self-care (01) ==
PROVIDERS: PCP Nurse Practitioner Family; Visit Provider Nurse Practitioner
DX: I11.9 Hypertensive heart disease without heart failure (principal); M47.816 Spondylosis without myelopathy or radiculopathy, lumbar region; E78.5 Hyperlipidemia, unspecified; M51.369 Other intervertebral disc degeneration, lumbar region without mention of lumbar back pain or lower extremity pain; R00.2 Palpitations; R94.31 Abnormal electrocardiogram [ECG] [EKG]; Z04.89 Encounter for examination and observation for other specified reasons
CPT/HCPCS: 70200; 72148; 75561; A9576

== ENCOUNTER 2024-11-20 14:54 | Day surgery (SDC) | payer OTHER, SELFPAY ==
[2024-11-20 15:04] VITALS: BP 109/79; PULSE 94; RESP 16; O2SAT 96; BMI 39.9
[2024-11-20 15:27] VITALS: BP 134/74; PULSE 93; RESP 18; O2SAT 95
--- NOTE | 2024-11-20 15:27 | P.PCN_ITS ---
Procedure Date: 11/20/24 Time: 15:30 Anesthesiologist:: Matheus Esparza CRNA Complications:: None Pre-procedure Diagnosis:: Bilateral sacroiliitis Post-procedure Diagnosis:: Same Indications for Procedure:: Patient is a very pleasant 49-year-old male who comes in today for bilateral sac roiliac joint injections cortisone local acetic. Patient describes low lumbar back pain off midline bilaterally. Bilateral posterior hip pain. Difficulty transitioning from sitting to standing. Difficulty with ambulation due to low back pain. He rates his pain 7/10. Procedure Details:: Procedure: Bilateral sacroiliac joint injections under fluoroscopy Informed consent was obtained and the risks and benefits of the procedure were explained to the patient.~ The patient was taken to the procedure room and noninvasive monitors were placed including a noninvasive blood pressure cuff and pulse oximeter.~ The patient was placed prone on the procedure table. Both hips were cleansed using Betadine as a cleansing solution. C-arm fluoroscopy was used to view the right sacroiliac joint.~ The skin and subcutaneous tissues were anesthetized using lidocaine 1.5% and a 25-gauge needle.~ After this, a 22-gauge spinal needle was inserted under fluoroscopic guidance into the inferior aspect of the right sacroiliac joint.~ Omnipaque dye was injected and good spread was seen throughout the joint.~ After this, approximately 5 mL of bupivacaine, 0.25% and dexamethasone 5 mg was incrementally injected into the right sacroiliac joint. We then moved to the left sacroiliac joint.~ The skin and subcutaneous tissues were anesthetized using lidocaine 1.5% and a 25-gauge needle.~ After this, a 22- gauge spinal needle was inserted under fluoroscopic guidance into the inferior aspect of the left sacroiliac joint.~ Omnipaque dye was injected and good spread was seen throughout the joint. After this, approximately 5 mL of bupivacaine, 0.25% and dexamethasone 5 mg was incrementally injected into the left sacroiliac joint.~ The patient tolerated the procedure well with no complications. The patient was observed in the Pain Clinic and then was discharged home neurologically intact. Plan and Disposition:: Patient was discharged without incident.
[2024-11-20 15:51] VITALS: BP 132/75; PULSE 91; RESP 18; O2SAT 99
[2024-11-20] MEDS: DEXAMETHASONE 10MG/ML 1ML VIAL 10 MG (15:51)
[2024-11-20 15:52] VITALS: BP 132/75; PULSE 91; RESP 18; O2SAT 99
== END 2024-11-20 15:38 | disposition home or self-care (01) ==
PROVIDERS: PCP Nurse Practitioner Family; Visit Provider Nurse Anesthetist, Certified Registered
DX: M46.1 Sacroiliitis, not elsewhere classified (principal); I10 Essential (primary) hypertension; E78.5 Hyperlipidemia, unspecified; F41.1 Generalized anxiety disorder; F32.9 Major depressive disorder, single episode, unspecified; J84.9 Interstitial pulmonary disease, unspecified; M19.90 Unspecified osteoarthritis, unspecified site; Z88.0 Allergy status to penicillin; Z88.8 Allergy status to other drugs, medicaments and biological substances; Z79.51 Long term (current) use of inhaled steroids; Z79.1 Long term (current) use of non-steroidal anti-inflammatories (NSAID); Z79.899 Other long term (current) drug therapy
CPT/HCPCS: 64450; J1100

== ENCOUNTER 2024-11-23 07:36 | Outpatient (CLI) | payer OTHER, SELFPAY ==
--- OUTSIDE RECORDS SUMMARY | 2024-05-12 17:30 | XMS_ITS ---
Author Organization [facility] Address [address] [place] [address] Care Team Providers Care Plastics Technician Name Role Phone Ayse Gusman Primary Care Provider AYSE GUSMAN Unavailable Unavaila ble Migration, Provider Unavailable Unavailable Allergies Allergen (clinical drug ingredient) Drug/Non Drug Allergy documented on EMR Reaction Allergy Type Onset Date Status Penicillin Unknown Drug Allergy Active REASON FOR VISIT Mult To [facility] Conversion Encounter Medications Medication SIG (Take, Route, [...] drug interaction check* 08/31/2021 Active Dexcom G6 Investor Relations Coordinator - *Please revie w and pick correct strength-[facility]ulati [facility]. If intended option is [...] review and pick correct strength-formulati on from [employer] [facility] options. If intended option is not shown, discontinue and re-order from Quick Search* Active Encounters Encounter Location Date Provider Diagnosis [facility] PED [facility] [address] [facility] [address] [place] [address] 05/12/2024 Provider Migration Plan Of Treatment Medication [...] *Please review and pick correct strength-formulation from [employer] options. If intended option is not shown, discontinue and re-order from Quick Search* Progress Notes * Raghav ALICIADOB:1975 (49 yo M)Acc No.[id number]:05/12/2024 Patient: Vidal NOEMYSHARLENERaghav Provider: George tyler Migration :1975 A ge:48 Y S ex:Male Date:05/12/2024 Address:[address] [place], [id number] Pcp:Ayse Gusman Subjective: * Chief Complaints: * [...] and drug interaction check*, Taking Dexcom G6 Investor Relations Coordinator - , Notes to Pharmacist: *Please review [...] Electronic signature of Brigido lazo Migration on 11/23/2024 at 07:39 AM EDT Sign off status: Pending * Provider: George tyler Migration Date: 0 05/12/2024 Generated for Annabella arteaga/Demetria/Anushaitting on: 1 07:39 AM EDT
--- OUTSIDE RECORDS SUMMARY | 2024-11-23 07:39 | XMS_ITS | Clinical Summary ---
Author Organization [facility] Address [address] [place] [address] Care Team Providers Care Ladle Repairman Name Role Phone Myles Segovia MD Primary [...] 2021 Sigmoidoscopy 2021 [facility]-Colorectal Cancer Screening 2021 [id number] Vaccine (2 - season) 2024 05/14/2020 [facility]-Influenza Vaccine (#1) 2024 11/26/2019 [facility]-Zoster [...] to complete this topic Insurance CHRIS IGLESIAS [id number] [facility] Care Teams Ladle Repairman Relationship Specialty Start Date End Date Myles Segovia MD [address] [place] [address] PCP - General 06/20/20
--- OUTSIDE RECORDS SUMMARY | 2024-11-23 07:39 | XMS_ITS | Clinical Summary ---
Author Organization [employer] ([place], [place], [place], [place]) Address [address] [place] [address] Care Team Providers Care Intelligent Systems Engineer Name Role Phone Unavailable Primary Care Provider [...] Date Sergey rded Speak language other than Vincentian at home Not on file 07/27/2023 Want [...] Screening (12+) 1988 COVID-19 VACCINE (2 - 2024-2 6 season) 2024 05/14/2020 Influenza Vaccine (#1) 2024 DTAP/TDAP/TD VACCINES (3 - T d or Tdap) 11/27/2028 11/27/2018, 09/20/2018 Pneumococcal Vaccine: 0-49 Years Aged Out No longer eligible b ased on patient's age to complete this topic Insurance
--- OUTSIDE RECORDS SUMMARY | 2024-11-23 07:39 | XMS_ITS | Referral Summary ---
Author Organization [employer] ([place], [place], [place], [place]) Address [address] [place] [address] Care Team Providers Care Ekg Manager Name Role Phone Unavailable Primary Care [...] Date Sergey rded Speak language other than Uzbek at home Not on file 07/27/2023 Want [...]
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
--- OUTSIDE RECORDS SUMMARY | 2024-11-23 07:39 | XMS_ITS | Patient Health Record ---
Author Organization [facility] Address [address] [place] [address] Care Team Providers Care Executive Housekeeper Name Role Phone Ayse Gusman Primary Care Provider [phone] AYSE GUSMAN Unavailable Unavaila ble Migration, Provider [...] drug interaction check* 08/31/2021 Active Dexcom G6 Assistant Casino Shift Manager - *Please revie w and pick [...] W/U Status Risk Notes Problem Essential hypertension (66579301) HTN (hypertension), benign (I10) Active confirmed Problem Chronic pain (80575569) Other chronic pain (G89.29) Active confirmed Problem Chronic fatigue syndrome (43968949) Chronic fatigue (R53.82) Active confirmed Problem Hyperuricemia (28080568) Hyperuricemia (E79.0) Active confirmed Problem Type I diabetes mellitus without complication (963796173) Type 1 diabetes mellitus without complication (E10.9) Active confirmed Encounters Encounter Location Date Provider [facility] [address] [facility] [address] [facility] [place] [address] 05/12/2024 Provider Migration Plan Of Treatment Pending Test Test Name Order Date C-Krxp-Hhjybzo Antibody Titer 08/24/2021 M-Vitamin B12 08/24/2021 M-Folate 08/24/2021 M-Microalb/Creat Ratio, Randm Ur 022 Insurance Providers Payer Name Payer Address Payer Phone Subscriber Number Group Number Insured Name Patient Relationship to Insured Coverage Start Date Coverage End Date R P Violetta VIRGEN [address] [place] [address] [id number] [phone] Raghav Alicia Self - patient is the insured Medical (General) History Medical History History ICD Code Diabetic Hyperlipidemia HTN Gout Arthritis Surgical History Surgery Date(Month/Year) vascetomy 2005 Hospitalization History Reason Date(Month/Year) Diabetes 1995
[2024-11-23] MEDS: SODIUM CHLORIDE 0.9% 10ML SYR (RAD ONLY) 10 ML IV (07:45)
--- NOTE | 2024-11-23 08:00 | NM_ITS ---
APPROVED REPORT Strategy Specialist: Procedure: 99mTc-PYP Cardiac Amyloidosis Imaging Clinical Indication: Heart failure, increased LV wall thickness Protocol: The patient received 26.8 mCi 99mTc-PYP intravenously. Planar and SPECT imaging was performed approximately 3 hours post injection. Planar images included anterior, left lateral and MAHESH-45 projections. Findings: Visual interpretation: Planar and SPECT images were reviewed The overall quality of the study was good. Semi quantitative SPECT findings showed a grade 0. Impression: 1. Overall, the quality of the study was good. 2. Semi quantitative SPECT findings showed grade 0. 3. Overall interpretation of the findings is not suggestive of ATTR amyloidosis. This study and report were reviewed and signed by Kael Fajardo MD (animal bounty hunter). Conclusion Electronically signed by : Whit Fajardo MD 11/29/2024 00:32:41
[2024-11-23] MEDS: PYROPHOSPHATE CARDIAC (PYP);1 DOSE VIAL IV (10:32)
== END 2024-11-23 23:59 | disposition home or self-care (01) ==
LOC: RAD 07:37
PROVIDERS: PCP Nurse Practitioner Family; Visit Provider Internal Medicine
DX: I20.0 Unstable angina (principal); R00.2 Palpitations; R94.31 Abnormal electrocardiogram [ECG] [EKG]; R06.09 Other forms of dyspnea
CPT/HCPCS: 78803

== ENCOUNTER → 2024-11-29 15:38 | Outpatient (CLI) | payer OTHER, SELFPAY ==
--- OUTSIDE RECORDS SUMMARY | 2024-11-29 15:42 | XMS_ITS | Clinical Summary ---
Author Organization [facility] ([place], [place], [place], [place]) Address [address] [place] [address] Care Team Providers Care Food Truck Caterer Name Role Phone Unavailable Primary Care Provider [...] Date Sergey rded Speak language other than Jordanian at home Not on file 07/27/2023 Want [...]
--- OUTSIDE RECORDS SUMMARY | 2024-11-29 15:42 | XMS_ITS | Clinical Summary ---
Author Organization [facility] Address [address] [place] [address] Care Team Providers Care Patient Accounts Manager Name Role Phone Myles Segovia MD Primary Care Provider [phone] Family History Medical History Relation Name Comments [...] 2021 Sigmoidoscopy 2021 [facility]-Colorectal Cancer Screening 2021 [id number] Vaccine (2 - season) 2024 05/14/2020 [facility]-Influenza [...] to complete this topic Insurance [place] [id number] [facility] Care Teams Patient Accounts Manager Relationship Specialty Start Date End Date Myles Segovia MD [address] [place] [address] PCP - General 06/20/20
--- OUTSIDE RECORDS SUMMARY | 2024-11-29 15:42 | XMS_ITS | Referral Summary ---
Author Organization [facility] ([place], [place], [place], [place]) Address [address] [place] [address] Care Team Providers Care Mission Planner Name Role Phone Unavailable Primary Care Provider [...] Date Sergey rded Speak language other than Tanzanian at home Not on file 07/27/2023 Want [...]
== END ==
LOC: SL 15:38
PROVIDERS: PCP Nurse Practitioner Family; Visit Provider Specialist
DX: G47.33 Obstructive sleep apnea (adult) (pediatric) (principal); G47.34 Idiopathic sleep related nonobstructive alveolar hypoventilation

== ENCOUNTER → 2024-12-13 20:25 | Outpatient (CLI) | payer OTHER, SELFPAY ==
--- OUTSIDE RECORDS SUMMARY | 2024-05-12 16:30 | XMS_ITS ---
Author Organization [facility] Address [address] [place] [address] Care Team Providers Care Rehab Technician Name Role Phone Ayse Gusman Primary Care Provider AYSE GUSMAN Unavailable Unavaila ble Migration, Provider Unavailable Unavailable Allergies Allergen (clinical drug ingredient) Drug/Non Drug Allergy documented on EMR Reaction Allergy Type Onset Date Status Penicillin Unknown Drug Allergy Active REASON FOR VISIT Mult To [facility] Conversion Encounter Medications Medication SIG (Take, Route, Frequency, Duration) Notes Start Date End Date Status Centrum Men - 1 tab(s) orally once a day; Duration: 30 day(s) Active DULoxetine HCl 60 MG 1 cap(s) orally once a day; Duration: 30 day(s) Betsy Tobias Active DEXCOM G6 SENSOR 3 PACK BLOOD-GLUCOSE SENSOR - *Please review for potential replacement for e-prescription and drug interaction check* 08/31/2021 Active Dexcom G6 Converter Skimmer - *Please revie w and pick correct [facility]. If intended option is not shown, discontinue and re-order from Quick Search* 08/31/2021 Active DEXCOM G6 BLOOD-GLUCOSE TRANSMITTER - *Please review for potential replacement for e-prescription and drug interaction check* 08/31/2021 Active Diclofenac Sodium 75 MG 1 tab(s) orally 2 times a day; Duration: 90 days Active LEVEMIR 100 UNITS/ML 90 UNITS SUBCUTANEOUSLY ONCE A DAY; Duration: 90 DAYS *Please review for potential replacement for e-prescription and drug interaction check* Active Lisinopril 10 MG 1 tab(s) orally once a day; Duration: 90 days Active NovoLOG FlexPen 100 UNIT/ML 40 units subcutaneously 3 times a day (before meals); Duration: 90 days Active Allopurinol 300 MG 1 tab(s) orally once a day; Duration: 90 days Active B-12 2500 MCG 1 tab(s) sublinguall y once a day; Duration: 90 days Active Simvastatin 5 MG 1 tab(s) orally once a day (at bedtime); Duration: 90 days Active Vitamin D3 1250 MCG 1 CAP(S) ORALLY ONCE A WEEK; Duration: 90 DAYS 2500mcg *Please review and pick correct strength-formulati on from [employer] options. If intended option is not shown, discontinue and re-order from Quick Search* Active Encounters Encounter Location Date Provider Diagnosis [facility] PED [facility] [address] [facility] [address] [place] [address] 05/12/2024 Provider Migration Plan Of Treatment Medication Medication Name Sig Start Date Stop Date Notes Diclofenac Sodium 75 MG 1 tab(s) orally 2 times a day; Duration: 90 days LEVEMIR 100 UNITS/ML 90 UNITS SUBCUTANEO USLY ONCE A DAY; Duration: 90 DAYS *Please review for potential replacement for e-prescription and drug interaction check* Lisinopril 10 MG 1 tab(s) orally once a day; Duration: 90 days NovoLOG FlexPen 100 UNIT/ML 40 units subcutaneously 3 times a day (before meals); Duration: 90 days Allopurinol 300 MG 1 tab(s) orally once a day; Duration: 90 days B-12 2500 MCG 1 tab(s) sublinguall y once a day; Duration: 90 days Simvastatin 5 MG 1 tab(s) orally once a day (at bedtime); Duration: 90 days Vitamin D3 1250 MCG 1 CAP(S) ORALLY ONCE A WEEK; Duration: 90 DAYS 2500mcg *Please review and pick correct strength-formulation from [employer] options. If intended option is not shown, discontinue and re-order from Quick Search* Progress Notes * Raghav ALICIADOB:1975 (49 yo M)Acc No.[id number]:05/12/2024 Patient: Vidal NOEMYSHARLENERaghav Provider: George tyler Migration :1975 A ge:48 Y S ex:Male Date:05/12/2024 Address:[place], [id number] Pcp:Ayse Gusman Subjective: * Chief Complaints: * 1 . Multum To Medispan Conversion Encounter. * Medical History: * Medications: T aking DULoxetine HCl 60 MG Capsule Delayed Release Particles 1 cap(s) orally once a day , Notes to Pharmacist: Betsy Tobias, Taking Centrum Men - Tablet 1 tab(s) orally once a day , Taking DEXCOM G6 BLOOD-GLUCOSE TRANSMITTER - , Notes to Pharmacist: *Please review for potential replacement for e-prescription and drug interaction check*, Taking Dexcom G6 Converter Skimmer - , Notes to Pharmacist: *Please review and pick correct strength-formulation from [employer] options. If intended option is not shown, discontinue and re-order from Quick Search*, Taking DEXCOM G6 SENSOR 3 PACK BLOOD-GLUCOSE SENSOR - , Notes to Pharmacist: *Please review for potential replacement for e-prescription and drug interaction check* * Allergies: P enicillin. Objective: * Vitals: Assessment: Plan: * Treatment: * * Electronic signature of Brigido lazo Migration on 12/13/2024 at 08:29 PM EST Sign off status: Pending * Provider: George tyler Migration Date: 0 05/12/2024 Generated for Annabella arteaga/Demetria/Anushaitting on: 1 02/13/2024 08:29 PM EST
--- OUTSIDE RECORDS SUMMARY | 2024-12-13 20:29 | XMS_ITS | Patient Health Record ---
Author Organization [facility] Address [address] [place] [address] Care Team Providers Care Meal Cooker Name Role Phone Ayse Gusman Primary Care [...] drug interaction check* 08/31/2021 Active Dexcom G6 Metal Molder - *Please revie w and pick correct [...] W/U Status Risk Notes Problem Essential hypertension (96934953) HTN (hypertension), benign (I10) Active confirmed Problem Chronic pain (32929348) Other chronic pain (G89.29) Active confirmed Problem Chronic fatigue syndrome (68688198) Chronic fatigue (R53.82) Active confirmed Problem Hyperuricemia (86656502) Hyperuricemia (E79.0) Active confirmed Problem Type I diabetes mellitus without complication (308143050) Type 1 diabetes mellitus without complication (E10.9) Active confirmed Encounters Encounter Location Date Provider Diagnosis [facility] [address] [facility] [address] [facility] [place] [address] 05/12/2024 Provider Migration Plan Of Treatment Pending Test Test Name Order Date A-Tbqv-Xxxzrcg Antibody Titer 08/24/2021 M-Vitamin B12 08/24/2021 M-Folate 08/24/2021 M-Microalb/Creat Ratio, Randm Ur 022 Insurance Providers Payer Name Payer Address Payer Phone Subscriber Number Group Number Insured Name Patient Relationship to Insured Coverage Start Date Coverage End Date R P Violetta VIRGEN [address] [place] [address] [id number] [phone] Raghav Alicia Self - patient is the insured Medical (General) History Medical History History ICD Code Diabetic Hyperlipidemia HTN Gout Arthritis Surgical History Surgery Date(Month/Year) vascetomy 2005 Hospitalization History Reason Date(Month/Year) Diabetes 1995
--- OUTSIDE RECORDS SUMMARY | 2024-12-13 20:29 | XMS_ITS | Referral Summary ---
Author Organization [employer] ([place], [place], [place], [place], [place]) Address [address] [place] [address] Care Team Providers Care Search Manager Name Role Phone Unavailable Primary Care [...] Date Sergey rded Speak language other than Senegalese at home Not on file 07/27/2023 Want [...]
--- OUTSIDE RECORDS SUMMARY | 2024-12-13 20:29 | XMS_ITS | Data Portability ---
Author Organization [facility] Address [address] [facility] [address] [place] [address] Care Team Providers Care Electric Razor Assembler Name Role Phone DEON ALICIA Primary Care Provider [phone] Assessment Encounter Date Assessment Date Assessment LastModified by Organization Details LastModified Time 02/11/2020 02/11/2020 Plan: I have personally reviewed this patient's BROCK report as per [place] medical board guidelines and it was found [...] likes-Sambre? sp. Preventative Care: PCP-Dr. Faustin in [place], Referred by Dr. Kearns. Return to Clinic-pt [...] None recorded. Referral pain management referral 2019 CARMEN Keyes MD, [address] [place], [address], 1 19:25:46 Procedures None recorded. Surgeries None recorded. Imaging XR, hand, 2 view 2019 [facility], [address] [place], [address], 0 10:59:04 XR, elbow, 2 view 2019 [facility], [address] [place], [address], 0 10:54:15 XR, lumbosacra l spine, 2 or 3 view 2019 [facility], [address] [place], [address], 0 13:47:41 XR, thoracic spine, 2 view 2019 [facility], [address] [place], [address], 0 13:48:00 Medication Orders celecoxib 100 mg capsule 2019 [facility], [address], [address], 0 09:41:43 Patient TargetsNo targets recorded. Patient Instructions Encounter Date Encounter Id Patient Instructions Last Modified By Organization Details Last Modified Time 01/24/2020 [id number] osteoarthritis: care instructions [place] [address] Not available 01/24/2020 09:41:24 Reason for Referral Pain Management Referral for Generalized osteoarthritis diffuse degenerative process and back pains Referring Physician: Manolo Kearns, Rheumatology, Encounter Date: 01/24/2020 Results Created Date Observation Date Name Description Value Unit Range Abnormal Flag Note LastModifiedBy Organization Detail LastModifiedTime 01/24/20 20 01/24/2020 XR, elbow , [address] [place] [address] Paticharisma t Name: DANGELO kumar : 977 Stephanie kumar 45 Orderi ng Provid er: [facility] EXAM DATE: 2019 EXAM: XR LT [...] Grey Luevano MD on 2019 10:[address], [address], 01/27/2020 18:02:34 01/24/20 20 01/24/2020 XR, hand, [address] [place] [address] [facility] [address] Paticharisma t Name: DANGELO kumar : 9[address] Stephanie kumar 45 Orderi ng Provid er: [facility] EXAM DATE: 2019 EXAM: XR CALVIN HANDS [...] Grey Luevano MD on 2019 10:[address], [address], 01/27/2020 18:02:34 01/24/20 20 01/24/2020 XR, lumbo sacra l spine , 2 or 3 view [place] [address] [place] [address] Patien t Name: DANGELO kumar : Stephanie kumar 45 Orderi ng Provid er: [facility] EXAM DATE: 2019 EXAM: XR LUMBAR AP/LAT [...] Grant Gill MD on 2019 1:[address], [address], 01/27/2020 18:02:33 01/24/20 20 01/24/2020 XR, thora cic spine , 2 view [place] [facility] [address] [place] [address] [place] [address] Patien t Name: DANGELO kumar : 7 Stephanie kumar 45 Orderi ng Provid er: [facility] EXAM DATE: 2019 EXAM: XR THORAC IC [...] Gill MD on 2019 1:42 PM [email or web address] [facility]iology [address], [address], 01/27/2020 18:02:33 Result Notes Documentation Provider Name and Address Organization Details Recorded Time Xr, Lumbosacral Spine, 2 Or 3 View : [place] [address] Patient Name: DANGELO ALICIA Patient : 1975 [...] Tonny Gill MD LO SHAHAB KEARNS MD [address] [place] [address], [phone], [facility] 01/27/2020 18:02:33 Xr, Thoracic Spine, 2 View : [address] [address] Patient Name: DANGELO ALICIA Patient : 1975 [...] By: Tonny Gill MD LO KEARNS MD [address] [place] [address], [phone] [place] [address] 01/27/2020 18:02:33 Xr, Elbow, 2 View : [place] [address] Patient Name: DANGELO ALICIA Patient : 1975 Patient Ordering Provider: SHAHAB KEARNS EXAM DATE: 01/24/2020 EXAM: XR LT ELBOW, AP/LAT HISTORY: Pain and trauma COMPARISON: None. FINDINGS: Normal bone to bone relationships are present. No fracture or dislocation. No intraosseous lesion. No fat pad sign. IMPRESSION: 1. No significant bony finding Interpreted By: Grey Luevano MD LO KEARNS MD [address] [place] [address], [phone] [place] [address] 01/27/2020 18:02:34 Xr, Hand, 2 View : [place] [address] Patient Name: DANGELO ALICIA Patient : 1975 Patient Ordering Provider: SHAHAB KEARNS EXAM DATE: 01/24/2020 EXAM: XR CALVIN HANDS 2 VIEWS HISTORY: Hand pain COMPARISON: None. FINDINGS: No fracture or dislocation. No intraosseous lesion or erosion. Minimal degenerative change of the first carpometacarpal joints bilaterally. IMPRESSION: 1. No acute bony findings Interpreted By: Grey Luevano MD LO KEARNS MD [address] [place] [address], [phone] 01/27/2020 18:02:34 Problems No Known Problems Medical Equipment None Reported. Allergies Allergen ID Allergen Name Allergen Category Reaction Reaction Severity Criticality Documentation Date Start Date Code Code System Note Provider Name and Address Organization Details Recorded Time 914850 Product containin g penicilli n (product) medicatio n rash mild Not available 01/24/2020 59471 4751 SNOMED Aemrica Jeaneth [facility] 0 09:16:58 Medications Name Sig Start Date [...] Updated DateTime 02/11/2020 180.34 cm 36.3 kg/m2 223057.0 2 g 8 138/86 mm[Hg] Billie Mendez [facility] 1 09:09:42 Date Recorded Body weight Body mass index (BMI) Body height Respiratory rate Heart rate Systolic And Diastolic Provider Name and Address Organization Details Last Updated DateTime 0 148159. 52 g 36.2 kg/m2 180.34 cm 18 /min 99 /min 136/87 mm[Hg] America Eric [facility] 0 09:16:24 Social History Question Answer Notes LastModified by Organizat ion Details LastModified Time Tobacco Smoking Status Never Smoker America Eric [facility] 01/24/2020 09:14:13 How Much Tobacco Do You [...] History Nothing Reported. Medical History Condition Response Diabetes Y Bleeding Disorder N Arthritis Y Emphysema N COPD N Asthma N Heart Disease N Rheumatoid Arthritis N Hypertension Y Past Encounters Encounter ID Performer Location Encounter Start Date Encounter Closed Date Diagnosis/Indication Diagnosis SNOMED-CT Code Diagnosis ICD10 Code Diagnosis IMO Codes Diagnosis Note [id number] MANOLO KEARNS MD RHEUMATOL OGY [address] [place] [address] 01/24/2020 08:58:18 01/24/2020 09:45:11 Generalized osteoarthritis 953443163 M15.9 44-year-ol d male with chronic mechanical [...] well as left elbow. Chronic back pain 775607 002 M54.9 Mechanical low back pain. 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 He is working on weight loss. X-rays of thoracic and lumbar spine obtained. We will follow with the pain management clinic. I will initiate physical therapy after review of the x-rays. Left media l elbow tendinopathy 5482064446 70540 M77.02 he has clinical evidence of left medial epicondyli tis, chronic and aggravated after a fall at work. I will review the x-rays and consider physical therapy. [id number] JOHN KEYES MD [facility] [address] [place] [address] 02/11/2020 08:27:40 02/11/2020 09:42:22 Chronic low back pain 567953857 M54.5 Chronic neck pain 770914 4624 107 M54.2 Degenerati on of lumbar intervertebral disc 19327473 M51.36 Lumbar fac et joint pain 534864048 M54.5 Health Concerns Section Related Observation LastModified by Organization Detai ls LastModified Time None Recorded Concern Status LastModified by Organization Details LastModified Time None Recorded Advance Directives Directive None Recorded Payers Insurance Date Sequence Insurance Name Policy Number Policy Melendez Covered Member ID Melendez Member ID Guarantor Name 02/23/2020 1 [place] [id number] Nisha Alicia [id number] Dangelo Alicia Notes Date Note Type Note Provider Name and Address Organization Details Recorded Time 01/24/2020 text/html ROS as noted in the HPI 44 years old male seen today for diffuse body pains. Symptoms are going on for years!. It's getting worse every year . 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 He denies any history of infections. He denies any history of psoriasis or inflammatory bowel diseases. MANOLO KEARNS MD [address] [place] [address], [phone], [facility] 01/24/2020 11:07:04 02/11/2020 text/html The pt complains [...] young and sustained whiplash. 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 JOHN KEYES MD [address] [place] [address], [phone], [facility] 02/11/2020 19:18:01
--- OUTSIDE RECORDS SUMMARY | 2024-12-13 20:29 | XMS_ITS | Clinical Summary ---
Author Organization [employer] ([place], [place], [place], [place], [place]) Address [address] [place] [address] Care Team Providers Care Industrial Engineering Intern Name Role Phone Unavailable Primary Care Provider [...] Date Sergey rded Speak language other than Tongan at home Not on file 07/27/2023 Want [...] patient's age to complete this topic Insurance [facility] [place] [id number] [facility]
--- OUTSIDE RECORDS SUMMARY | 2024-12-13 20:29 | XMS_ITS | Clinical Summary ---
Author Organization [facility] Address [address] [place] [address] Care Team Providers Care Principal Consultant Name Role Phone Myles Segovia MD Primary Care Provider [phone] Family History Medical History Relation Name Comments [...] 2021 Sigmoidoscopy 2021 [facility]-Colorectal Cancer Screening 2021 [id number] Vaccine (2 - season) 2024 05/14/2020 [facility]-Influenza [...] to complete this topic Insurance [place] [id number] [facility] Care Teams Principal Consultant Relationship Specialty Start Date End Date Myles Segovia MD [address] [place] [address] PCP - General 06/20/20
== END ==
LOC: SL 20:27
PROVIDERS: PCP Nurse Practitioner Family; Visit Provider Specialist
DX: G47.33 Obstructive sleep apnea (adult) (pediatric) (principal); G47.34 Idiopathic sleep related nonobstructive alveolar hypoventilation; G47.36 Sleep related hypoventilation in conditions classified elsewhere
CPT/HCPCS: 95811